=== PATIENT | male | born 1955 | race Caucasian/White ===

== ENCOUNTER 2022-08-26 00:44 | Inpatient (IN) | payer OTHER, SELFPAY ==
[2022-08-26] VITALS (83 sets, daily range): BP systolic 74–171; BP diastolic 48–114; PULSE 63–149; RESP 13–28; TEMP 36.8–37.3; O2SAT 85–100; BMI 27.1
[2022-08-26] MEDS: etomidate 2 mg/mL INJ SDV 10 mL 30 MG IVP (00:52)
[2022-08-26] MEDS: succinylcholine 20 mg/mL SDV 10mL 150 MG IVP (00:53)
--- NOTE | 2022-08-26 00:53 | CTR_ITS ---
PROCEDURE INFORMATION: Exam: CT Head Without Contrast Exam date and time: 08/26/2022 1:48 AM Age: 67 years old Clinical indication: Other: Unresponsive TECHNIQUE: Imaging protocol: Computed tomography of the head without contrast. Radiation optimization: All CT scans at this facility use at least one of these dose optimization techniques: automated exposure control; mA and/or kV adjustment per patient size (includes targeted exams where dose is matched to clinical indication); or iterative reconstruction. REPORTING DATA: Count of CT and Cardiac NM exams in prior 12 months: This patient has received [address] and 0 known cardiac nuclear medicine studies in the 12 months prior to the current study. COMPARISON: No relevant prior studies available. RADIATION DOSE METRICS: Total DLP (mGy-cm): 1241.18 FINDINGS: Brain: No cerebral/cerebellar infarct. No brain parenchymal or extra-axial hemorrhage. Cerebral ventricles: No ventriculomegaly. Paranasal sinuses: Paranasal sinuses are clear. No air-fluid level. Mastoid air cells: Visualized mastoid air cells are clear. Bones/joints: No calvarial or skull base fracture. Soft tissues: Unremarkable. CT/CT head wo con* [id number] IMPRESSION: 1. No acute infarct or hemorrhage. 2. No calvarial or skull base fracture.
--- NOTE | 2022-08-26 01:02 | CTR_ITS ---
PROCEDURE INFORMATION: Exam: CT Cervical Spine Without Contrast Exam date and time: 08/26/2022 1:52 AM Age: 67 years old Clinical indication: Injury or trauma; Fall; Other: Fell when becoming unresponsive; Blunt trauma; Additional info: Fall, unresponsive TECHNIQUE: Imaging protocol: Computed tomography of the cervical spine without contrast. Radiation optimization: All CT scans at this facility use at least one of these dose optimization techniques: automated exposure control; mA and/or kV adjustment per patient size (includes targeted exams where dose is matched to clinical indication); or iterative reconstruction. REPORTING DATA: Count of CT and Cardiac NM exams in prior 12 months: This patient has received [address] and 0 known cardiac nuclear medicine studies in the 12 months prior to the current study. COMPARISON: CT head w con [id number] 08/26/2022 1:48 AM RADIATION DOSE METRICS: Total DLP (mGy-cm): 511.78 FINDINGS: Tubes, catheters and devices: Orogastric and endotracheal tubes are in place. Bones/joints: Craniocervical articulation is normal. There is normal vertebral body alignment. There is normal vertebral body alignment. There is mild, diffuse disc space narrowing. The dens is intact. The lateral masses of C1 are symmetric. No fracture. Lungs: Lung apices are normal. Soft tissues: Unremarkable. CT/CT cervical spin wo con* [id number] IMPRESSION: No fracture.
--- NOTE | 2022-08-26 01:02 | XRR_ITS ---
PROCEDURE INFORMATION: Exam: XR Chest Exam date and time: 08/26/2022 12:21 AM Age: 67 years old Clinical indication: Device placement; Ett placement (vent status); Additional info: Unresponsive TECHNIQUE: Imaging protocol: Radiologic exam of the chest. Views: 1 view. COMPARISON: No relevant prior studies available. FINDINGS: Tubes, catheters and devices: ETT is present, tip is about 1 cm above feliz. NGT in place. Left chest defibrillator pad. Lungs: Moderate areas of lower lung hazy patchy lung interstitial density. Pleural spaces: No pneumothorax. Heart/Mediastinum: The heart is large. Bones/joints: Unremarkable. XR/XR chest 1V portable [id number] IMPRESSION: 1. ETT and NGT in place as described. 2. Large heart with severe atherosclerosis. 3. Hazy areas of lung base patchy density may be due to atelectasis, scarring, edema or pneumonitis. 4. No priors.
--- NOTE | 2022-08-26 01:03 | ECG_ITS ---
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 Measurements Intervals [place] Rate: 114 P: 0 MS: 0 QRS: -26 QRSD: 92 T: 18 QT: 316 QTc: 436 Interpretive Statements ATRIAL FIBRILLATION WITH RAPID VENTRICULAR RESPONSE WITH ABERRANT CONDUCTION OR VENTRICULAR PREMATURE COMPLEXES BORDERLINE LEFT AXIS DEVIATION [QRS AXIS < -20] MINIMAL ST DEPRESSION [0.025+ mV ST DEPRESSION] No previous ECG available for comparison Electronically Signed On 08-26-2022 11:28:40 CDT by Eligio Chairez M.D. [email or web address]
[2022-08-26] MEDS: sodium chloride 0.9% 1,000 ML 200 ML IV ×2 (01:04→05:25)
[2022-08-26] MEDS: propofol 10 mg/mL SDV 20 mL 40 MG IVP (01:04)
[2022-08-26] MEDS: propofol 1,000 MG/100 ML INJ 13.61 MG IV ×4 (01:13→22:49)
[2022-08-26 01:20] LABS: INR 1.26 (0.8-1.2)
[2022-08-26 01:21] LABS: Partial Thromboplastin Time 27.5 SECONDS (23.9-36.7)
[2022-08-26 01:23] LABS: D Dimer 0.62 ug/mIFEU (0-0.59)
[2022-08-26 01:24] LABS: ABG PCO2 59.4 mmHg (35-45); Arterial Blood Gas Hematocrit 56.7 % (42-52); Base Excess ABG -16.6 mmol/L (-2.0-2.0); Blood Gas Allen Test Pos; Blood Gas Sample Site Radial, left; Blood Gas Sample Type Arterial; HCO3 ABG 15.4 mmol/L (22-26); Oxygen Device VENT
[2022-08-26 01:24] LABS: Basophils # 0.1 10^3/uL (0.0-0.1); Basophils % 0.5 %; Eosinophils # 0.1 10^3/uL (0.0-0.8); Eosinophils % 0.3 %; Hematocrit 58.2 % (42.0-52.0); Hemoglobin 18.7 g/dL (11.7-16.6); Lymphocytes # 3.9 10^3/uL (0.8-4.8); Lymphocytes % 25.5 %; Mean Corpuscular HGB Conc 32.1 g/dL (30.0-36.0); Mean Corpuscular Hemoglobin 30.8 pg (28.0-34.0); Mean Corpuscular Volume 95.9 fl (80-94); Mean Platelet Volume 10.4 fL (7.4-10.4); Monocytes # 1.2 10^3/uL (0.2-0.9); Monocytes % 7.7 %; Neutrophils # 9.87 10^3/uL (1.8-7.7); Neutrophils % 65.4 %; Nucleated Red Blood Cells % 0 %; Platelet Count 214 10^3/cmm (130-400); Red Blood Count 6.07 10^6/uL (4.1-5.3); Red Cell Distribution Width 12.7 % (12.1-15.1); White Blood Count 15.1 10^3/uL (4.0-10.0)
[2022-08-26 01:25] LABS: ABG PH Result 7.02 (7.35-7.45)
[2022-08-26] MEDS: dilTIAZem 100 MG in sodium chloride 0.9% (add-van) 100 ML 10 MG IV (01:25)
[2022-08-26 01:37] LABS: Troponin(5th) Baseline 14 ng/L (0-15)
[2022-08-26 01:47] LABS: Alanine Aminotransferase 17 U/L (0-41); Albumin Level 4.8 g/dL (3.5-5.2); Alkaline Phosphatase 81 U/L (40-130); Anion Gap 40.4 (5-19); Aspartate Amino Transferase 23 U/L (0-40); Blood Urea Nitrogen 17 mg/dL (8-23); Calcium 9.6 mg/dL (8.5-10.5); Carbon Dioxide 15 mmol/L (22-29); Chloride 97 mmol/L (98-107); Globulin 3.3 g/dL (1.3-4.6); Glomerular Filtration Rate 46.8 mL/min (90-130); Glucose 194 mg/dL (65-115); NT Pro B Type Natriuretic Pept 105 pg/mL (0-125); Osmolality Calculated 315 mOsm/kg (285-295); Potassium 3.4 mmol/L (3.5-5.1); Sodium 149 mmol/L (136-145); Thyroid Stimulating Hormone 9.22 uIU/mL (0.27-4.20); Total Bilirubin 0.5 mg/dL (0.15-1.2); Total Protein 8.1 g/dL (6.6-8.7)
[2022-08-26 01:51] LABS: Creatinine Clr Calc Pharmacy 56.7657
[2022-08-26 01:54] LABS: Alcohol Level < 10 mg/dL (0-10)
[2022-08-26 01:55] LABS: Add Urine Microscopic? YES; Bilirubin Urine Neg (Negative); Blood Urine 3+ (Negative); Glucose Urine UA Norm (Normal); Ketones Urine 1+ (Negative); Leukocyte Esterase Urine Negative (Negative); Nitrate Urine Negative (Negative); Protein Urine 1+ (Negative); Urine Appearance Clear (CLEAR); Urine Color Yellow (Yellow); Urobilinogen Urine Neg (Negative); pH Urine 5 (5-7)
[2022-08-26 01:56] LABS: RBC Urine 0-4 /hpf (0-2); Squamous Epithelial Cell Urine 0-4 /hpf (0-5); WBC Urine 0-4 /hpf (0-5)
[2022-08-26 01:57] LABS: Add Urine Culture? No
[2022-08-26 02:48] LABS: Amphetamines Screen Urine Negative (Negative); Barbiturates Screen Urine Negative (Negative); Benzodiazepines Screen Urine Negative (Negative); Cocaine Screen Urine Negative (Negative); Opiate Screen Urine Negative (Negative); PCP Screen Urine Negative (Negative); THC Screen Urine Negative (Negative)
[2022-08-26 03:18] LABS: Lactate (Lactic Acid level) 4.6 mmol/L (0.5-2.2)
[2022-08-26] MEDS: propofol 1,000 MG/100 ML INJ 19.05 MG IV (03:24)
--- NOTE | 2022-08-26 04:02 | ECG_ITS ---
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 Measurements Intervals [place] Rate: 63 P: 54 DC: 187 QRS: -13 QRSD: 98 T: 29 QT: 395 QTc: 405 Interpretive Statements SINUS RHYTHM WITH OCCASIONAL SUPRAVENTRICULAR PREMATURE COMPLEXES Compared to ECG 08/26/2022 02:19:42 Atrial fibrillation no longer present Ventricular premature complex(es) no longer present Aberrant conduction of supraventricular beat(s) no longer present ST (T wave) deviation no longer present Electronically Signed On 08-26-2022 11:32:04 CDT by Eligio Chairez M.D. [id number]
[2022-08-26] MEDS: piperacillin-tazobactam 4.5 GM in sodium chloride 0.9% (plus) 50 ML IV (04:15)
--- NOTE | 2022-08-26 04:18 | ED_ITS ---
HPI - Syncope General: Chief Complaint: Cardiac Arrest/CPR Stated Complaint: agonal breathing Time Seen by Provider: 08/26/22 01:02 History of Present Illness: 67-year-old male with a history of depression. He presents obtunded. states that she was asleep, and heard him in the bathroom. She thought maybe he was having some stomach upset, but was not sure. He yelled out, and then she heard a thud. She found him in the bathroom not responsive. He was breathing. On EMS arrival, he was responsive only to painful stimulus. He was hypoxic, nonrebreather mask was placed on him with sats in the mid 80s. He remained at not responsive, only to painful stimuli and presents this way on arrival. He is mildly hypertensive. He is tachycardic with an irregular rate. MD complaint: collapsed Onset (ago): minute(s) -: minutes(s) Description of event: other Prodromal symptoms: other Witnessed: No Context: other Injuries sustained associated with event: other (unknown) Associated symptoms: Reports other Treatments prior to arrival: IV fluids and medication (narcan 2mg, no improvement) Review of Systems General: Reports: ROS unobtainable due to endotracheal tube, ROS unobtainable due to medical condition and ROS unobtainable due to mental status Physical Exam Const: GENERAL APPEARANCE: ill appearing ORIENTATION/CONSCIOUSNESS: Yes Other orientation findings (unresponsive) HENMT: COMMON NORMALS: normocephalic, atraumatic and Normal external nose present HEAD & SCALP: normocephalic and atraumatic FACE & SINUS: normal facial exam and face symmetric NOSE: Normal external nose present Eye: OTHER: Pupils are equal, sluggish but reactive. Neck/C-Spine: GENERAL: Yes trachea midline Chest: CHEST: Yes Symmetrical chest wall rise Resp: EFFORT & INSPECTION: Yes decreased respiratory effort AUSCULTATION: rhonchi Cardio: RATE: tachycardic RHYTHM: abnormal rhythm irregularly irregular GI: COMMON NORMALS: Normal to inspection, nondistended, normoactive bowel sounds present and Soft to palpation PALPATION: Yes Soft to palpation Extremity: COMMON NORMALS: no pedal edema Neuro: TIRSO COMA SCALE: document GCS findings [place] coma scale eye opening: None [place] coma scale verbal response: None [place] coma scale motor response: None [place] coma scale total score: 3 Skin: COMMON NORMALS: no wounds Procedures Intubation sedative: Etomidate Mg Given: 30 paralytic: Succinylcholine Mg Given: 150 Laryngoscope: Ema (4) ET Tube Size: 8 ET Tube Uncuffed: No Tube Secured Depth (cm): 26 Tube Secured Location: lips Tube Placement Confirmation: visualized tube passing through cords, equal breath sounds bilaterally and confirmation by capnometry Patient Tolerated Procedure: well and no complications Intubation Complications: none Course Vital Signs: Vital signs: Vital Signs Temperature 98.3 F 08/26/22 00:46 Pulse Rate 64 08/26/22 04:00 Respiratory Rate 14 08/26/22 04:00 Blood Pressure 124/78 08/26/22 04:00 Pulse Oximetry 100 08/26/22 04:00 Oxygen Delivery Me thod 08/26/22 04:00 Fraction of Inspir ed Oxygen 100 08/26/22 01:05 MDM - Syncope Medical Decision Making 67-year-old male with no prior history of atrial fibrillation. He presents in atrial fibrillation with rapid ventricular response, mild hypertension, and significant obtundation with hypoxic respiratory failure. He was intubated on arrival without complication. Fluid bolus was given, although a full septic bolus was not given given his risk of cardiogenic shock on presentation with atrial fibrillation. His white blood cell count is 15. Hemoglobin is 18.7. Creatinine is 1.5. His sodium is 149. Urinalysis is not remarkable. Urine drug screen is negative. Ethyl alcohol is negative. Lactate is 4.6. Blood gas, done shortly after intubation, shows a pH of 7.02 a bicarbonate of 15, and a PCO2 of 60. His anion gap is 40. The patient was placed on diltiazem for rapid atrial fibrillation. He was sedated with fentanyl and propofol. His rate eventually decreased, and he has now converted to sinus rhythm with a rate of 60-65. Blood pressure is 102/71, saturations are 100% on the ventilator. Head CT is negative for hemorrhage. Cervical spine CT is negative. Chest x-ray shows ET tube 1 cm above the feliz NGT in place and moderate areas of lower lung hazy patchy lung interstitial densities. His BNP is only 100. If first troponin is 14. He will go to the ICU. He has received vancomycin and Zosyn as empiric therapy is in the ER. Lab Data 08/26/22 00:55 08/26/22 00:[address] 08/26/22 00:53 IMPRESSION: 1. No acute infarct or hemorrhage. 2. No calvarial or skull base fracture. Cervical Spine CT 08/26/22 01:02 IMPRESSION: No fracture. Chest X-Ray 08/26/22 01:02 IMPRESSION: 1. ETT and NGT in place as described. 2. Large heart with severe atherosclerosis. 3. Hazy areas of lung base patchy density may be due to atelectasis, scarring, edema or pneumonitis. 4. No priors. Laboratory Results WBC 15.1 10^3/uL (4.0-10.0) H 08/26/22 00:55 RBC 6.07 10^6/uL (4.1-5.3) H 08/26/22 00:55 Hgb 18.7 g/dL (11.7-16.6) H 08/26/22 00:55 Hct 58.2 % (42.0-52.0) H 08/26/22 00:55 MCV 95.9 fl (80-94) H 08/26/22 00:55 MCH 30.8 pg (28.0-34.0) 08/26/22 00:55 MCHC 32.1 g/dL (30.0-36.0) 08/26/22 00:55 RDW 12.7 % (12.1-15.1) 08/26/22 00:55 Plt Count 214 10^3/cmm (130-400) 08/26/22 00:55 MPV 10.4 fL (7.4-10.4) 08/26/22 00:55 Neut % (Auto) 65.4 % 08/26/22 00:55 Lymph % (Auto) 25.5 % 08/26/22 00:55 [place] % (Auto) 7.7 % 08/26/22 00:55 Eos % (Auto) 0.3 % 08/26/22 00:55 Baso % (Auto) 0.5 % 08/26/22 00:55 Neut # (Auto) 9.87 10^3/uL (1.8-7.7) H 08/26/22 00:55 Lymph # (Auto) 3.9 10^3/uL (0.8-4.8) 08/26/22 00:55 [place] # (Auto) 1.2 10^3/uL (0.2-0.9) H 08/26/22 00:55 Eos # (Auto) 0.1 10^3/uL (0.0-0.8) 08/26/22 00:55 Baso # (Auto) 0.1 10^3/uL (0.0-0.1) 08/26/22 00:55 Nucleated RBC % (auto) 0 % 08/26/22 00:55 Nucleated RBCs # 0.0 /100WBC 08/26/22 00:55 PT 16.20 SECONDS (12.1-14.9) H 08/26/22 00:55 INR 1.26 (0.8-1.2) H 08/26/22 00:55 APTT 27.5 SECONDS (23.9-36.7) 08/26/22 00:55 D-Dimer 0.62 ug/mIFEU (0-0.59) H 08/26/22 00:55 Specimen Type Arterial 08/26/22 01:11 Sample Site Radial, left 08/26/22 01:11 ABG pH 7.02 (7.35-7.45) L* 08/26/22 01:11 ABG pCO2 59.4 mmHg (35-45) H 08/26/22 01:11 ABG pO2 105.0 mmHg (80.0-100.0) H 08/26/22 01:11 ABG HCO3 15.4 mmol/L (22-26) L 08/26/22 01:11 ABG Base Excess -16.6 mmol/L (-2.0-2.0) L 08/26/22 01:11 Luis Fernando Test Pos 08/26/22 01:11 Hematocrit 56.7 % (42-52) H 08/26/22 01:11 O2 Delivery Device Vent 08/26/22 01:11 FiO2 100.0 % 08/26/22 01:11 PEEP 5.0 cmH20 08/26/22 01:11 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 Marshal [employer] ID Alewe 08/26/22 01:11 Sodium 149 mmol/L (136-145) H 08/26/22 00:55 Potassium 3.4 mmol/L (3.5-5.1) L 08/26/22 00:55 Chloride 97 mmol/L (98-107) L 08/26/22 00:55 Carbon Dioxide 15 mmol/L (22-29) L 08/26/22 00:55 Anion Gap 40.4 (5-19) H 08/26/22 00:55 BUN 17 mg/dL (8-23) 08/26/22 00:55 Creatinine 1.5 mg/dL (0.7-1.2) H 08/26/22 00:55 GFR Calculation 46.8 mL/min (90-130) L 08/26/22 00:55 Glucose 194 mg/dL (65-115) H 08/26/22 00:55 Calculated Osmolality 315 mOsm/kg (285-295) H 08/26/22 00:55 Lactate 4.6 mmol/L (0.5-2.2) H* 08/26/22 02:38 Calcium 9.6 mg/dL (8.5-10.5) 08/26/22 00:55 Total Bilirubin 0.5 mg/dL (0.15-1.2) 08/26/22 00:55 AST 23 U/L (0-40) 08/26/22 00:55 ALT 17 U/L (0-41) 08/26/22 00:55 Alkaline Phosphatase 81 U/L (40-130) 08/26/22 00:55 Troponin T Baseline 14 ng/L (0-15) 08/26/22 00:55 NT-Pro-B Natriuret Pep 105 pg/mL (0-125) 08/26/22 00:55 Total Protein 8.1 g/dL (6.6-8.7) 08/26/22 00:55 Albumin 4.8 g/dL (3.5-5.2) 08/26/22 00:55 Globulin 3.3 g/dL (1.3-4.6) 08/26/22 00:55 TSH 9.22 uIU/mL (0.27-4.20) H 08/26/22 00:55 Urine Color Yellow (Yellow) 08/26/22 00:58 Urine Appearance Clear (CLEAR) 08/26/22 00:58 Urine pH 5 (5-7) 08/26/22 00:58 Ur Specific [place] 1.020 (1.005-1.030) 08/26/22 00:58 Urine Protein 1+ (Negative) H 08/26/22 00:58 Urine Glucose (UA) Norm (Normal) 08/26/22 00:58 Urine Ketones 1+ (Negative) H 08/26/22 00:58 Urine Blood 3+ (Negative) H 08/26/22 00:58 Urine Nitrate Negative (Negative) 08/26/22 00:58 Urine Bilirubin Neg (Negative) 08/26/22 00:58 Urine Urobilinogen Neg mg/dL (Negative) 08/26/22 00:58 Ur Leukocyte Esterase Negative (Negative) 08/26/22 00:58 Urine RBC 0-4 /hpf (0-2) H 08/26/22 00:58 Urine WBC 0-4 /hpf (0-5) H 08/26/22 00:58 Ur Squamous Epith Cells 0-4 /hpf (0-5) H 08/26/22 00:58 Amorphous Sediment Not Reportable 08/26/22 00:58 Urine Bacteria None /hpf (NONE) 08/26/22 00:58 Urine Opiates Screen Negative ng/mL (Negative) 08/26/22 00:58 Ur Barbiturates Screen Negative ng/mL (Negative) 08/26/22 00:58 Ur Phencyclidine Scrn Negative ng/mL (Negative) 08/26/22 00:58 Ur Amphetamines Screen Negative ng/mL (Negative) 08/26/22 00:58 U Benzodiazepines Scrn Negative ng/mL (Negative) 08/26/22 00:58 Urine Cocaine Screen Negative ng/mL (Negative) 08/26/22 00:58 U Marijuana (THC) Screen Negative ng/mL (Negative) 08/26/22 00:58 Ethyl Alcohol < 10 mg/dL (0-10) 08/26/22 00:55 Critical Care Time Critical Care Time: Critical Care Time: Yes Total Critical Care Time: 50 Attestation: This case had a high probability of a clinically significant, sudden, or life threatening deterioration of this patient's condition which required my full and direct attention, intervention and personal management. 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
[2022-08-26 05:26] LABS: ABG PCO2 46.6 mmHg (35-45); ABG PH Result 7.33 (7.35-7.45); Arterial Blood Gas Hematocrit 51.4 % (42-52); Base Excess ABG -1.6 mmol/L (-2.0-2.0); Blood Gas Allen Test Pos; Blood Gas Sample Site Radial, left; Blood Gas Sample Type Arterial; HCO3 ABG 24.8 mmol/L (22-26); Oxygen Device VENT
[2022-08-26 05:35] LABS: Troponin 5 2HR 27.62 ng/L (0-15)
[2022-08-26 05:36] LABS: Troponin 5 2HR Delta 13.62 ABS# (0-10)
--- NOTE | 2022-08-26 07:20 | USCV_ITS ---
Adrien Kellie Age: 67 Gender: M : 1955 Exam Date: 08/26/2022 08:59 Ordering Phys: Sabrina Yoon MD Technologist: Asaf Reveles Exam Location: [facility] [place] [place] Indication: cva BP: 107 / 72 HR: 66 Rhythm: Sinus Technical Quality: Adequate MEASUREMENTS (Male / Female) Normal Values 2D ECHO LV Diastolic Diameter PLAX 3.3 cm 4.2 - 5.9 / 3.9 - 5.3 cm LV Systolic Diameter PLAX 2.5 cm IVS Diastolic Thickness 1.1 cm 0.6 - 1.0 / 0.6 - 0.9 cm IVS Systolic Thickness 1.6 cm LVPW Diastolic Thickness 1.3 cm 0.6 - 1.0 / 0.6 - 0.9 cm LVPW Systolic Thickness 1.5 cm LVOT Diameter 2.1 cm LV Ejection Fraction 2D Teich 45.9 % LV Ejection Fraction MOD 2C 68.8 % LV Ejection Fraction 2C AL 67.3 % LA Diameter 3.8 cm M-MODE Aortic Annulus Diameter 3.3 cm LA Ao Ratio MM 1.3 MV E Point Septal Separation 1.5 cm DOPPLER AV Peak Velocity 111.0 cm/s LVOT Peak Velocity 78.0 cm/s AV Area Cont Eq vti 3.0 cm squared AV Area Cont Eq pk 2.4 cm squared MV Area PHT 5.0 cm squared Mitral E to A Ratio 0.9 MV E' Velocity 36.0 cm/s Mitral E to MV E' Ratio 7.5 Mitral E to LV E' Lateral Ratio 7.2 Mitral E to LV E' Septal Ratio 8.0 TR Peak Velocity 219.0 cm/s TR Peak Gradient 19.2 mmHg TV Peak E Velocity 76.0 cm/s Right Atrial Pressure 3.0 mmHg Pulmonary Artery Systolic Pressu 22.2 mmHg RV Acceleration Time 0.1 s FINDINGS Left Ventricle Normal left ventricular size and systolic function, EF 72 %. No regional wall motion abnormalities. Mild left ventricular hypertrophy. Grade I/IV diastolic dysfunction (abnormal relaxation filling pattern), normal to mildly elevated filling pressures. Right Ventricle The right ventricle is normal in size and function. Right Atrium The right atrium is normal in size. Left Atrium The left atrium is normal in size. Mitral Valve No gross abnormalities noted Aortic Valve Thickened aortic valve. Trace aortic valve regurgitation. Tricuspid Valve Trace to mild tricuspid valve regurgitation. Estimated pulmonary artery peak systolic pressure 26 mmHg Pulmonic Valve No gross abnormalities noted Pericardium Normal pericardium without effusion. Aorta Normal aortic annulus size. IVC Inferior vena cava not visualized. CONCLUSIONS Normal left ventricular size and systolic function, EF 72 %. No regional wall motion abnormalities. Mild left ventricular hypertrophy. Grade I/IV diastolic dysfunction (abnormal relaxation filling pattern), normal to mildly elevated filling pressures. Thickened aortic valve. Trace aortic valve regurgitation. Trace to mild tricuspid valve regurgitation. Estimated pulmonary artery peak systolic pressure 26 mmHg. There is no pericardial effusion. No similar previous studies are available for comparison Dr Stew Ambrose MD [facility] (Electronically Signed) Final Date: 26 August 2022 10:38 S
--- NOTE | 2022-08-26 07:23 | PC.PHAR ---
[facility]XED [facility] AT 7:15 AM
[2022-08-26 07:29] LABS: Troponin 5 6HR 34.65 ng/L (0-15)
--- NOTE | 2022-08-26 07:29 | PC.NURSE ---
Arrived from ED, ventilated at this time, no response to stimuli
[2022-08-26 07:31] LABS: Troponin 5 6HR Delta 20.65 ng/L (0-12)
--- NOTE | 2022-08-26 07:37 | PM.HP ---
Providers/Chief Complaint Admitting Physician: Sabrina Yoon MD Primary Care Provider: DC in [place] Chief Complaint: agonal breathing History of Present Illness Kellie Jurado is a 67 year old male who presented to the emergency room after his found him unresponsive in the bathroom. He was his usual self the day preceding and day of admission. He had gone to bed before his but that happens from time to time. No specific complaints reported. She heard him get up to go to the bathroom. Short time later she describes it as him sounding like he was hurting and then she heard him fall. He fell into the shower. The bathroom itself is small. She called 911 and then went to get a neighbor to help her. He was not responsive in the bathroom but he was still breathing. Some of his breathing was shallow. He did not lose pulse. She did not notice any abnormal movements initially. She attempted a rescue breath but found it difficult with the breathing he was doing on his own. She rolled him on his side. When EMS arrived he was hypoxic with room air sats around 80, improved on oxygen therapy to the 90s initially. On arrival here he had agonal breathing and again was hypoxemic. He was subsequently intubated. He was noted to be in atrial fibrillation with rapid ventricular response with heart rates as high as the 140s. Initial blood pressure was 160/110. No recent reports of fevers, chest pain, respiratory problems. Initial ABG showed 7.0 2/105. He received fluids, empiric antibiotics. Hospitalist were contacted for admission. 2-hour troponin delta was 13.62. EKG with nonspecific changes. Mr. Jurado does not have a personal history of coronary artery disease. No known history of diabetes, hypertension, hyperlipidemia. He does have a brother who had a heart attack a couple of years ago. Review of Systems General: Reports: ROS unobtainable due to medical condition and ROS unobtainable due to mental status Medications/Allergies Home Medications Medication Instructions Recorded Confirmed Last Taken Type hydroxyzine HCl 25 mg tablet 25 mg PO BEDTIME PRN Anxiety 08/26/22 08/26/22 08/25/22 History meloxicam 15 mg tablet 15 mg PO DAILY 08/26/22 08/26/22 08/25/22 History sertraline 50 mg tablet (Zoloft) 25 mg PO DAILY 08/26/22 08/26/22 08/25/22 History tizanidine 4 mg tablet 4 mg PO BEDTIME PRN Muscle Pain 08/26/22 08/26/22 08/25/22 History Allergies Allergy/AdvReac Type Severity Reaction Status Date / Time No Known Allergies Allergy Verified 08/26/22 07:41 PFSH Acute PFSH: Medical History MONTRELL (obstructive sleep apnea) Osteoarthritis PTSD (post-traumatic stress disorder) Restless legs syndrome (RLS) Surgical History History of surgery on left wrist due to chain saw injury Family History Brother CAD (coronary artery disease) Social History Smoking and tobacco status: never smoked Alcohol intake: current Alcohol use comment: rare alcohol use Substance/Drug Use: never Household members: spouse Marital status: Vitals/I&O/Wt Last Vital Signs Temp 98.3 F 08/26/22 00:46 Pulse 67 08/26/22 06:27 Resp 13 08/26/22 06:27 BP 118/76 08/26/22 06:27 Pulse Ox 100 08/26/22 06:27 O2 Del Method 08/26/22 06:27 FiO2 100 08/26/22 04:05 08/25/22 08/26/22 08/26/22 22:59 06:59 14:59 Intake Total 1218.607 / 1218.607 Balance 1218.607 / 1218.607 Weight last 48 hrs Weight 90.718 kg Physical Exam Narrative: Patient is intubated and sedated. Normocephalic, no evidence of trauma. Face is erythematous. Pupils are equal bilaterally. Nasopharynx is clear. Oropharynx with poor dentition and dry membranes. ET tube in place. Neck is supple. Lungs are clear to auscultation bilaterally anteriorly though decreased at both bases. No rhonchi or wheezes are noted. Cardiovascular exam reveals a regular rate and rhythm. Heart sounds are distant. No murmurs gallops or rubs. Pulses are 1+ and equal x4 with brisk capillary refill. Abdomen is soft, round, positive bowel sounds. Normal external genitalia. Shirley catheter is in place with yellow urine with some sediment noted. No pitting edema to the lower extremities. Patient has area of hyperpigmentation on his right upper thigh. I did not examine sacral area or back but no visible large bruises or sores otherwise appreciated. No abnormal movements. Urinary Catheter Management: Shirley: Cath Placed During This Visit: yes Urinary Catheter Date of Insertion: 08/26/22 Urinary Catheter Time of Insertion: 00:57 Data 08/26/22 00:55 08/26/22 00:55 Other Labs: Radiology Impressions Head CT 08/26/22 00:53 IMPRESSION: 1. No acute infarct or hemorrhage. 2. No calvarial or skull base fracture. Cervical Spine CT 08/26/22 01:02 IMPRESSION: No fracture. Chest X-Ray 08/26/22 01:02 IMPRESSION: 1. ETT and NGT in place as described. 2. Large heart with severe atherosclerosis. 3. Hazy areas of lung base patchy density may be due to atelectasis, scarring, edema or pneumonitis. 4. No priors. Laboratory Results WBC 15.1 10^3/uL (4.0-10.0) H 08/26/22 00:55 RBC 6.07 10^6/uL (4.1-5.3) H 08/26/22 00:55 Hgb 18.7 g/dL (11.7-16.6) H 08/26/22 00:55 Hct 58.2 % (42.0-52.0) H 08/26/22 00:55 MCV 95.9 fl (80-94) H 08/26/22 00:55 MCH 30.8 pg (28.0-34.0) 08/26/22 00:55 MCHC 32.1 g/dL (30.0-36.0) 08/26/22 00:55 RDW 12.7 % (12.1-15.1) 08/26/22 00:55 Plt Count 214 10^3/cmm (130-400) 08/26/22 00:55 MPV 10.4 fL (7.4-10.4) 08/26/22 00:55 Neut % (Auto) 65.4 % 08/26/22 00:55 Lymph % (Auto) 25.5 % 08/26/22 00:55 [place] % (Auto) 7.7 % 08/26/22 00:55 Eos % (Auto) 0.3 % 08/26/22 00:55 Baso % (Auto) 0.5 % 08/26/22 00:55 Neut # (Auto) 9.87 10^3/uL (1.8-7.7) H 08/26/22 00:55 Lymph # (Auto) 3.9 10^3/uL (0.8-4.8) 08/26/22 00:55 [place] # (Auto) 1.2 10^3/uL (0.2-0.9) H 08/26/22 00:55 Eos # (Auto) 0.1 10^3/uL (0.0-0.8) 08/26/22 00:55 Baso # (Auto) 0.1 10^3/uL (0.0-0.1) 08/26/22 00:55 Nucleated RBC % (auto) 0 % 08/26/22 00:55 Nucleated RBCs # 0.0 /100WBC 08/26/22 00:55 PT 16.20 SECONDS (12.1-14.9) H 08/26/22 00:55 INR 1.26 (0.8-1.2) H 08/26/22 00:55 APTT 27.5 SECONDS (23.9-36.7) 08/26/22 00:55 D-Dimer 0.62 ug/mIFEU (0-0.59) H 08/26/22 00:55 Specimen Type Arterial 08/26/22 05:14 Sample Site Radial, left 08/26/22 05:14 ABG pH 7.33 (7.35-7.45) L 08/26/22 05:14 ABG pCO2 46.6 mmHg (35-45) H 08/26/22 05:14 ABG pO2 110.0 mmHg (80.0-100.0) H 08/26/22 05:14 ABG HCO3 24.8 mmol/L (22-26) 08/26/22 05:14 ABG Base Excess -1.6 mmol/L (-2.0-2.0) 08/26/22 05:14 Luis Fernando Test Pos 08/26/22 05:14 Hematocrit 51.4 % (42-52) 08/26/22 05:14 O2 Delivery Device Vent 08/26/22 05:14 FiO2 80.0 % 08/26/22 05:14 PEEP 5.0 cmH20 08/26/22 05:14 Electronic Data Interchange Specialist ID Alexander 08/26/22 05:14 Sodium 149 mmol/L (136-145) H 08/26/22 00:55 Potassium 3.4 mmol/L (3.5-5.1) L 08/26/22 00:55 Chloride 97 mmol/L (98-107) L 08/26/22 00:55 Carbon Dioxide 15 mmol/L (22-29) L 08/26/22 00:55 Anion Gap 40.4 (5-19) H 08/26/22 00:55 BUN 17 mg/dL (8-23) 08/26/22 00:55 Creatinine 1.5 mg/dL (0.7-1.2) H 08/26/22 00:55 GFR Calculation 46.8 mL/min (90-130) L 08/26/22 00:55 Glucose 194 mg/dL (65-115) H 08/26/22 00:55 Calculated Osmolality 315 mOsm/kg (285-295) H 08/26/22 00:55 Calcium 9.6 mg/dL (8.5-10.5) 08/26/22 00:55 Total Bilirubin 0.5 mg/dL (0.15-1.2) 08/26/22 00:55 AST 23 U/L (0-40) 08/26/22 00:55 ALT 17 U/L (0-41) 08/26/22 00:55 Alkaline Phosphatase 81 U/L (40-130) 08/26/22 00:55 Troponin T Baseline 14 ng/L (0-15) 08/26/22 00:55 Troponin T 120 Minute 27.62 ng/L (0-15) H 08/26/22 05:05 Delta Troponin T 13.62 ABS# (0-10) H* 08/26/22 05:05 NT-Pro-B Natriuret Pep 105 pg/mL (0-125) 08/26/22 00:55 Total Protein 8.1 g/dL (6.6-8.7) 08/26/22 00:55 Albumin 4.8 g/dL (3.5-5.2) 08/26/22 00:55 Globulin 3.3 g/dL (1.3-4.6) 08/26/22 00:55 TSH 9.22 uIU/mL (0.27-4.20) H 08/26/22 00:55 Urine Color Yellow (Yellow) 08/26/22 00:58 Urine Appearance Clear (CLEAR) 08/26/22 00:58 Urine pH 5 (5-7) 08/26/22 00:58 Ur Specific [place] 1.020 (1.005-1.030) 08/26/22 00:58 Urine Protein 1+ (Negative) H 08/26/22 00:58 Urine Glucose (UA) Norm (Normal) 08/26/22 00:58 Urine Ketones 1+ (Negative) H 08/26/22 00:58 Urine Blood 3+ (Negative) H 08/26/22 00:58 Urine Nitrate Negative (Negative) 08/26/22 00:58 Urine Bilirubin Neg (Negative) 08/26/22 00:58 Urine Urobilinogen Neg mg/dL (Negative) 08/26/22 00:58 Ur Leukocyte Esterase Negative (Negative) 08/26/22 00:58 Urine RBC 0-4 /hpf (0-2) H 08/26/22 00:58 Urine WBC 0-4 /hpf (0-5) H 08/26/22 00:58 Ur Squamous Epith Cells 0-4 /hpf (0-5) H 08/26/22 00:58 Amorphous Sediment Not Reportable 08/26/22 00:58 Urine Bacteria None /hpf (NONE) 08/26/22 00:58 Urine Opiates Screen Negative ng/mL (Negative) 08/26/22 00:58 Ur Barbiturates Screen Negative ng/mL (Negative) 08/26/22 00:58 Ur Phencyclidine Scrn Negative ng/mL (Negative) 08/26/22 00:58 Ur Amphetamines Screen Negative ng/mL (Negative) 08/26/22 00:58 U Benzodiazepines Scrn Negative ng/mL (Negative) 08/26/22 00:58 Urine Cocaine Screen Negative ng/mL (Negative) 08/26/22 00:58 U Marijuana (THC) Screen Negative ng/mL (Negative) 08/26/22 00:58 Ethyl Alcohol < 10 mg/dL (0-10) 08/26/22 00:55 A&P Assessment and plan (1) Syncope: Associated with loss of consciousness. Specific etiology of event is unclear. Differential includes acute WI, CVA, thrombotic event, arrhythmia, medication effect, seizure, accidental trauma, among others. (2) Acute respiratory failure with hypoxia and hypercapnia: When specifically asked patient does have a history of sleep apnea as he has a CPAP machine at home though he does not use it. No other known respiratory disease. He was hypoxic and hypercapnic at presentation necessitating intubation. (3) Atrial fibrillation with rapid ventricular response: No prior history of atrial fibrillation, has since converted to sinus rhythm, may be secondary to acute events (4) Acidosis, lactic: Could be secondary to hypoxemia, does have leukocytosis and was initially tachycardic but has maintained blood pressures. Chest x-ray with some hazy opacities but no recent respiratory symptoms. (5) Acute kidney injury: Versus chronic kidney disease. No baseline values for comparison but has no known history. He is on chronic meloxicam. (6) Hyperglycemia: Without a known history of diabetes (7) PTSD (post-traumatic stress disorder): On chronic sertraline and as needed hydralazine (8) Restless legs syndrome (RLS): On chronic tizanidine (9) Osteoarthritis: On chronic meloxicam Plan Polycythemia, baseline hemoglobin unknown, has potential secondary etiologies based on available history Elevated TSH Inpatient admission Telemetry monitoring Continue serial cardiac enzymes Echocardiogram and carotid ultrasound Cardiology consultation, discussed with Dr. Arnol Rosa drleeann as needed for rate control, weaning as able Continue ventilatory support currently Propofol and fentanyl for sedation Serial neuro exams Continue IV fluids Blood cultures Empiric antibiotics Sliding scale insulin Check hemoglobin A1c Check lipid panel Shirley catheter for close monitoring of urine output Hold home medications currently Recheck hemoglobin after fluids Check free T3 and free T4 [facility] previous labs PPI for GI prophylaxis Subcu heparin for DVT prophylaxis Supportive care otherwise Reviewed current status, findings, concerns and plans with patient's and gave her an opportunity to ask questions. Explained that we are not sure what the primary event was at this time but that we would evaluate from cardiac, pulmonary, vascular and neurological standpoint as outlined above and monitor how he responds to treatment. Also discussed empiric coverage for possibility of infection. She is agreeable with plan of care at this time and hopeful that her will recover. Full code Attestations Medical Necessity Statement*: Anticipated stay greater than 2 midnights in this gentleman with issues as outlined above. He is currently requiring ventilatory support, cardiac monitoring and care and other work-up as outlined. and High Time for a total of 80 minutes, includes reviewing past or interval history, examining/interviewing patient, placing orders, counseling patient/family/other support and documenting encounter Diagnoses Syncope R55 Acute respiratory failure with hypoxia and hypercapnia J96.01; J96.02 Atrial fibrillation with rapid ventricular response I48.91 Acidosis, lactic E87.20 Acute kidney injury N17.9 Hyperglycemia R73.9 PTSD (post-traumatic stress disorder) F43.10 Restless legs syndrome (RLS) G25.81 Osteoarthritis M19.90
--- NOTE | 2022-08-26 07:56 | USCV_ITS ---
Kellie Jurado Age: 67 Gender: M : 1955 Exam Date: 08/26/2022 09:31 Ordering Phys: Sabrina Yoon MD Technologist: ALLISON Exam Location: [facility] – [place] Indication: SYNCOPE AND LOC Risk Factors: Previous Vascular Surgery: Right Brachial BP: / Left Brachial BP: / Right Left Velocity (cm/s) Spectral Plaque Velocity (cm/s) Spectral Plaque Syst/Diast Broadening Syst/Diast Broadening 66.80/ 16.30 Prox CCA 85.40 / 19.70 80.00/ 24.90 Mid CCA 105.60/ 28.00 69.90/ 21.80 Distal CCA 96.30 / 29.50 76.00/ 22.20 Prox ICA 95.70 / 18.80 76.90/ 21.40 Mid ICA 70.30 / 21.60 70.10/ 21.40 Distal ICA 43.60 / 18.30 79.50 ECA 67.60 0.96 ICA/CCA 0.91 Antegrade Vertebral Antegrade 41.10/ 15.00 cm/s 31.90/ 16.20 cm/s Tri Subclavian Tri 77.80 71.30 CONCLUSIONS Right ICA stenosis <50%. Left ICA stenosis <50%. Normal antegrade Doppler flow noted in the left vertebral artery. Normal antegrade Doppler flow noted in the right vertebral artery. Tre Almodovar MD (Electronically Signed) Final Date: 26 August 2022 14:49 S
[2022-08-26 07:59] LABS: Estmated Average Glucose 146; Hemoglobin A1C 6.7 % (4.0-6.0)
[2022-08-26 08:09] LABS: Lactate (Lactic Acid level) 2.7 mmol/L (0.5-2.2)
[2022-08-26] MEDS: sodium chlor 0.9% + KCl 20 mEq 20 MEQ/1,000 ML BAG 125 MEQ IV (08:15)
[2022-08-26] MEDS: levofloxacin-dextrose 5 % 750 MG/150 ML PREMIX 100 MG IV (08:15)
[2022-08-26] MEDS: docusate sodium 100 mg Capsule PO ×2 (08:15→17:48)
[2022-08-26] MEDS: enoxaparin 40 mg/0.4 mL Syringe SUBCUT (08:15)
[2022-08-26] MEDS: pantoprazole 40 mg SDV IVP (08:16)
[2022-08-26 08:17] LABS: Chol HDL Ratio 5.61 mg/dL (1.0-5.00); Cholesterol 185 mg/dL (0-200); Free T4 Free Thyroxine 0.98 ng/dL (0.82-1.77); HDL Cholesterol 33 mg/dL (60-100); LDL Cholesterol Calculated 99 mg/dL (50-129); T3 Free 3.2 PG/ML (2.0-4.4); Triglycerides 265 mg/dL (0-150)
[2022-08-26 08:22] LABS: Glucose Point of Care 152 mg/dL (70-110)
[2022-08-26] MEDS: insulin lispro 100 unit/1 mL SUBCUT ×2 (08:24→17:48)
--- NOTE | 2022-08-26 08:35 | PM.CONSULT ---
Providers/Reason For Consult Consulting Physician/Specialty*: GERARDO Ambrose MD/cardiology Reason for Consult*: GERARDO Ambrose MD/cardiology Requesting Physician: Dr. Bennett/Dr. Diaz Attending Physician: Cade Diaz MD History of Present Illness History of Present Illness Kellie Jurado is a 67 year old male with a history of PTSD and sleep apnea was brought to the emergency room today and has some mild response to state and respiratory distress. He got intubated in the emergency room and is admitted to hospital for further evaluation management. According to his , at around 11:30 PM she had him making some uncomfortable noise in the bathroom. Thinking that he might be having some stomach issues, she went back to bed. Then she had some unusual noises in the bathroom followed by a thud. She saw him lying on the floor partly into the shower, looks like a seizing. He was not responding to verbal commands. His respiration was labored. He had a palpable pulse. When the EMS arrived, he was found to be hypoxic with his oxygen saturation in the 80s. He was still unresponsive to verbal commands. His oxygen saturation went up into the 90s with a nonrebreathing mask. In the emergency room, he was found to be acidotic and got intubated. He also was found to be in atrial fibrillation with rapid ventricular rate in the emergency room. He is spontaneously converted to sinus rhythm at this time. His baseline troponin was 14 with a delta of 13.62 at 2 hours. This patient has no previous history for coronary artery disease, myocardial infarction or congestive heart failure. He is known to have sleep apnea but has not been using the CPAP machine. He also is known to have posttraumatic stress disorder. He takes medications for anxiety and muscle spasms. No history for smoking abuse or alcohol abuse. He is in a brother had a two-vessel bypass surgery 2 years ago. His father had myocardial infarction in his 70s. Mother also had heart problems. Details are not available. He has not been complaining of any chest pain or shortness of breath in the recent past. Did not have any fever or chills. He has been complaining of tooth aches lately. He also has chronic aches and pains. He takes anti-inflammatory medications on a regular basis. Review of Systems Narrative: CONSTITUTIONAL: No fever or chills. EYES: No blurring of vision or other visual disturbances lately. ENT: No hoarseness of voice, auditory disturbances or sore throat. CARDIOVASCULAR: As mentioned above. RESPIRATORY: History of sleep apnea as mentioned above GASTROINTESTINAL: No hematemesis or melena. GENITOURINARY: No dysuria or hematuria. INTEGUMENTARY: No skin rashes or history of skin cancer. NEURO: As mentioned above PSYCHIATRIC: No history of psychosis or major depression. HEMATOLOGIC: No bleeding disorders or significant anemia. ENDOCRINE: No history of polyuria or polydipsia. MUSCULOSKELETAL: Aches and pains in the joints ALLERGY/IMMUNOLOGY: As mentioned above. Medications/Allergies Home Medications Medication Instructions Recorded Confirmed Last Taken Type hydroxyzine HCl 25 mg tablet 25 mg PO BEDTIME PRN Anxiety 08/26/22 08/26/22 08/25/22 History meloxicam 15 mg tablet 15 mg PO DAILY 08/26/22 08/26/22 08/25/22 History sertraline 50 mg tablet (Zoloft) 25 mg PO DAILY 08/26/22 08/26/22 08/25/22 History tizanidine 4 mg tablet 4 mg PO BEDTIME PRN Muscle Pain 08/26/22 08/26/22 08/25/22 History Allergies Allergy/AdvReac Type Severity Reaction Status Date / Time No Known Allergies Allergy Verified 08/26/22 07:41 Current Medications Generic Name Dose Route Start Last Admin Trade Name Freq PRN Reason Stop Dose Admin Docusate Sodium 100 mg 08/26/22 09:00 08/26/22 08:15 Docusate Sodium 100 Mg Capsule PO 100 mg BID LIZZETTE Administration Enoxaparin Sodium 40 mg 08/26/22 07:30 08/26/22 08:15 Enoxaparin 40 Mg/0.4 Ml Syringe SUBCUT 40 mg Q24H LIZZETTE Administration Propofol 1,000 mg in 100 mls @ 0 mls/hr 08/26/22 01:00 08/26/22 06:39 Diprivan IV 25 mcg/kg/min .Q0M LIZZETTE 13.61 mls/hr Administration Protocol Per Protocol Fentanyl 2,500 mcg/ Sodium 250 mls @ 0 mls/hr 08/26/22 01:00 08/26/22 02:42 Chloride IV 50 mcg/hr .Q0M LIZZETTE 5 mls/hr Titration Protocol Per Protocol Diltiazem HCl 100 mg/ Sodium 100 mls @ 0 mls/hr 08/26/22 01:15 08/26/22 03:28 Chloride IV 0 mg/hr .Q0M LIZZETTE 0 mls/hr Titration Protocol Per Protocol Levofloxacin/Dextrose 750 mg in 150 mls @ 100 mls/hr 08/26/22 07:15 08/26/22 08:15 Levaquin-D5w IV 100 mls/hr Q24H LIZZETTE Administration Protocol Insulin Human Lispro 0 unit 08/26/22 08:00 08/26/22 08:24 Insulin Lispro 100 Unit/1 Ml SUBCUT 2 unit TIDWM LIZZETTE Administration Protocol Pantoprazole Sodium 40 mg 08/26/22 09:00 08/26/22 08:16 Pantoprazole 40 Mg Sdv IVP 40 mg DAILY LIZZETTE Administration PFSH Acute PFSH: Medical History MONTRELL (obstructive sleep apnea) Osteoarthritis PTSD (post-traumatic stress disorder) Restless legs syndrome (RLS) Surgical History History of surgery on left wrist due to chain saw injury Family History Brother CAD (coronary artery disease) Social History Smoking and tobacco status: never smoked Alcohol intake: current Alcohol use comment: rare alcohol use Substance/Drug Use: never Household members: spouse Marital status: Vitals/I&O/Wt Last Vital Signs Temp 98.3 F 08/26/22 00:46 Pulse 71 08/26/22 08:00 Resp 14 08/26/22 08:05 BP 107/72 08/26/22 08:00 Pulse Ox 99 08/26/22 08:05 O2 Del Method 08/26/22 07:30 FiO2 70 08/26/22 08:05 08/25/22 08/26/22 08/26/22 22:59 06:59 14:59 Intake Total 1218.607 / 1218.607 Balance 1218.607 / 1218.607 Weight last 48 hrs Weight 200 lb Physical Exam Narrative: GENERAL: The patient is intubated and sedated. HEENT: No significant pallor, icterus or lymphadenopathy.Oral cavity: There are no mucous membrane lesions. NECK: Trachea appears to be central. No masses noted. No JVD or thyromegaly appreciated. RESPIRATORY: Chest is symmetrical. No intercostals muscle retraction or any accessory muscle activation. There is no chest wall tenderness. Breath sounds are heard bilaterally. No rales or rhonchi heard. No evidence of any consolidation. BREASTS: Deferred. HEART: The heart sounds are normal. No S3 or S4. No significant murmurs. No pericardial rub ABDOMEN: No vessel pulsations or distention. No tenderness. No organomegaly appreciated. Bowel sounds are normally heard. : Deferred. RECTAL: Deferred. LYMPHATIC: No lymphadenopathy noted in the neck. EXTREMITIES: No edema or cyanosis. No clubbing. MUSCULOSKELETAL: No acute joint deformities or swelling SKIN: There are no significant rashes or ecchymosis NEUROPSYCHIATRIC: Patient is intubated and sedated. Seems to be moving all extremities. Urinary Catheter Management: Shirley: Cath Placed During This Visit: yes Urinary Catheter Date of Insertion: 08/26/22 Urinary Catheter Time of Insertion: 00:57 Data 08/26/22 00:55 08/26/22 00:55 Micro: Laboratory Last Values WBC 15.1 10^3/uL (4.0-10.0) H 08/26/22 00:55 RBC 6.07 10^6/uL (4.1-5.3) H 08/26/22 00:55 Hgb 18.7 g/dL (11.7-16.6) H 08/26/22 00:55 Hct 58.2 % (42.0-52.0) H 08/26/22 00:55 MCV 95.9 fl (80-94) H 08/26/22 00:55 MCH 30.8 pg (28.0-34.0) 08/26/22 00:55 MCHC 32.1 g/dL (30.0-36.0) 08/26/22 00:55 RDW 12.7 % (12.1-15.1) 08/26/22 00:55 Plt Count 214 10^3/cmm (130-400) 08/26/22 00:55 MPV 10.4 fL (7.4-10.4) 08/26/22 00:55 Neut % (Auto) 65.4 % 08/26/22 00:55 Lymph % (Auto) 25.5 % 08/26/22 00:55 [place] % (Auto) 7.7 % 08/26/22 00:55 Eos % (Auto) 0.3 % 08/26/22 00:55 Baso % (Auto) 0.5 % 08/26/22 00:55 Neut # (Auto) 9.87 10^3/uL (1.8-7.7) H 08/26/22 00:55 Lymph # (Auto) 3.9 10^3/uL (0.8-4.8) 08/26/22 00:55 [place] # (Auto) 1.2 10^3/uL (0.2-0.9) H 08/26/22 00:55 Eos # (Auto) 0.1 10^3/uL (0.0-0.8) 08/26/22 00:55 Baso # (Auto) 0.1 10^3/uL (0.0-0.1) 08/26/22 00:55 Nucleated RBC % (auto) 0 % 08/26/22 00:55 Nucleated RBCs # 0.0 /100WBC 08/26/22 00:55 PT 16.20 SECONDS (12.1-14.9) H 08/26/22 00:55 INR 1.26 (0.8-1.2) H 08/26/22 00:55 APTT 27.5 SECONDS (23.9-36.7) 08/26/22 00:55 D-Dimer 0.62 ug/mIFEU (0-0.59) H 08/26/22 00:55 Specimen Type Arterial 08/26/22 05:14 Sample Site Radial, left 08/26/22 05:14 ABG pH 7.33 (7.35-7.45) L 08/26/22 05:14 ABG pCO2 46.6 mmHg (35-45) H 08/26/22 05:14 ABG pO2 110.0 mmHg (80.0-100.0) H 08/26/22 05:14 ABG HCO3 24.8 mmol/L (22-26) 08/26/22 05:14 ABG Base Excess -1.6 mmol/L (-2.0-2.0) 08/26/22 05:14 Luis Fernando Test Pos 08/26/22 05:14 Hematocrit 51.4 % (42-52) 08/26/22 05:14 O2 Delivery Device Vent 08/26/22 05:14 FiO2 80.0 % 08/26/22 05:14 PEEP 5.0 cmH20 08/26/22 05:14 Compliance Auditor ID Alewe 08/26/22 05:14 Sodium 149 mmol/L (136-145) H 08/26/22 00:55 Potassium 3.4 mmol/L (3.5-5.1) L 08/26/22 00:55 Chloride 97 mmol/L (98-107) L 08/26/22 00:55 Carbon Dioxide 15 mmol/L (22-29) L 08/26/22 00:55 Anion Gap 40.4 (5-19) H 08/26/22 00:55 BUN 17 mg/dL (8-23) 08/26/22 00:55 Creatinine 1.5 mg/dL (0.7-1.2) H 08/26/22 00:55 GFR Calculation 46.8 mL/min (90-130) L 08/26/22 00:55 Glucose 194 mg/dL (65-115) H 08/26/22 00:55 POC Glucose 152 mg/dL (70-110) H 08/26/22 08:19 Estimat Average Glucose 146 08/26/22 07:41 Hemoglobin A1c 6.7 % (4.0-6.0) H 08/26/22 07:41 Calculated Osmolality 315 mOsm/kg (285-295) H 08/26/22 00:55 Lactate 2.7 mmol/L (0.5-2.2) H 08/26/22 07:41 Calcium 9.6 mg/dL (8.5-10.5) 08/26/22 00:55 Total Bilirubin 0.5 mg/dL (0.15-1.2) 08/26/22 00:55 AST 23 U/L (0-40) 08/26/22 00:55 ALT 17 U/L (0-41) 08/26/22 00:55 Alkaline Phosphatase 81 U/L (40-130) 08/26/22 00:55 Troponin T Baseline 14 ng/L (0-15) 08/26/22 00:55 Troponin T 120 Minute 27.62 ng/L (0-15) H 08/26/22 05:05 Delta Troponin T 13.62 ABS# (0-10) H* 08/26/22 05:05 Troponin T Hi Sens 6Hr 34.65 ng/L (0-15) H 08/26/22 07:01 Troponin T Hi Sens 6Hr Delta 20.65 ng/L (0-12) H* 08/26/22 07:01 NT-Pro-B Natriuret Pep 105 pg/mL (0-125) 08/26/22 00:55 Total Protein 8.1 g/dL (6.6-8.7) 08/26/22 00:55 Albumin 4.8 g/dL (3.5-5.2) 08/26/22 00:55 Globulin 3.3 g/dL (1.3-4.6) 08/26/22 00:55 Triglycerides 265 mg/dL (0-150) H 08/26/22 07:41 Cholesterol 185 mg/dL (0-200) 08/26/22 07:41 LDL Cholesterol, Calc 99 mg/dL (50-129) 08/26/22 07:41 HDL Cholesterol 33 mg/dL (60-100) L 08/26/22 07:41 LDL/HDL Ratio 3.00 RATIO (0.00-3.22) 08/26/22 07:41 Cholesterol/HDL Ratio 5.61 mg/dL (1.0-5.00) H 08/26/22 07:41 TSH 9.22 uIU/mL (0.27-4.20) H 08/26/22 00:55 Free T4 0.98 ng/dL (0.82-1.77) 08/26/22 07:41 Free T3 3.2 PG/ML (2.0-4.4) 08/26/22 07:41 Urine Color Yellow (Yellow) 08/26/22 00:58 Urine Appearance Clear (CLEAR) 08/26/22 00:58 Urine pH 5 (5-7) 08/26/22 00:58 Ur Specific [place] 1.020 (1.005-1.030) 08/26/22 00:58 Urine Protein 1+ (Negative) H 08/26/22 00:58 Urine Glucose (UA) Norm (Normal) 08/26/22 00:58 Urine Ketones 1+ (Negative) H 08/26/22 00:58 Urine Blood 3+ (Negative) H 08/26/22 00:58 Urine Nitrate Negative (Negative) 08/26/22 00:58 Urine Bilirubin Neg (Negative) 08/26/22 00:58 Urine Urobilinogen Neg mg/dL (Negative) 08/26/22 00:58 Ur Leukocyte Esterase Negative (Negative) 08/26/22 00:58 Urine RBC 0-4 /hpf (0-2) H 08/26/22 00:58 Urine WBC 0-4 /hpf (0-5) H 08/26/22 00:58 Ur Squamous Epith Cells 0-4 /hpf (0-5) H 08/26/22 00:58 Amorphous Sediment Not Reportable 08/26/22 00:58 Urine Bacteria None /hpf (NONE) 08/26/22 00:58 Urine Opiates Screen Negative ng/mL (Negative) 08/26/22 00:58 Ur Barbiturates Screen Negative ng/mL (Negative) 08/26/22 00:58 Ur Phencyclidine Scrn Negative ng/mL (Negative) 08/26/22 00:58 Ur Amphetamines Screen Negative ng/mL (Negative) 08/26/22 00:58 U Benzodiazepines Scrn Negative ng/mL (Negative) 08/26/22 00:58 Urine Cocaine Screen Negative ng/mL (Negative) 08/26/22 00:58 U Marijuana (THC) Screen Negative ng/mL (Negative) 08/26/22 00:58 Ethyl Alcohol < 10 mg/dL (0-10) 08/26/22 00:55 CXR: My impression: Mild cardiomegaly Patchy areas of lung densities bilaterally at the bases. Has some prominent venous markings Endotracheal tube in place ? 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 Some nonspecific T wave changes. EKG 2: My Interpretation: Atrial fibrillation with rapid ventricular rate of 114 bpm. Occasional PVCs. A&P Assessment and plan (1) Syncope: Apparently had some seizure-like activities, noticed by his . Cardiac etiology cannot be excluded. Patient need to be closely monitored. In view of his family history, underlying coronary artery disease is a consideration. This may need to be further evaluated. (2) Atrial fibrillation with rapid ventricular response: Patient is currently back into sinus rhythm. No acute ischemic changes in the EKG. It may be appropriate to keep him on the anticoagulation. (3) Acute respiratory failure with hypoxia and hypercapnia: Sleep apnea could be a contributing factor. No evidence of heart failure at this point. A primary pulmonary pathology also need to be looked into. (4) Cardiomegaly: Patient's LV function is not known. An echocardiogram was ordered. I will be reviewing the study. (5) Elevated troponin: Most likely a type II VT from atrial fibrillation/respiratory distress. Need to rule out underlying coronary ischemia. (6) Elevated blood pressure reading: A low-dose of beta-luis fernando would be appropriate to control the blood pressure. (7) Acute kidney injury: This could be multifactorial. Plan Other problems are Mild leukocytosis Mild hypokalemia Hyperglycemia I will review the echocardiogram. Metoprolol 25 mg twice daily through the NG tube May continue with subcu Lovenox and p.o. aspirin Based on the clinical progress and the results of the echocardiogram, further recommendations will be made. Thank you for the opportunity well this patient make these recommendations Consult Attestations Medical Necessity Statement: Patient requires continued hospital stay for close monitoring and further management Coding Level of Care Code 60963 Diagnoses Syncope R55 Atrial fibrillation with rapid ventricular response I48.91 Acute respiratory failure with hypoxia and hypercapnia J96.01; J96.02 Cardiomegaly I51.7 Elevated troponin R77.8 Elevated blood pressure reading R03.0 Acute kidney injury N17.9
[2022-08-26] MEDS: dextrose 5% + KCl 20 mEq 20 MEQ/1,000 ML BAG 100 MEQ IV (09:15)
[2022-08-26 11:30] LABS: Glucose Point of Care 136 mg/dL (70-110)
--- NOTE | 2022-08-26 11:31 | PC.NURSE ---
Map 63, BP 79/55, Dr. Diaz gave t.o. for 1/2 NS bolus
[2022-08-26] MEDS: sodium chloride 0.45% 1,000 ML 150 ML IV (11:39)
[2022-08-26] MEDS: piperacillin-tazobactam 3.375 GM in sodium chloride 0.9% (plus) 50 ML IV ×2 (11:45→19:54)
--- NOTE | 2022-08-26 13:22 | USCV_ITS ---
Kellie Jurado Age: 67 Gender: M : 1955 Exam Date: 08/26/2022 15:09 Ordering Phys: Cade Diaz MD Technologist: Asaf Reveles Exam Location: [facility] [place]_ Indication: bed statis HISTORY: Swelling. PROCEDURES: The venous duplex Doppler examination of both lower extremities was performed in the standard fashion. Bilaterally, the common femoral, superficial femoral, profunda femoral, popliteal, posterior tibial, greater saphenous veins, and the peroneal trunk were identified and interrogated in the standard fashion. These veins were found to be easily compressible with spontaneous blood flow. No evidence of insufficiency or thrombus noted. FINDINGS: Normal 2-D Doppler and augmentation and compressibility throughout the lower extremity venous structures. Additional imaging through the proximal calf veins also reveals no thrombus. Limited evaluation of the greater saphenous vein is patent with no thrombus. The veins were found to be easily compressible with spontaneous blood flow. Non pulsatile flow pattern. CONCLUSIONS No evidence of DVT in the above-mentioned identifiable veins. Dr Stew Ambrose MD [facility] (Electronically Signed) Final Date: 26 August 2022 22:15 S
[2022-08-26 17:32] LABS: Glucose Point of Care 161 mg/dL (70-110)
[2022-08-26 18:15] LABS: Blood Urea Nitrogen 24 mg/dL (8-23); Calcium 7.8 mg/dL (8.5-10.5); Carbon Dioxide 22 mmol/L (22-29); Chloride 102 mmol/L (98-107); Glomerular Filtration Rate 31.8 mL/min (90-130); Glucose 153 mg/dL (65-115); Osmolality Calculated 295 mOsm/kg (285-295); Sodium 139 mmol/L (136-145)
--- NOTE | 2022-08-26 19:04 | PM.MISC ---
Miscellaneous Note Note: Patient was admitted earlier this morning's his labs vitals, ventilator settings, has been reviewed, appropriate changes have been made, family has been appropriately updated.
[2022-08-26 21:39] LABS: Glucose Point of Care 131 mg/dL (70-110)
[2022-08-27] VITALS (74 sets, daily range): BP systolic 87–172; BP diastolic 60–105; PULSE 68–122; RESP 10–26; TEMP 37.2–38.5; O2SAT 91–98
[2022-08-27] MEDS: propofol 1,000 MG/100 ML INJ 27.22 MG IV ×4 (00:40→10:13)
[2022-08-27 02:48] LABS: ABG PCO2 39.6 mmHg (35-45); ABG PH Result 7.34 (7.35-7.45); Alveolar-Arterial Oxygen Gradi 18.8 mmHg (5-10); Arterial Blood Gas Hematocrit 50.4 % (42-52); Base Excess ABG -4.4 mmol/L (-2.0-2.0); Blood Gas Allen Test Pos; Blood Gas Sample Site Radial, right; Blood Gas Sample Type Arterial; Blood Gas Tidal Volume 0.45; Carboxyhemoglobin 1.2 %THgb (0.4-20.1); HCO3 ABG 21.1 mmol/L (22-26); HGB O2 Sat 96.5 % (95-100); Ionized Calcium Level - ABG 1.2 mmol/L (1.1-1.4); Methemoglobin 0.7 % (0.4-1.5); Oxygen Device VENT; Oxygen Saturation ABG 98.4; PO2 ABG 92.4 mmHg (80.0-100.0); Potassium Level - ABG 4.1 mmol/L (3.5-5.0); Total Hemoglobin 16.4 g/dL (14-18)
[2022-08-27 03:31] LABS: Glucose Point of Care 201 mg/dL (70-110)
[2022-08-27 04:11] LABS: Alanine Aminotransferase 14 U/L (0-41); Albumin Level 3.5 g/dL (3.5-5.2); Alkaline Phosphatase 58 U/L (40-130); Blood Urea Nitrogen 26 mg/dL (8-23); Carbon Dioxide 20 mmol/L (22-29); Chloride 101 mmol/L (98-107); Globulin 2.5 g/dL (1.3-4.6); Glomerular Filtration Rate 16.5 mL/min (90-130); Glucose 153 mg/dL (65-115); Magnesium 2.4 mg/dL (1.7-2.3); Osmolality Calculated 288 mOsm/kg (285-295); Sodium 135 mmol/L (136-145); Total Bilirubin 0.6 mg/dL (0.15-1.2)
[2022-08-27 04:23] LABS: Anion Gap 18.2 (5-19); Aspartate Amino Transferase 55 U/L (0-40); Potassium 4.2 mmol/L (3.5-5.1)
[2022-08-27] MEDS: piperacillin-tazobactam 3.375 GM in sodium chloride 0.9% (plus) 50 ML IV ×3 (04:45→19:50)
[2022-08-27] MEDS: levofloxacin-dextrose 5 % 750 MG/150 ML PREMIX 100 MG IV (06:14)
[2022-08-27] MEDS: enoxaparin 40 mg/0.4 mL Syringe SUBCUT (06:35)
[2022-08-27 07:51] LABS: Glucose Point of Care 148 mg/dL (70-110)
[2022-08-27] MEDS: insulin lispro 100 unit/1 mL SUBCUT ×2 (07:54→21:11)
[2022-08-27] MEDS: docusate sodium 100 mg Capsule PO ×2 (07:55→17:36)
[2022-08-27] MEDS: pantoprazole 40 mg SDV IVP (07:55)
--- NOTE | 2022-08-27 08:27 | PM.PN ---
Subjective Subjective: patient had fever overnight, noted Tamx of 101.3, blood pressure has been slightly soft, though he has maintained a decent MAP, serum creatinine is trending up, though the urine output has been adequate, possibly serum creatinine will be peaking, ABG and x-ray chest this morning was reviewed, patient was successfully extubated. Postextubation he has done well.Blood cultures so far has remained negative. Sputum Gram stain and culture: Rare GPC in pairs. Medications: Medication Review Details: Generic Name Dose Route Start Last Admin Trade Name Thaddeusq PRN Reason Stop Dose Admin Docusate Sodium 100 mg 08/26/22 09:00 08/27/22 07:55 Docusate Sodium 100 Mg Capsule PO 100 mg BID LIZZETTE Administration Enoxaparin Sodium 40 mg 08/26/22 07:30 08/27/22 06:35 Enoxaparin 40 Mg /0.4 Ml Syringe SUBCUT 40 mg Q24H LIZZETTE Administration Propofol 1,000 mg in 100 m ls @ 0 mls/hr 08/26/22 01:00 08/27/22 04:44 Diprivan IV 50 mcg/kg/min .Q0M LIZZETTE 27.22 mls/hr Administration Protocol Per Protocol Fentanyl 2,500 mcg / Sodium 250 mls @ 0 mls/h r 08/26/22 01:00 08/26/22 02:42 Chloride IV 50 mcg/hr .Q0M LIZZETTE 5 mls/hr Titration Protocol Per Protocol Diltiazem HCl 100 mg/ Sodium 100 mls @ 0 mls/h r 08/26/22 01:15 08/26/22 03:28 Chloride IV 0 mg/hr .Q0M LIZZETTE 0 mls/hr Titration Protocol Per Protocol Levofloxacin/Dextr ose 750 mg in 150 mls @ 100 mls/hr 08/26/22 07:15 08/27/22 06:14 Levaquin-D5w IV 100 mls/hr Q24H LIZZETTE Administration Protocol Piperacillin Sod/T azobactam 50 mls @ 12.5 mls /hr 08/26/22 12:00 08/27/22 04:45 Sod 3.375 gm/ So dium Chloride IV 12.5 mls/hr Q8H LIZZETTE Administration Protocol Insulin Human Lisp ro 0 unit 08/26/22 21:00 08/26/22 22:48 Insulin Lispro 1 00 Unit/1 Ml SUBCUT Not Given BEDTIME LIZZETTE Protocol Insulin Human Lisp ro 0 unit 08/26/22 08:00 08/27/22 07:54 Insulin Lispro 1 00 Unit/1 Ml SUBCUT 2 unit TIDWM [facility] Administration Protocol Pantoprazole Sodiu m 40 mg 08/26/22 09:00 08/27/22 07:55 Pantoprazole 40 Mg Sdv IVP 40 mg DAILY LIZZETTE Administration Vitals/I&O/Wt Last Vital Signs Temp 99.0 F 08/27/22 06:00 Pulse 83 08/27/22 06:15 Resp 20 H 08/27/22 07:36 BP 99/72 08/27/22 06:15 Pulse Ox 96 08/27/22 07:36 O2 Del Method 08/27/22 06:00 FiO2 35 08/27/22 07:36 08/26/22 08/27/22 08/27/22 22:59 06:59 14:59 Intake Total 1298.333 / 1389.747 187.655 / 1577.402 Output Total 900 / 900 250 / 1150 Balance 398.333 / 489.747 -62.345 / 427.402 Weight last 48 hrs Weight 90.718 kg Weight 90.718 kg Physical Exam Narrative: Intubated sedated on mechanical ventilation, HENMT: COMMON NORMALS: normocephalic and atraumatic HEAD & SCALP: normocephalic and atraumatic Resp: COMMON NORMALS: clear to auscultation bilaterally AUSCULTATION: clear to auscultation bilaterally Cardio: COMMON NORMALS: regular rate, regular rhythm, S1 normal heart sound present, S2 normal heart sound present, No gallops present (Cardio), No murmurs present (Cardio), No rub (Cardio) and Peripheral pulses 2+ throughout RATE: regular rate RHYTHM: regular rhythm HEART SOUNDS: S1 normal heart sound present and S2 normal heart sound present PERIPHERAL PULSES: Peripheral pulses 2+ throughout GI: COMMON NORMALS: Normal to inspection, nondistended, normoactive bowel sounds present, Soft to palpation, non-tender, No hepatosplenomegaly present and no masses AUSCULTATION: Yes normoactive bowel sounds PALPATION: Yes Soft to palpation and Yes No hepatosplenomegaly present RECTAL EXAM: Yes deferred Extremity: COMMON NORMALS: no clubbing, cyanosis or edema and no pedal edema Urinary Catheter Management: Shirley: Cath Placed During This Visit: yes Reason for Continuing Indwelling Catheter: Accurate Measurement of Urinary Output in Critically Ill Patients Urinary Catheter Date of Insertion: 08/26/22 Urinary Catheter Time of Insertion: 00:57 Data 08/26/22 00:55 08/27/22 03:09 Micro: Microbiology 08/26/22 11:40 Gram Stain - Final Sputum - Endotracheal Tube Aspirate 08/26/22 08:55 Blood Culture - Preliminary Blood SPECIMEN COLLECTED 08/26/22 08:40 Blood Culture - Preliminary Blood SPECIMEN COLLECTED A&P Assessment and plan (1) Syncope: Associated with loss of consciousness. Specific etiology of event is unclear. Differential includes acute GA, CVA, thrombotic event, arrhythmia, medication effect, seizure, accidental trauma, among others. (2) Acute respiratory failure with hypoxia and hypercapnia: When specifically asked patient does have a history of sleep apnea as he has a CPAP machine at home though he does not use it. No other known respiratory disease. He was hypoxic and hypercapnic at presentation necessitating intubation. (3) Atrial fibrillation with rapid ventricular response: No prior history of atrial fibrillation, has since converted to sinus rhythm, may be secondary to acute events (4) Acidosis, lactic: Could be secondary to hypoxemia, does have leukocytosis and was initially tachycardic but has maintained blood pressures. Chest x-ray with some hazy opacities but no recent respiratory symptoms. (5) Acute kidney injury: PERCY on CKD: Possibly secondary to relative hypotension precipitated by sepsis. Patient is also chronically on meloxicam. Baseline serum creatinine is unknown Admission serum creatinine was 2.1 Follow renal ultrasound Monitor intake output charting Avoid nephrotoxic's (6) Hyperglycemia: Without a known history of diabetes (7) PTSD (post-traumatic stress disorder): On chronic sertraline and as needed hydralazine (8) Restless legs syndrome (RLS): On chronic tizanidine (9) Osteoarthritis: On chronic meloxicam (10) NSTEMI (non-ST elevated myocardial infarction): Likely NSTEMI type II: In the setting of A-fib with RVR and sepsis Troponin trend: 2D echo: Normal LV size and systolic function with LVEF of 72%, no RWMA, mild LVH, grade 1 diastolic dysfunction. Cardiology on board (11) Sepsis: Patient meets sepsis criteria: Has elevated white cell count , elevated lactic acid, fever, hypotension, Endorgan dysfunction in the form of PERCY. Patient has received IV fluid bolus, to which he has responded appropriately. Follow blood culture Urine culture Sputum Gram stain and culture Currently empirically covered with broad-spectrum antibiotics Plan Polycythemia, baseline hemoglobin unknown, has potential secondary etiologies based on available history Elevated TSH Inpatient admission Telemetry monitoring Continue serial cardiac enzymes Echocardiogram and carotid ultrasound Cardiology consultation, discussed with Dr. Ambrose Diltiazem drip as needed for rate control, weaning as able Continue ventilatory support currently Propofol and fentanyl for sedation Serial neuro exams Continue IV fluids Blood cultures Empiric antibiotics Sliding scale insulin Check hemoglobin A1c Check lipid panel Shirley catheter for close monitoring of urine output Hold home medications currently Recheck hemoglobin after fluids Check free T3 and free T4 See if we can get records from [place] in particular previous labs PPI for GI prophylaxis Subcu heparin for DVT prophylaxis Supportive care otherwise Reviewed current status, findings, concerns and plans with patient's and gave her an opportunity to ask questions. Explained that we are not sure what the primary event was at this time but that we would evaluate from cardiac, pulmonary, vascular and neurological standpoint as outlined above and monitor how he responds to treatment. Also discussed empiric coverage for possibility of infection. She is agreeable with plan of care at this time and hopeful that her will recover. Full code Attestations Medical Necessity Statement*: Needs to be in hospital for management of sepsis. Time Spent in Patient Care: Greater than 35 minutes Critical Care Time: The high probability of a clinically significant, sudden or life threatening deterioration of the patient's [] system(s) required my full and direct attention, intervention and personal management. The critical care time is as shown. This time is in addition to time spent performing any reported procedures but includes the following: [x] Data and vital sign review and interpretation [x] Patient assessment, examination and intervention [x] Documentation [x] Medication orders and management Critical Care Time (min): 45 Coding Level of Care Code Critical Care >/= 30 minutes Diagnoses Syncope R55 Acute respiratory failure with hypoxia and hypercapnia J96.01; J96.02 Atrial fibrillation with rapid ventricular response I48.91 Acidosis, lactic E87.20 Acute kidney injury N17.9 Hyperglycemia R73.9 PTSD (post-traumatic stress disorder) F43.10 Restless legs syndrome (RLS) G25.81 Osteoarthritis M19.90 NSTEMI (non-ST elevated myocardial infarction) I21.4 Sepsis A41.9
--- NOTE | 2022-08-27 09:22 | XR_ITS ---
WS: [id number] Exam: XR chest 1V portable [id number] Date/Time of Exam: 08/27/2022 9:22 AM Reason For Exam: daily for intubated patient Comparison 08/26/2022. The lungs are clear and fully expanded. Normal cardiomediastinal silhouette for technique. An ET tube is in good position about 5 cm above the feliz. An enteric tube extends into the stomach. Bony stru ctures are intact. XR/XR chest 1V portable [id number] IMPRESSION: 1. No acute cardiopulmonary finding. 2. ET tube and NG tube both in satisfactory position.
[2022-08-27 09:43] LABS: Basophils % 0.3 %; Eosinophils # 0.1 10^3/uL (0.0-0.8); Eosinophils % 0.6 %; Hemoglobin 15.6 g/dL (11.7-16.6); Lymphocytes # 1.4 10^3/uL (0.8-4.8); Lymphocytes % 14.2 %; Mean Corpuscular HGB Conc 35.5 g/dL (30.0-36.0); Mean Corpuscular Hemoglobin 31.4 pg (28.0-34.0); Mean Corpuscular Volume 88.5 fl (80-94); Mean Platelet Volume 9.7 fL (7.4-10.4); Monocytes # 1.2 10^3/uL (0.2-0.9); Monocytes % 12.2 %; Neutrophils # 7.29 10^3/uL (1.8-7.7); Neutrophils % 72.4 %; Nucleated Red Blood Cells % 0 %; Platelet Count 125 10^3/cmm (130-400); Red Blood Count 4.97 10^6/uL (4.1-5.3); Red Cell Distribution Width 12.6 % (12.1-15.1); White Blood Count 10.1 10^3/uL (4.0-10.0)
[2022-08-27 11:03] LABS: Glucose Point of Care 98 mg/dL (70-110)
--- NOTE | 2022-08-27 13:00 | US_ITS ---
WS: [id number] RENAL ULTRASOUND HISTORY: PERCY COMPARISON: None available. TECHNIQUE: 2-D and color Doppler imaging of the kidney submitted. Right kidney: 12.4 cm x 6.0 cm x 6.3 cm. Cortex: 1.3 cm Normal size kidney with cortical thinning. Simple cyst mid kidney with a maximum diameter of 1.6 cm. In the central kidney and a slight interruption of the renal sinus fat. This is only seen on a couple images. Left kidney: 11.8 cm x 5.0 cm x 5.7 cm. Cortex: 1.7 cm Normal echogenicity with no hydronephrosis or mass. Aorta: Normal. Urinary Bladder: Shirley catheter, nondistended. US/US renal BI* [id number] IMPRESSION: 1. No hydronephrosis or cortical thinning. No renal atrophy. 2. Interruption of the normal sinus fat in the RIGHT kidney. This may be trudy l for this patient but should be further evaluated by CT. CT is pending. Differ ential would include abscess, mass or pyelonephritis.
[2022-08-27] MEDS: sodium chloride 0.9% 500 ML IV (14:03)
[2022-08-27 16:42] LABS: Glucose Point of Care 122 mg/dL (70-110)
--- NOTE | 2022-08-27 17:15 | PC.NURSE ---
Patient extubated to NC per RT, Dr. Diaz at bedside, follows commands and answers appropriately
[2022-08-27] MEDS: linezolid premix 600 MG/300 ML PREMIX 300 MG IV (19:50)
[2022-08-27] MEDS: acetaminophen 325 mg Tablet 650 MG PO (19:51)
[2022-08-27 20:27] LABS: Glucose Point of Care 158 mg/dL (70-110)
--- NOTE | 2022-08-27 23:39 | PM.PN ---
Subjective Subjective: Remains intubated. Vitals are stable. Afebrile. Patient has a significant delta at 6-hour. Currently he is sedated. Medications: Medication Review Details: Current Medications Acetaminophen (Acetaminophen 325 Mg Tablet) 650 mg PO Q6H PRN PRN Reason: MILD PAIN Last Admin: 08/27/22 19:51 Dose: 650 mg Acetaminophen (Acetaminophen 650 Mg/20.3 Ml Udc) 1,000 mg PO ONCE ONE Stop: 08/27/22 23:46 Albuterol/Ipratropium (Ipratropium-Albuterol 3 Ml Neb) 3 ml INHALATION Q6H PRN PRN Reason: SHORTNESS OF BREATH Dextrose (Dextrose 50% Syringe 50 Ml) 25 ml IVP ONCE PRN; Protocol PRN Reason: hypoglycemia protocol Dextrose (Dextrose 50% Syringe 50 Ml) 50 ml IVP PRN PRN; Protocol PRN Reason: hypoglycemia protocol Docusate Sodium (Docusate Sodium 100 Mg Capsule) 100 mg PO BID LIZZETTE Last Admin: 08/27/22 17:36 Dose: 100 mg Enoxaparin Sodium (Enoxaparin 30 Mg/0.3 Ml Syringe) 30 mg SUBCUT Q24H LIZZETTE Glucagon (Glucagon 1 Mg/Ml Inj 1 Ml) 1 mg IM ONCE PRN; Protocol PRN Reason: Adult Acute Hypoglycemia Prot. Fentanyl 2,500 mcg/ Sodium (Chloride) 250 mls @ 0 mls/hr IV .Q0M LIZZETTE; Protocol Last Titration: 08/26/22 02:42 Dose: 50 mcg/hr, 5 mls/hr Piperacillin Sod/Tazobactam (Sod 3.375 gm/ Sodium Chloride) 50 mls @ 12.5 mls/hr IV Q8H LIZZETTE; Protocol Last Admin: 08/27/22 19:50 Dose: 12.5 mls/hr Dextrose (D5w) 500 mls @ 100 mls/hr IV ONCE PRN; Protocol PRN Reason: Adult Acute Hypoglycemia Prot Levofloxacin/Dextrose (Levaquin-D5w) 750 mg in 150 mls @ 100 mls/hr IV Q48H LIZZETTE; Protocol Linezolid (Zyvox Premix) 600 mg in 300 mls @ 300 mls/hr IV Q12H LIZZETTE; Protocol Last Admin: 08/27/22 19:50 Dose: 300 mls/hr Sodium Chloride (Sodium Chloride 0.9%) 1,000 mls @ 100 mls/hr IV .Q10H LIZZETTE Stop: 08/28/22 09:29 Insulin Human Lispro (Insulin Lispro 100 Unit/1 Ml) 0 unit SUBCUT BEDTIME LIZZETTE; Protocol Last Admin: 08/27/22 21:11 Dose: 1 unit Insulin Human Lispro (Insulin Lispro 100 Unit/1 Ml) 0 unit SUBCUT TIDWM LIZZETTE; Protocol Last Admin: 08/27/22 17:16 Dose: Not Given Ondansetron HCl (Ondansetron 2 Mg/Ml Sdv 2 Ml) 4 mg IVP Q6H PRN PRN Reason: NAUSEA AND VOMITING Pantoprazole Sodium (Pantoprazole 40 Mg Sdv) 40 mg IVP DAILY [facility] Last Admin: 08/27/22 07:55 Dose: 40 mg Vitals/I&O/Wt Last Vital Signs Temp 100.3 F H 08/27/22 20:00 Pulse 113 H 08/27/22 22:00 Resp 15 08/27/22 22:00 BP 155/92 08/27/22 22:00 Pulse Ox 96 08/27/22 22:00 O2 Del Method 08/27/22 20:22 O2 Flow Rate 2 08/27/22 20:22 FiO2 30 08/27/22 14:21 08/27/22 08/27/22 08/28/22 14:59 22:59 06:59 Intake Total 250 / 250 50 / 300 Output Total 500 / 500 Balance 250 / 250 -450 / -200 Weight last 48 hrs Weight 200 lb Weight 200 lb Physical Exam Narrative: GENERAL: The patient is intubated and sedated. HEENT: No significant pallor, icterus or lymphadenopathy.Oral cavity: There are no mucous membrane lesions. NECK: Trachea appears to be central. No masses noted. No JVD or thyromegaly appreciated. RESPIRATORY: Chest is symmetrical. No intercostals muscle retraction or any accessory muscle activation. There is no chest wall tenderness. Breath sounds are heard bilaterally. No rales or rhonchi heard. No evidence of any consolidation. BREASTS: Deferred. HEART: The heart sounds are normal. No S3 or S4. No significant murmurs. No pericardial rub ABDOMEN: No vessel pulsations or distention. No tenderness. No organomegaly appreciated. Bowel sounds are normally heard. : Deferred. RECTAL: Deferred. LYMPHATIC: No lymphadenopathy noted in the neck. EXTREMITIES: No edema or cyanosis. No clubbing. MUSCULOSKELETAL: No acute joint deformities or swelling SKIN: There are no significant rashes or ecchymosis NEUROPSYCHIATRIC: Patient is intubated and sedated. Seems to be moving all extremities. Urinary Catheter Management: Shirley: Cath Placed During This Visit: yes Reason for Continuing Indwelling Catheter: Accurate Measurement of Urinary Output in Critically Ill Patients Urinary Catheter Date of Insertion: 08/26/22 Urinary Catheter Time of Insertion: 00:57 Data 08/27/22 09:27 08/27/22 03:09 Other Labs: Laboratory Last Values WBC 10.1 10^3/uL (4.0-10.0) H 08/27/22 09:27 Corrected WBC Cancelled 08/27/22 03:09 RBC 4.97 10^6/uL (4.1-5.3) 08/27/22 09:27 Hgb 15.6 g/dL (11.7-16.6) 08/27/22 09:27 Hct 44.0 % (42.0-52.0) 08/27/22 09:27 MCV 88.5 fl (80-94) 08/27/22 09:27 MCH 31.4 pg (28.0-34.0) 08/27/22 09: MCHC 35.5 g/dL (30.0-36.0) 08/27/22 09:27 RDW 12.6 % (12.1-15.1) 08/27/22 09:27 Plt Count 125 10^3/cmm (130-400) L 08/27/22 09:27 MPV 9.7 fL (7.4-10.4) 08/27/22 09:27 Gran % Cancelled 08/27/22 03:09 Neut % (Auto) 72.4 % 08/27/22 09:27 Lymph % (Auto) 14.2 % 08/27/22 09:27 [place] % (Auto) 12.2 % 08/27/22 09:27 Eos % (Auto) 0.6 % 08/27/22 09:27 Baso % (Auto) 0.3 % 08/27/22 09:27 Neut # (Auto) 7.29 10^3/uL (1.8-7.7) 08/27/22 09:27 Lymph # (Auto) 1.4 10^3/uL (0.8-4.8) 08/27/22 09:27 [place] # (Auto) 1.2 10^3/uL (0.2-0.9) H 08/27/22 09:27 Eos # (Auto) 0.1 10^3/uL (0.0-0.8) 08/27/22 09:27 Baso # (Auto) 0.0 10^3/uL (0.0-0.1) 08/27/22 09:27 Absolute Gran (auto) Cancelled 08/27/22 03:09 Nucleated RBC % (auto) 0 % 08/27/22 09: Nucleated RBCs # 0.0 /100WBC 08/27/22 09:27 PT 16.20 SECONDS (12.1-14.9) H 08/26/22 00:55 INR 1.26 (0.8-1.2) H 08/26/22 00:55 APTT 27.5 SECONDS (23.9-36.7) 08/26/22 00:55 D-Dimer 0.62 ug/mIFEU (0-0.59) H 08/26/22 00:55 Specimen Type Arterial 08/27/22 04:00 Sample Site Radial, right 08/27/22 04:00 ABG pH 7.34 (7.35-7.45) L 08/27/22 04:00 ABG pCO2 39.6 mmHg (35-45) 08/27/22 04:00 ABG pO2 92.4 mmHg (80.0-100.0) 08/27/22 04:00 ABG HCO3 21.1 mmol/L (22-26) L 08/27/22 04:00 ABG O2 Saturation 98.4 08/27/22 04:00 ABG Base Excess -4.4 mmol/L (-2.0-2.0) L 08/27/22 04:00 Luis Fernando Test Pos 08/27/22 04:00 A-a O2 Gradient 18.8 mmHg (5-10) H 08/27/22 04:00 Hematocrit 50.4 % (42-52) 08/27/22 04:00 Hgb O2 Saturation 96.5 % (95-100) 08/27/22 04:00 Carboxyhemoglobin 1.2 %THgb (0.4-20.1) 08/27/22 04:00 Methemoglobin 0.7 % (0.4-1.5) 08/27/22 04:00 Total Hemoglobin 16.4 g/dL (14-18) 08/27/22 04:00 Sodium 135.0 mmol/L (131-143) 08/27/22 04:00 Potassium 4.1 mmol/L (3.5-5.0) 08/27/22 04:00 Glucose 166.0 mg/dL (70-115) H 08/27/22 04:00 Ionized Calcium 1.2 mmol/L (1.1-1.4) 08/27/22 04:00 O2 Delivery Device Vent 08/27/22 04:00 FiO2 40.0 % 08/27/22 04:00 Tidal Volume 0.45 08/27/22 04:00 PEEP 8.0 cmH20 08/27/22 04:00 Engineering Inspector ID [email or web address] 08/27/22 04:00 Sodium 135 mmol/L (136-145) L 08/27/22 03:09 Potassium 4.2 mmol/L (3.5-5.1) 08/27/22 03:09 Chloride 101 mmol/L (98-107) 08/27/22 03:09 Carbon Dioxide 20 mmol/L (22-29) L 08/27/22 03:09 Anion Gap 18.2 (5-19) 08/27/22 03:09 BUN 26 mg/dL (8-23) H 08/27/22 03:09 Creatinine 3.7 mg/dL (0.7-1.2) H 08/27/22 03:09 GFR Calculation 16.5 mL/min (90-130) L 08/27/22 03:09 Glucose 153 mg/dL (65-115) H 08/27/22 03:09 POC Glucose 158 mg/dL (70-110) H 08/27/22 20:24 Estimat Average Glucose 146 08/26/22 07:41 Hemoglobin A1c 6.7 % (4.0-6.0) H 08/26/22 07:41 Calculated Osmolality 288 mOsm/kg (285-295) 08/27/22 03:09 Lactate 2.7 mmol/L (0.5-2.2) H 08/26/22 07:41 Calcium 8.0 mg/dL (8.5-10.5) L 08/27/22 03:09 Magnesium 2.4 mg/dL (1.7-2.3) H 08/27/22 03:09 Total Bilirubin 0.6 mg/dL (0.15-1.2) 08/27/22 03:09 AST 55 U/L (0-40) H 08/27/22 03:09 ALT 14 U/L (0-41) 08/27/22 03:09 Alkaline Phosphatase 58 U/L (40-130) 08/27/22 03:09 Troponin T Baseline 14 ng/L (0-15) 08/26/22 00:55 Troponin T 120 Minute 27.62 ng/L (0-15) H 08/26/22 05:05 Delta Troponin T 13.62 ABS# (0-10) H* 08/26/22 05:05 Troponin T Hi Sens 6Hr 34.65 ng/L (0-15) H 08/26/22 07:01 Troponin T Hi Sens 6Hr Delta 20.65 ng/L (0-12) H* 08/26/22 07:01 NT-Pro-B Natriuret Pep 105 pg/mL (0-125) 08/26/22 00:55 Total Protein 6.0 g/dL (6.6-8.7) L 08/27/22 03:09 Albumin 3.5 g/dL (3.5-5.2) 08/27/22 03:09 Globulin 2.5 g/dL (1.3-4.6) 08/27/22 03:09 Triglycerides 265 mg/dL (0-150) H 08/26/22 07:41 Cholesterol 185 mg/dL (0-200) 08/26/22 07:41 LDL Cholesterol, Calc 99 mg/dL (50-129) 08/26/22 07:41 HDL Cholesterol 33 mg/dL (60-100) L 08/26/22 07:41 LDL/HDL Ratio 3.00 RATIO (0.00-3.22) 08/26/22 07:41 Cholesterol/HDL Ratio 5.61 mg/dL (1.0-5.00) H 08/26/22 07:41 TSH 9.22 uIU/mL (0.27-4.20) H 08/26/22 00:55 Free T4 0.98 ng/dL (0.82-1.77) 08/26/22 07:41 Free T3 3.2 PG/ML (2.0-4.4) 08/26/22 07:41 Urine Color Yellow (Yellow) 08/26/22 00:58 Urine Appearance Clear (CLEAR) 08/26/22 00:58 Urine pH 5 (5-7) 08/26/22 00:58 Ur Specific [place] 1.020 (1.005-1.030) 08/26/22 00:58 Urine Protein 1+ (Negative) H 08/26/22 00:58 Urine Glucose (UA) Norm (Normal) 08/26/22 00:58 Urine Ketones 1+ (Negative) H 08/26/22 00:58 Urine Blood 3+ (Negative) H 08/26/22 00:58 Urine Nitrate Negative (Negative) 08/26/22 00:58 Urine Bilirubin Neg (Negative) 08/26/22 00:58 Urine Urobilinogen Neg mg/dL (Negative) 08/26/22 00:58 Ur Leukocyte Esterase Negative (Negative) 08/26/22 00:58 Urine RBC 0-4 /hpf (0-2) H 08/26/22 00:58 Urine WBC 0-4 /hpf (0-5) H 08/26/22 00:58 Ur Squamous Epith Cells 0-4 /hpf (0-5) H 08/26/22 00:58 Amorphous Sediment Not Reportable 08/26/22 00:58 Urine Bacteria None /hpf (NONE) 08/26/22 00:58 Urine Opiates Screen Negative ng/mL (Negative) 08/26/22 00:58 Ur Barbiturates Screen Negative ng/mL (Negative) 08/26/22 00:58 Ur Phencyclidine Scrn Negative ng/mL (Negative) 08/26/22 00:58 Ur Amphetamines Screen Negative ng/mL (Negative) 08/26/22 00:58 U Benzodiazepines Scrn Negative ng/mL (Negative) 08/26/22 00:58 Urine Cocaine Screen Negative ng/mL (Negative) 08/26/22 00:58 U Marijuana (THC) Screen Negative ng/mL (Negative) 08/26/22 00:58 Ethyl Alcohol < 10 mg/dL (0-10) 08/26/22 00:55 Micro: Microbiology 08/26/22 11:40 Gram Stain - Final Sputum - Endotracheal Tube Aspirate Sputum Culture - Preliminary 08/26/22 08:55 Blood Culture - Preliminary Blood NEGATIVE TO DATE 08/26/22 08:40 Blood Culture - Preliminary Blood NEGATIVE TO DATE Other data: Echocardiogram done on 08/26/2022 ?normal left ventricular size and systolic function, EF 72 %. No?regional wall motion abnormalities. Mild left ventricular?hypertrophy. Grade I/IV diastolic dysfunction (abnormal?relaxation filling pattern), normal to mildly elevated filling?pressures.?Thickened aortic valve. Trace aortic valve regurgitation.?Trace to mild tricuspid valve regurgitation.? Estimated?pulmonary artery peak systolic pressure 26 mmHg.?There is no pericardial effusion. ?No similar previous studies are available for comparison A&P Assessment and plan (1) Syncope: Apparently had some seizure-like activities, noticed by his . Cardiac etiology cannot be excluded. Patient need to be closely monitored. In view of his family history, underlying coronary artery disease is a consideration. This may need to be further evaluated. (2) Atrial fibrillation with rapid ventricular response: Patient is currently back into sinus rhythm. No acute ischemic changes in the EKG. It may be appropriate to keep him on the anticoagulation. (3) Acute respiratory failure with hypoxia and hypercapnia: Sleep apnea could be a contributing factor. No evidence of heart failure at this point. A primary pulmonary pathology also need to be looked into. (4) Cardiomegaly: The echo revealed normal LV size ejection fraction. No significant wall motion normalities. The x-ray evidence of cardiomegaly most likely due to technical issues. (5) Elevated troponin: Most likely a type II CO from atrial fibrillation/respiratory distress. Need to rule out underlying coronary ischemia. (6) Elevated blood pressure reading: May continue on the current medications. (7) Acute kidney injury: This could be multifactorial. This needs to be closely monitored Plan Other problems are Mild leukocytosis Mild hypokalemia Hyperglycemia Consult being a Myocardial perfusion imaging, once he is extubated and medically stable. Attestations Medical Necessity Statement*: Patient requires continued hospital stay for close monitoring and further management Coding Level of Care Code 07802 Diagnoses Syncope R55 Atrial fibrillation with rapid ventricular response I48.91 Acute respiratory failure with hypoxia and hypercapnia J96.01; J96.02 Cardiomegaly I51.7 Elevated troponin R77.8 Elevated blood pressure reading R03.0 Acute kidney injury N17.9
[2022-08-27] MEDS: sodium chloride 0.9% 1,000 ML 100 ML IV (23:56)
[2022-08-27] MEDS: acetaminophen 650 mg/20.3 mL UDC 1000 MG PO (23:58)
[2022-08-28] VITALS (53 sets, daily range): BP systolic 116–162; BP diastolic 83–118; PULSE 58–125; RESP 11–30; TEMP 36.7–37.6; O2SAT 91–96
--- NOTE | 2022-08-28 00:14 | PC.NURSE ---
Fentanyl (2500mcg/250mls): 20mls wasted. Witnessed by JIMBO Huerta
[2022-08-28] MEDS: heparin 5,000 unit/mL INJ 1 mL IV (01:22)
[2022-08-28] MEDS: heparin drip 25,000 UNIT/500 ML PREMIX 25.4 UNIT IV (01:23)
[2022-08-28 03:36] LABS: Basophils % 0.2 %; Hematocrit 41.7 % (42.0-52.0); Hemoglobin 14.7 g/dL (11.7-16.6); Lymphocytes # 0.7 10^3/uL (0.8-4.8); Lymphocytes % 5.3 %; Mean Corpuscular HGB Conc 35.3 g/dL (30.0-36.0); Mean Corpuscular Hemoglobin 30.9 pg (28.0-34.0); Mean Corpuscular Volume 87.8 fl (80-94); Mean Platelet Volume 10.5 fL (7.4-10.4); Monocytes # 1.1 10^3/uL (0.2-0.9); Monocytes % 7.9 %; Neutrophils # 11.93 10^3/uL (1.8-7.7); Neutrophils % 85.8 %; Nucleated Red Blood Cells % 0 %; Platelet Count 122 10^3/cmm (130-400); Red Blood Count 4.75 10^6/uL (4.1-5.3); Red Cell Distribution Width 12.1 % (12.1-15.1); White Blood Count 13.9 10^3/uL (4.0-10.0)
[2022-08-28 03:52] LABS: ABG PH Result 7.36 (7.35-7.45); Alveolar-Arterial Oxygen Gradi 4.7 mmHg (5-10); Arterial Blood Gas Hematocrit 45.2 % (42-52); Base Excess ABG -5.5 mmol/L (-2.0-2.0); Blood Gas Allen Test Pos; Blood Gas Sample Site Radial, right; Blood Gas Sample Type Arterial; Carboxyhemoglobin 1.7 %THgb (0.4-20.1); HCO3 ABG 19.1 mmol/L (22-26); HGB O2 Sat 94.4 % (95-100); Ionized Calcium Level - ABG 1.1 mmol/L (1.1-1.4); Methemoglobin 0.2 % (0.4-1.5); Oxygen Saturation ABG 96.2; PO2 ABG 72.1 mmHg (80.0-100.0); Total Hemoglobin 14.8 g/dL (14-18)
[2022-08-28 03:59] LABS: Alanine Aminotransferase 21 U/L (0-41); Albumin Level 3.1 g/dL (3.5-5.2); Alkaline Phosphatase 62 U/L (40-130); Aspartate Amino Transferase 77 U/L (0-40); Blood Urea Nitrogen 38 mg/dL (8-23); Calcium 8.1 mg/dL (8.5-10.5); Carbon Dioxide 16 mmol/L (22-29); Chloride 102 mmol/L (98-107); Globulin 2.9 g/dL (1.3-4.6); Glomerular Filtration Rate 9.6 mL/min (90-130); Glucose 179 mg/dL (65-115); Magnesium 2.3 mg/dL (1.7-2.3); Osmolality Calculated 296 mOsm/kg (285-295); Sodium 136 mmol/L (136-145); Total Bilirubin 1.1 mg/dL (0.15-1.2)
[2022-08-28 04:27] LABS: Anion Gap 22.2 (5-19); Potassium 4.2 mmol/L (3.5-5.1)
[2022-08-28 04:29] LABS: Creatine Phosphokinase 4597 U/L (39-308)
[2022-08-28 04:57] LABS: CKMB 9.9 ng/mL (0-10.4)
[2022-08-28] MEDS: piperacillin-tazobactam 3.375 GM in sodium chloride 0.9% (plus) 50 ML IV ×2 (04:59→16:58)
[2022-08-28 07:22] LABS: Glucose Point of Care 162 mg/dL (70-110)
--- NOTE | 2022-08-28 08:04 | CTR_ITS ---
PROCEDURE INFORMATION: Exam: CT Chest Without Contrast; Diagnostic Exam date and time: 08/28/2022 4:28 PM Age: 67 years old Clinical indication: Fever; Additional info: Fever, sepsis, source search TECHNIQUE: Imaging protocol: Diagnostic computed tomography of the chest without contrast. Radiation optimization: All CT scans at this facility use at least one of these dose optimization techniques: automated exposure control; mA and/or kV adjustment per patient size (includes targeted exams where dose is matched to clinical indication); or iterative reconstruction. REPORTING DATA: Count of CT and Cardiac NM exams in prior 12 months: This patient has received 2 known CTs and 0 known cardiac nuclear medicine studies in the 12 months prior to the current study. COMPARISON: CR XR chest 1V portable [id number] 08/27/2022 8:32 AM RADIATION DOSE METRICS: Total DLP (mGy-cm): 1099.28 FINDINGS: Lungs: Minor curvilinear scarring or atelectasis at the lung bases. No consolidation. No masses. Pleural spaces: Unremarkable. No pneumothorax. No pleural effusion. Heart: Unremarkable. No cardiomegaly. No pericardial effusion. Lymph nodes: Unremarkable. No enlarged lymph nodes. Vasculature: Unremarkable. No aortic aneurysm. Bones/joints: No acute fracture. Prominent Schmorl's nodes noted within the lower thoracic spine. Soft tissues: Unremarkable. PROCEDURE INFORMATION: Exam: CT Abdomen And Pelvis Without Contrast Exam date and time: 08/28/2022 4:28 PM Age: 67 years old Clinical indication: Fever; Additional info: Fever, sepsis, source search TECHNIQUE: Imaging protocol: Computed tomography of the abdomen and pelvis without contrast. Radiation optimization: All CT scans at this facility use at least one of these dose optimization techniques: automated exposure control; mA and/or kV adjustment per patient size (includes targeted exams where dose is matched to clinical indication); or iterative reconstruction. REPORTING DATA: Count of CT and Cardiac NM exams in prior 12 months: This patient has received 2 known CTs and 0 known cardiac nuclear medicine studies in the 12 months prior to the current study. COMPARISON: US renal BI* [id number] 08/27/2022 4:03 PM RADIATION DOSE METRICS: Total DLP (mGy-cm): 1099.28 FINDINGS: Liver: Normal. No mass. Gallbladder and bile ducts: Normal. No calcified stones. No ductal dilation. Pancreas: Normal. No ductal dilation. Spleen: Normal. No splenomegaly. Adrenal glands: Normal. No mass. Kidneys and ureters: 2 cm cyst noted in the right kidney. There is a 1.2 cm hyperdense lesion in the right kidney most compatible with a hemorrhagic cyst. No renal stones. No hydronephrosis. Stomach and bowel: Colonic diverticulosis. No obstruction. No mucosal thickening. Appendix: No evidence of appendicitis. Intraperitoneal space: Unremarkable. No free air. No significant fluid collection. Vasculature: Unremarkable. No abdominal aortic aneurysm. Lymph nodes: Unremarkable. No enlarged lymph nodes. Urinary bladder: Shirley catheter noted within a decompressed bladder. Reproductive: Unremarkable as visualized. Bones/joints: No acute fracture. There is a prominent Schmorl's node noted at the superior endplate of L1. Soft tissues: Unremarkable. CT/[place] [id number] IMPRESSION: No infectious source identified within the chest. IMPRESSION: No infectious source identified within the abdomen/pelvis. COMMENTS: Consistent with the [employer]'s Incidental Findings Committee white paper (J Am Hamida Radiol 2018): Any incidental renal lesion less than 1 cm or classified as too small to characterize, or any incidental cystic renal lesion characterized as simple-appearing, is likely benign. No follow-up imaging is recommended for these lesions per consensus recommendations based on imaging criteria.
[2022-08-28 08:26] LABS: Lactate (Lactic Acid level) 1.8 mmol/L (0.5-2.2)
[2022-08-28 08:28] LABS: Partial Thromboplastin Time 141.9 SECONDS (23.9-36.7)
[2022-08-28] MEDS: docusate sodium 100 mg Capsule PO (08:35)
[2022-08-28] MEDS: pantoprazole 40 mg SDV IVP (08:35)
[2022-08-28] MEDS: sodium bicarbonate 150 MEQ in dextrose 5% 1,000 ML 100 MEQ IV ×2 (08:35→19:09)
[2022-08-28 09:11] LABS: Glucose Point of Care 144 mg/dL (70-110)
[2022-08-28] MEDS: insulin lispro 100 unit/1 mL SUBCUT ×4 (09:41→21:08)
[2022-08-28] MEDS: vancomycin 1,500 MG/300 ML PIGGYBACK 200 MG IV (09:41)
[2022-08-28] MEDS: metoprolol tartrate 1 mg/1 mL SDV 5 mL 5 MG IVP (09:54)
--- NOTE | 2022-08-28 10:08 | PC.NURSE ---
Afib with elevated HR, Dr. Mccarthy at bedside, gave v.o. for 5 mg metoprolol IVP now, start on 25 mg po bid
--- NOTE | 2022-08-28 11:00 | P.PN_ITS ---
Subjective Subjective: The patient was extubated yesterday. He had a low-grade fever. The source of infection is not identified yet. He is BUN/creatinine also is going up. He had some evidence of rhabdomyolysis. Medications: Medication Review Details: Current Medications Acetaminophen (Acetaminophen 325 Mg Tablet) 650 mg PO Q6H PRN PRN Reason: MILD PAIN Last Admin: 08/27/22 19:51 Dose: 650 mg Albuterol/Ipratropium (Ipratropium-Albuterol 3 Ml Neb) 3 ml INHALATION Q6H PRN PRN Reason: SHORTNESS OF BREATH Dextrose (Dextrose 50% Syringe 50 Ml) 25 ml IVP ONCE PRN; Protocol PRN Reason: hypoglycemia protocol Dextrose (Dextrose 50% Syringe 50 Ml) 50 ml IVP PRN PRN; Protocol PRN Reason: hypoglycemia protocol Docusate Sodium (Docusate Sodium 100 Mg Capsule) 100 mg PO BID [facility] Last Admin: 08/28/22 08:35 Dose: 100 mg Glucagon (Glucagon 1 Mg/Ml Inj 1 Ml) 1 mg IM ONCE PRN; Protocol PRN Reason: Adult Acute Hypoglycemia Prot. Heparin Sodium (Porcine) (Heparin 5,000 Unit/Ml Inj 1 Ml) 0 unit IV PRN PRN; Protocol PRN Reason: Heparin weight-base protocol Last Admin: 08/28/22 01:22 Dose: 4,500 unit Fentanyl 2,500 mcg/ Sodium (Chloride) 250 mls @ 0 mls/hr IV .Q0M LIZZETTE; Protocol Last Titration: 08/26/22 02:42 Dose: 50 mcg/hr, 5 mls/hr Piperacillin Sod/Tazobactam (Sod 3.375 gm/ Sodium Chloride) 50 mls @ 12.5 mls /hr IV Q8H LIZZETTE; Protocol Last Admin: 08/28/22 04:59 Dose: 12.5 mls/hr Dextrose (D5w) 500 mls @ 100 mls/hr IV ONCE PRN; Protocol PRN Reason: Adult Acute Hypoglycemia Prot Levofloxacin/Dextrose (Levaquin-D5w) 750 mg in 150 mls @ 100 mls/hr IV Q48H LIZZETTE; Protocol Sodium Bicarbonate 150 meq/ (Dextrose) 1,150 mls @ 100 mls/hr IV .[id number] LIZZETTE Last Admin: 08/28/22 08:35 Dose: 100 mls/hr Vancomycin/PEG/NADA/Lysine/Water (Vancocin) 1,500 mg in 300 mls @ 200 mls/hr IV Q48H LIZZETTE Last Admin: 08/28/22 09:41 Dose: 200 mls/hr Insulin Human Lispro (Insulin Lispro 100 Unit/1 Ml) 0 unit SUBCUT BEDTIME LIZZETTE; Protocol Last Admin: 08/27/22 21:11 Dose: 1 unit Insulin Human Lispro (Insulin Lispro 100 Unit/1 Ml) 0 unit SUBCUT TIDWM LIZZETTE; Protocol Last Admin: 08/28/22 09:41 Dose: 2 unit Metoprolol Tartrate (Metoprolol Tartrate 25 Mg Tablet) 25 mg PO BID@0900,2100 LIZZETTE Ondansetron HCl (Ondansetron 2 Mg/Ml Sdv 2 Ml) 4 mg IVP Q6H PRN PRN Reason: NAUSEA AND VOMITING Pantoprazole Sodium (Pantoprazole 40 Mg Sdv) 40 mg IVP DAILY [facility] Last Admin: 08/28/22 08:35 Dose: 40 mg Vitals/I&O/Wt Last Vital Signs Temp 98.0 F 08/28/22 06:00 Pulse 111 H 08/28/22 10:00 Resp 18 08/28/22 10:00 BP 162/109 08/28/22 10:00 Pulse Ox 94 08/28/22 10:00 O2 Del Method 08/28/22 06:00 O2 Flow Rate 2 08/27/22 23:30 FiO2 30 08/27/22 14:21 08/27/22 08/28/22 08/28/22 22:59 06:59 14:59 Intake Total 350 / 600 50 / 650 174.837 / 174.837 Output Total 750 / 750 600 / 1350 Balance -400 / -150 -550 / -700 174.837 / 174.837 Weight last 48 hrs Weight 218 lb 4.122 oz Weight 200 lb Physical Exam Narrative: GENERAL: The patient is alert and oriented times three. Not in any acute distress. HEENT: No significant pallor, icterus or lymphadenopathy.Oral cavity: There are no mucous membrane lesions. NECK: Trachea appears to be central. No masses noted. No JVD or thyromegaly appreciated. RESPIRATORY: Chest is symmetrical. No intercostals muscle retraction or any accessory muscle activation. There is no chest wall tenderness. Breath sounds are heard bilaterally. No rales or rhonchi heard. No evidence of any consolidation. BREASTS: Deferred. HEART: The heart sounds are normal. No S3 or S4. No significant murmurs. No pericardial rub ABDOMEN: No vessel pulsations or distention. No tenderness. No organomegaly appreciated. Bowel sounds are normally heard. : Deferred. RECTAL: Deferred. LYMPHATIC: No lymphadenopathy noted in the neck. EXTREMITIES: No edema or cyanosis. No clubbing. MUSCULOSKELETAL: No acute joint deformities or swelling SKIN: There are no significant rashes or ecchymosis NEUROPSYCHIATRIC: The patient is alert and oriented x3. Appears to be in a good mood. No tremors or rigidity noted. Urinary Catheter Management: Shirley: Cath Placed During This Visit: yes Reason for Continuing Indwelling Catheter: Accurate Measurement of Urinary Output in Critically Ill Patients Urinary Catheter Date of Insertion: 08/26/22 Urinary Catheter Time of Insertion: 00:57 Data 08/28/22 02:52 08/28/22 02:52 Other Labs: Laboratory Last Values WBC 13.9 10^3/uL (4.0-10.0) H 08/28/22 02:52 Corrected WBC Cancelled 08/27/22 03:09 RBC 4.75 10^6/uL (4.1-5.3) 08/28/22 02:52 Hgb 14.7 g/dL (11.7-16.6) 08/28/22 02:52 Hct 41.7 % (42.0-52.0) L 08/28/22 02:52 MCV 87.8 fl (80-94) 08/28/22 02:52 MCH 30.9 pg (28.0-34.0) 08/28/22 02:52 MCHC 35.3 g/dL (30.0-36.0) 08/28/22 02:52 RDW 12.1 % (12.1-15.1) 08/28/22 02:52 Plt Count 122 10^3/cmm (130-400) L 08/28/22 02:52 MPV 10.5 fL (7.4-10.4) H 08/28/22 02:52 Gran % Cancelled 08/27/22 03:09 Neut % (Auto) 85.8 % 08/28/22 02:52 Lymph % (Auto) 5.3 % 08/28/22 02:52 [place] % (Auto) 7.9 % 08/28/22 02:52 Eos % (Auto) 0.0 % 08/28/22 02:52 Baso % (Auto) 0.2 % 08/28/22 02:52 Neut # (Auto) 11.93 10^3/uL (1.8-7.7) H 08/28/22 02:52 Lymph # (Auto) 0.7 10^3/uL (0.8-4.8) L 08/28/22 02:52 [place] # (Auto) 1.1 10^3/uL (0.2-0.9) H 08/28/22 02:52 Eos # (Auto) 0.0 10^3/uL (0.0-0.8) 08/28/22 02:52 Baso # (Auto) 0.0 10^3/uL (0.0-0.1) 08/28/22 02:52 Absolute Gran (auto) Cancelled 08/27/22 03:09 Nucleated RBC % (auto) 0 % 08/28/22 02:52 Nucleated RBCs # 0.0 /100WBC 08/28/22 02:52 PT 16.20 SECONDS (12.1-14.9) H 08/26/22 00:55 INR 1.26 (0.8-1.2) H 08/26/22 00:55 APTT 141.9 SECONDS (23.9-36.7) H 08/28/22 07:50 D-Dimer 0.62 ug/mIFEU (0-0.59) H 08/26/22 00:55 Specimen Type Arterial 08/28/22 03:41 Sample Site Radial, right 08/28/22 03:41 ABG pH 7.36 (7.35-7.45) 08/28/22 03:41 ABG pCO2 34.0 mmHg (35-45) L 08/28/22 03:41 ABG pO2 72.1 mmHg (80.0-100.0) L 08/28/22 03:41 ABG HCO3 19.1 mmol/L (22-26) L 08/28/22 03:41 ABG O2 Saturation 96.2 08/28/22 03:41 ABG Base Excess -5.5 mmol/L (-2.0-2.0) L 08/28/22 03:41 Luis Fernando Test Pos 08/28/22 03:41 A-a O2 Gradient 4.7 mmHg (5-10) L 08/28/22 03:41 Hematocrit 45.2 % (42-52) 08/28/22 03:41 Hgb O2 Saturation 94.4 % (95-100) L 08/28/22 03:41 Carboxyhemoglobin 1.7 %THgb (0.4-20.1) 08/28/22 03:41 Methemoglobin 0.2 % (0.4-1.5) L 08/28/22 03:41 Total Hemoglobin 14.8 g/dL (14-18) 08/28/22 03:41 Sodium 137.0 mmol/L (131-143) 08/28/22 03:41 Potassium 4.0 mmol/L (3.5-5.0) 08/28/22 03:41 Glucose 174.0 mg/dL (70-115) H 08/28/22 03:41 Ionized Calcium 1.1 mmol/L (1.1-1.4) 08/28/22 03:41 O2 Delivery Device None 08/28/22 03:41 FiO2 21.0 % 08/28/22 03:41 Tidal Volume 0.45 08/27/22 04:00 PEEP 8.0 cmH20 08/27/22 04:00 Runner Man ID Petrajermain 08/28/22 03:41 Sodium 136 mmol/L (136-145) 08/28/22 02:52 Potassium 4.2 mmol/L (3.5-5.1) 08/28/22 02:52 Chloride 102 mmol/L (98-107) 08/28/22 02:52 Carbon Dioxide 16 mmol/L (22-29) L 08/28/22 02:52 Anion Gap 22.2 (5-19) H 08/28/22 02:52 BUN 38 mg/dL (8-23) H 08/28/22 02:52 Creatinine 5.9 mg/dL (0.7-1.2) H* D 08/28/22 02:52 GFR Calculation 9.6 mL/min (90-130) L 08/28/22 02:52 Glucose 179 mg/dL (65-115) H 08/28/22 02:52 POC Glucose 144 mg/dL (70-110) H 08/28/22 09:08 Estimat Average Glucose 146 08/26/22 07:41 Hemoglobin A1c 6.7 % (4.0-6.0) H 08/26/22 07:41 Calculated Osmolality 296 mOsm/kg (285-295) H 08/28/22 02:52 Lactate 1.8 mmol/L (0.5-2.2) 08/28/22 07:50 Calcium 8.1 mg/dL (8.5-10.5) L 08/28/22 02:52 Magnesium 2.3 mg/dL (1.7-2.3) 08/28/22 02:52 Total Bilirubin 1.1 mg/dL (0.15-1.2) 08/28/22 02:52 AST 77 U/L (0-40) H 08/28/22 02:52 ALT 21 U/L (0-41) 08/28/22 02:52 Alkaline Phosphatase 62 U/L (40-130) 08/28/22 02:52 Creatine Kinase 4597 U/L (39-308) H* 08/28/22 02:52 CK-MB (CK-2) 9.9 ng/mL (0-10.4) 08/28/22 02:52 Troponin T Baseline 14 ng/L (0-15) 08/26/22 00:55 Troponin T 120 Minute 27.62 ng/L (0-15) H 08/26/22 05:05 Delta Troponin T 13.62 ABS# (0-10) H* 08/26/22 05:05 Troponin T Hi Sens 6Hr 34.65 ng/L (0-15) H 08/26/22 07:01 Troponin T Hi Sens 6Hr Delta 20.65 ng/L (0-12) H* 08/26/22 07:01 NT-Pro-B Natriuret Pep 105 pg/mL (0-125) 08/26/22 00:55 Total Protein 6.0 g/dL (6.6-8.7) L 08/28/22 02:52 Albumin 3.1 g/dL (3.5-5.2) L 08/28/22 02:52 Globulin 2.9 g/dL (1.3-4.6) 08/28/22 02:52 Triglycerides 265 mg/dL (0-150) H 08/26/22 07:41 Cholesterol 185 mg/dL (0-200) 08/26/22 07:41 LDL Cholesterol, Calc 99 mg/dL (50-129) 08/26/22 07:41 HDL Cholesterol 33 mg/dL (60-100) L 08/26/22 07:41 LDL/HDL Ratio 3.00 RATIO (0.00-3.22) 08/26/22 07:41 Cholesterol/HDL Ratio 5.61 mg/dL (1.0-5.00) H 08/26/22 07:41 TSH 9.22 uIU/mL (0.27-4.20) H 08/26/22 00:55 Free T4 0.98 ng/dL (0.82-1.77) 08/26/22 07:41 Free T3 3.2 PG/ML (2.0-4.4) 08/26/22 07:41 Urine Color Yellow (Yellow) 08/26/22 00:58 Urine Appearance Clear (CLEAR) 08/26/22 00:58 Urine pH 5 (5-7) 08/26/22 00:58 Ur Specific Cyrus 1.020 (1.005-1.030) 08/26/22 00:58 Urine Protein 1+ (Negative) H 08/26/22 00:58 Urine Glucose (UA) Norm (Normal) 08/26/22 00:58 Urine Ketones 1+ (Negative) H 08/26/22 00:58 Urine Blood 3+ (Negative) H 08/26/22 00:58 Urine Nitrate Negative (Negative) 08/26/22 00:58 Urine Bilirubin Neg (Negative) 08/26/22 00:58 Urine Urobilinogen Neg mg/dL (Negative) 08/26/22 00:58 Ur Leukocyte Esterase Negative (Negative) 08/26/22 00:58 Urine RBC 0-4 /hpf (0-2) H 08/26/22 00:58 Urine WBC 0-4 /hpf (0-5) H 08/26/22 00:58 Ur Squamous Epith Cells 0-4 /hpf (0-5) H 08/26/22 00:58 Amorphous Sediment Not Reportable 08/26/22 00:58 Urine Bacteria None /hpf (NONE) 08/26/22 00:58 Urine Opiates Screen Negative ng/mL (Negative) 08/26/22 00:58 Ur Barbiturates Screen Negative ng/mL (Negative) 08/26/22 00:58 Ur Phencyclidine Scrn Negative ng/mL (Negative) 08/26/22 00:58 Ur Amphetamines Screen Negative ng/mL (Negative) 08/26/22 00:58 U Benzodiazepines Scrn Negative ng/mL (Negative) 08/26/22 00:58 Urine Cocaine Screen Negative ng/mL (Negative) 08/26/22 00:58 U Marijuana (THC) Screen Negative ng/mL (Negative) 08/26/22 00:58 Ethyl Alcohol < 10 mg/dL (0-10) 08/26/22 00:55 Micro: Microbiology 08/26/22 11:40 Gram Stain - Final Sputum - Endotracheal Tube Aspirate Sputum Culture - Final 08/26/22 08:55 Blood Culture - Preliminary Blood NEGATIVE TO DATE 08/26/22 08:40 Blood Culture - Preliminary Blood NEGATIVE TO DATE A&P Assessment and plan (1) Syncope: Apparently had some seizure-like activities, noticed by his . Cardiac etiology cannot be excluded. So far he has no evidence of any bradycardia or pauses on the telemetry. (2) Atrial fibrillation with rapid ventricular response: Patient appears to have some paroxysmal atrial fibrillation. Advised to give him IV Lopressor 5 mg followed by 25 mg p.o. twice daily. He will be closely monitored on telemetry. May need to think about anticoagulation, if he has sustained atrial fibrillation. Because of the acute renal failure and the thrombocytopenia, it may be appropriate to hold off for IV anticoagulation for the time being. Discussed with Dr. Diaz (3) Acute respiratory failure with hypoxia and hypercapnia: Sleep apnea could be a contributing factor. No evidence of heart failure at this point. A primary pulmonary pathology also need to be looked into. (4) Cardiomegaly: The cardiogram does not reveal any cardiac chamber enlargement or pericardial effusion. Most likely this is a technical error. (5) Elevated troponin: Most likely a type II MS from atrial fibrillation/respiratory distress. Need to rule out underlying coronary ischemia. Once his clinical status is stable, we may consider doing a Myocardial perfusion imaging. For the time being, may continue on the current medications. (6) Elevated blood pressure reading: The blood pressure is markedly elevated this morning. Etiology is not clear. May start him on amlodipine 5 mg p.o. daily, if the systolic blood pressure stays above 140. (7) Acute kidney injury: This could be multifactorial. This needs to be closely monitored. Rhabdomyolysis, hypotension, arrhythmia, etc. are considerations. In the event of the patient developing any unusual chest pain, palpitations, SOB or any other new symptoms, advised to contact our office. I may see the patient back in the office in 6 months Plan Other problems are Fever, etiology ? seizure disorder Obstructive sleep apnea Attestations Medical Necessity Statement*: Patient requires continued hospital stay for close monitoring and further management Coding Level of Care Code Acute Code for [facility] Fwd Diagnoses Syncope R55 Atrial fibrillation with rapid ventricular response I48.91 Acute respiratory failure with hypoxia and hypercapnia J96.01; J96.02 Cardiomegaly I51.7 Elevated troponin R77.8 Elevated blood pressure reading R03.0 Acute kidney injury N17.9
--- NOTE | 2022-08-28 11:05 | PC.PHAR ---
Due to the patient's worsening renal function, I am decreasing the Zosyn frequency to q12h. Will continue to monitor this patient and make additional adjustments as needed. Please let us know if there is anything that we can do for you or this patient. Thanks, Ambrocio Salamanca, Pharm.D.
[2022-08-28 11:10] LABS: Glucose Point of Care 188 mg/dL (70-110)
[2022-08-28] MEDS: metoprolol tartrate 25 mg Tablet PO ×2 (11:11→20:57)
--- NOTE | 2022-08-28 14:06 | P.PN_ITS ---
Subjective Subjective: Patient was seen and examined this morning, serum creatinine has continued to trend up, CPK was found to be in 4000, renal consulted by the overnight team, patient again briefly went into A-fib with RVR today, requiring IV metoprolol as well as started on p.o. metoprolol, patient is also having low- grade fever, noted Tmax:100.7. Currently he is also developing thrombocytopenia: Medications: Medication Review Details: Generic Name Dose Route Start Last Admin Trade Name Namita PRN Reason Stop Dose Admin Acetaminophen 650 mg 08/26/22 07:15 08/27/22 19:51 Acetaminophen 32 5 Mg Tablet PO 650 mg Q6H PRN Administration MILD PAIN Docusate Sodium 100 mg 08/26/22 09:00 08/28/22 08:35 Docusate Sodium 100 Mg Capsule PO 100 mg BID LIZZETTE Administration Heparin Sodium (Po rcine) 0 unit 08/28/22 00:14 08/28/22 01:22 Heparin 5,000 Un it/Ml Inj 1 Ml IV 4,500 unit PRN PRN Administration Heparin weight-ba se protocol Protocol Fentanyl 2,500 mcg / Sodium 250 mls @ 0 mls/h r 08/26/22 01:00 08/26/22 02:42 Chloride IV 50 mcg/hr .Q0M LIZZETTE 5 mls/hr Titration Protocol Per Protocol Sodium Bicarbonate 150 meq/ 1,150 mls @ 100 m ls/hr 08/28/22 07:15 08/28/22 08:35 Dextrose IV 100 mls/hr .[id number] LIZZETTE Administration Vancomycin/PEG/NAD A/Lysine/Water 1,500 mg in 300 m ls @ 200 mls/hr 08/28/22 09:00 08/28/22 09:41 Vancocin IV 200 mls/hr Q48H LIZZETTE Administration Insulin Human Lisp ro 0 unit 08/26/22 21:00 08/27/22 21:11 Insulin Lispro 1 00 Unit/1 Ml SUBCUT 1 unit BEDTIME LIZZETTE Administration Protocol Insulin Human Lisp ro 0 unit 08/26/22 08:00 08/28/22 11:12 Insulin Lispro 1 00 Unit/1 Ml SUBCUT 4 unit TIDWM LIZZETTE Administration Protocol Metoprolol Tartrat e 25 mg 08/28/22 10:00 08/28/22 11:11 Metoprolol Tartr ate 25 Mg Tablet PO 25 mg BID@0900,2100 LIZZETTE Administration Pantoprazole Sodiu m 40 mg 08/26/22 09:00 08/28/22 08:35 Pantoprazole 40 Mg Sdv IVP 40 mg DAILY LIZZETTE Administration Vitals/I&O/Wt Last Vital Signs Temp 98.0 F 08/28/22 06:00 Pulse 111 H 08/28/22 10:00 Resp 18 08/28/22 10:00 BP 162/109 08/28/22 10:00 Pulse Ox 94 08/28/22 10:00 O2 Del Method 08/28/22 06:00 O2 Flow Rate 2 08/27/22 23:30 FiO2 30 08/27/22 14:21 08/27/22 08/28/22 08/28/22 22:59 06:59 14:59 Intake Total 350 / 600 50 / 650 174.837 / 174.837 Output Total 750 / 750 600 / 1350 Balance -400 / -150 -550 / -700 174.837 / 174.837 Weight last 48 hrs Weight 99 kg Weight 90.718 kg Physical Exam Narrative: AO*3 HENMT: COMMON NORMALS: normocephalic and atraumatic HEAD & SCALP: normoc ephalic and atraumatic Resp: COMMON NORMALS: clear to auscultation bilaterally AUSCULTATION: clear to auscultation bilaterally Cardio: COMMON NORMALS: regular rate, regular rhythm, S1 normal heart sound present, S2 normal heart sound present, No gallops present (Cardio), No murmurs present (Cardio), No rub (Cardio) and Peripheral pulses 2+ throughout RATE: regular rate RHYTHM: regular rhythm HEART SOUNDS: S1 normal heart sound present and S2 normal heart sound present PERIPHERAL PULSES: Peripheral pulses 2+ throughout GI: COMMON NORMALS: Normal to inspection, nondistended, normoactive bowel sounds present, Soft to palpation, non-tender, No hepatosplenomegaly present and no masses AUSCULTATION: Yes normoactive bowel sounds PALPATION: Yes Soft to palpation and Yes No hepatosplenomegaly present RECTAL EXAM: Yes deferred Extremity: COMMON NORMALS: no clubbing, cyanosis or edema and no pedal edema Urinary Catheter Management: Shirley: Cath Placed During This Visit: yes Reason for Continuing Indwelling Catheter: Accurate Measurement of Urinary Output in Critically Ill Patients Urinary Catheter Date of Insertion: 08/26/22 Urinary Catheter Time of Insertion: 00:57 Data 08/28/22 02:52 08/28/22 02:52 Micro: Microbiology 08/27/22 20:00 MRSA Culture - Final Nose 08/26/22 11:40 Gram Stain - Final Sputum - Endotracheal Tube Aspirate Sputum Culture - Final A&P Assessment and plan (1) Syncope: Associated with loss of consciousness. Specific etiology of event is unclear. Differential includes acute [place], CVA, thrombotic event, arrhythmia, medication effect, seizure, accidental trauma, among others. (2) Acute respiratory failure with hypoxia and hypercapnia: When specifically asked patient does have a history of sleep apnea as he has a CPAP machine at home though he does not use it. No other known respiratory disease. He was hypoxic and hypercapnic at presentation necessitating intubation. (3) Atrial fibrillation with rapid ventricular response: No prior history of atrial fibrillation, has since converted to sinus rhythm, may be secondary to acute events (4) Acidosis, lactic: Could be secondary to hypoxemia, does have leukocytosis and was initially tachycardic but has maintained blood pressures. Chest x-ray with some hazy opacities but no recent respiratory symptoms. (5) Acute kidney injury: PERCY on CKD: Possibly secondary to ATN precipitated by relative hypotension precipitated by sepsis. Patient is also chronically on meloxicam. Possible contribution from rhabdomyolysis. Baseline serum creatinine is unknown Admission serum creatinine was 2.1 Renal ultrasound: No hydronephrosis or cortical thinning. No renal atrophy. Follow random urine sodium Random urine creatinine Random urine total protein FENA UPCR Monitor intake output charting. Currently on bicarb drip Avoid nephrotoxic's Nephrology on board. (6) Hyperglycemia: Without a known history of diabetes (7) PTSD (post-traumatic stress disorder): On chronic sertraline and as needed hydralazine (8) Restless legs syndrome (RLS): On chronic tizanidine (9) Osteoarthritis: On chronic meloxicam (10) NSTEMI (non-ST elevated myocardial infarction): Likely NSTEMI type II: In the setting of A-fib with RVR and sepsis Troponin trend: 2D echo: Normal LV size and systolic function with LVEF of 72%, no RWMA, mild LVH, grade 1 diastolic dysfunction. Cardiology on board (11) Sepsis: Patient meets sepsis criteria: Has elevated white cell count , elevated lactic acid, fever, hypotension, Endorgan dysfunction in the form of PERCY, elevated troponin. Patient has received IV fluid bolus, to which he has responded appropriately. Blood culture:NTD MRSA PCR: Positive CT chest abdomen and pelvis without contrast: No acute pathology found. Urine culture: Sputum Gram stain and culture: Rare gram-positive cocci in pairs Currently empirically covered with broad-spectrum antibiotics (12) Thrombocytopenia: Patient platelet count on admission was:214 Current platelet count is:122 Differential diagnosis includes: Possibly secondary to sepsis, follow DIC panel, peripheral smear evaluation for possible schistocytosis, for TTP initiate assessment, low clinical suspicion for HIT(4T Score ) , low clinical suspicion for ITP. Monitor platelet count for now. Currently has no active bleeding petechiae purpura. (13) Rhabdomyolysis: Continue IV hydration with bicarb drip Monitor CPK (14) Seizure: Possible seizure-like episode at home.Nothing noted during the hospital stay. Follow prolactin (I am not sure of its utility ) Continue monitoring for now may be neurology follow-up as outpatient. Attestations Medical Necessity Statement*: Needs to be in hospital management PERCY sepsis. Critical Care Time: The high probability of a clinically significant, sudden or life threatening deterioration of the patient's [] system(s) required my full and direct attention, intervention and personal management. The critical care time is as shown. This time is in addition to time spent performing any reported procedures but includes the following: [x] Data and vital sign review and interpretation [x] Patient assessment, examination and intervention [x] Documentation [x] Medication orders and management Critical Care Time (min): 35 Coding Level of Care Code Critical Care >/= 30 minutes Diagnoses Syncope R55 Acute respiratory failure with hypoxia and hypercapnia J96.01; J96.02 Atrial fibrillation with rapid ventricular response I48.91 Acidosis, lactic E87.20 Acute kidney injury N17.9 Hyperglycemia R73.9 PTSD (post-traumatic stress disorder) F43.10 Restless legs syndrome (RLS) G25.81 Osteoarthritis M19.90 NSTEMI (non-ST elevated myocardial infarction) I21.4 Sepsis A41.9 Thrombocytopenia D69.6 Rhabdomyolysis M62.82 Seizure R56.9
[2022-08-28 17:11] LABS: Glucose Point of Care 170 mg/dL (70-110)
[2022-08-28] MEDS: guaiFENesin 600 mg Tablet 1200 MG PO (17:54)
[2022-08-28 18:06] LABS: Creatinine Urine, Random 48 mg/dL (39-259)
[2022-08-28 18:11] LABS: Urine Random Chloride 28 mmol/L; Urine Random Sodium 46 mmol/L
[2022-08-28 18:13] LABS: Urine Protein Random 23 mg/dL
--- NOTE | 2022-08-28 20:31 | P.CONIM_ITS ---
Providers/Reason For Consult Consulting Physician/Specialty*: [facility]/Nephrology Reason for Consult*: ESRD Attending Physician: Cade Diaz MD History of Present Illness History of Present Illness Patient is a 67-year-old male with past medical history of obstructive sleep apnea was admitted to the hospital on 08/26/2022 after he was found unresponsive at home by his family. Per EMS patient was hypoxic and was intubated at the [facility] [place]. He was noted to be in A-fib with RVR. Also was blood pressure was elevated initially in the ER but during the hospital course blood pressure dropped lowest into the 90s systolic. Initial ABG showed PCO2 of 59, pH of 7.02. Initial labs in the ER-sodium was 149 bicarb was [address] scan head foot negative and CT cervical spine but negative for fractures. He has elevated troponins. No prior labs available, creatinine on presentation was 1.5 worsened to 5.9 currently and patient oliguric. Also has metabolic acidosis. Renal ultrasound showed no hydronephrosis but questionable renal abscess versus pyelonephritis. Patient denies any NSAID use. Using meloxicam at home. Review of Systems Narrative: negative Medications/Allergies Home Medications Medication Instructions Recorded Confirmed Last Taken Type hydroxyzine HCl 25 mg tablet 25 mg PO BEDTIME PRN Anxiety 08/26/22 08/26/22 08/25/22 History meloxicam 15 mg tablet 15 mg PO DAILY 08/26/22 08/26/22 08/25/22 History sertraline 50 mg tablet (Zoloft) 25 mg PO DAILY 08/26/22 08/26/22 08/25/22 History tizanidine 4 mg tablet 4 mg PO BEDTIME PRN Muscle Pain 08/26/22 08/26/22 08/25/22 History Allergies Allergy/AdvReac Type Severity Reaction Status Date / Time No Known Allergies Allergy Verified 08/26/22 07:41 Current Medications Generic Name Dose Route Start Last Admin Trade Name Freq PRN Reason Stop Dose Admin Acetaminophen 650 mg 08/26/22 07:15 08/27/22 19:51 Acetaminophen 325 Mg Tablet PO 650 mg Q6H PRN Administration MILD PAIN Docusate Sodium 100 mg 08/26/22 09:00 08/28/22 17:00 Docusate Sodium 100 Mg Capsule PO Not Given BID [facility] Guaifenesin 1,200 mg 08/28/22 18:00 08/28/22 17:54 Guaifenesin 600 Mg Tablet PO 1,200 mg BID LIZZETTE Administration Heparin Sodium (Porcine) 0 unit 08/28/22 00:14 08/28/22 01:22 Heparin 5,000 Unit/Ml Inj 1 Ml IV 4,500 unit PRN PRN Administration Heparin weight-base protocol Protocol Fentanyl 2,500 mcg/ Sodium 250 mls @ 0 mls/hr 08/26/22 01:00 08/26/22 02:42 Chloride IV 50 mcg/hr .Q0M LIZZETTE 5 mls/hr Titration Protocol Per Protocol Sodium Bicarbonate 150 meq/ 1,150 mls @ 100 mls/hr 08/28/22 07:15 08/28/22 19:09 Dextrose IV 100 mls/hr .[id number] LIZZETTE Administration Vancomycin/PEG/NADA/Lysine/Water 1,500 mg in 300 mls @ 200 mls/hr 08/28/22 09:00 08/28/22 17:13 Vancocin IV Infused Q48H LIZZETTE Infusion Piperacillin Sod/Tazobactam 50 mls @ 12.5 mls/hr 08/28/22 16:00 08/28/22 16:58 Sod 3.375 gm/ Sodium Chloride IV 12.5 mls/hr Q12H LIZZETTE Administration Protocol Insulin Human Lispro 0 unit 08/26/22 21:00 08/27/22 21:11 Insulin Lispro 100 Unit/1 Ml SUBCUT 1 unit BEDTIME LIZZETTE Administration Protocol Insulin Human Lispro 0 unit 08/26/22 08:00 08/28/22 17:35 Insulin Lispro 100 Unit/1 Ml SUBCUT 2 unit TIDWM LIZZETTE Administration Protocol Metoprolol Tartrate 25 mg 08/28/22 10:00 08/28/22 11:11 Metoprolol Tartrate 25 Mg Tablet PO 25 mg BID@0900,2100 LIZZETTE Administration Pantoprazole Sodium 40 mg 08/26/22 09:00 08/28/22 08:35 Pantoprazole 40 Mg Sdv IVP 40 mg DAILY LIZZETTE Administration PFSH Acute PFSH: Medical History MONTRELL (obstructive sleep apnea) Osteoarthritis PTSD (post-traumatic stress disorder) Restless legs syndrome (RLS) Surgical History History of surgery on left wrist due to chain saw injury Family History Brother CAD (coronary artery disease) Social History Smoking and tobacco status: never smoked Alcohol intake: current Alcohol use comment: rare alcohol use Substance/Drug Use: never Household members: spouse Marital status: Vitals/I&O/Wt Last Vital Signs Temp 98.0 F 08/28/22 18:00 Pulse 72 08/28/22 18:00 Resp 21 H 08/28/22 18:00 BP 141/89 08/28/22 18:00 Pulse Ox 94 08/28/22 18:00 O2 Del Method 08/28/22 18:00 O2 Flow Rate 2 08/27/22 23:30 FiO2 30 08/27/22 14:21 08/28/22 08/28/22 08/28/22 06:59 14:59 22:59 Intake Total 50 / 650 174.837 / 801.459 1010.667 / 1531.504 Output Total 600 / 1350 1200 / 1200 Balance -550 / -700 174.837 / 174.837 156.667 / 331.504 Weight last 48 hrs Weight 99 kg Weight 90.718 kg Physical Exam Narrative: Awake, alert, no acute distress 1+ pedal edema Urinary Catheter Management: Shirley: Cath Placed During This Visit: yes Reason for Continuing Indwelling Catheter: Accurate Measurement of Urinary Output in Critically Ill Patients Urinary Catheter Date of Insertion: 08/28/22 Urinary Catheter Time of Insertion: 16:48 Data 08/28/22 02:52 08/28/22 02:52 Micro: Microbiology 08/27/22 20:00 MRSA Culture - Final Nose 08/26/22 11:40 Gram Stain - Final Sputum - Endotracheal Tube Aspirate Sputum Culture - Final A&P Assessment and plan (1) Acute kidney injury: Plan 1. Acute kidney injury: Unknown creatinine baseline, creatinine on presentation was 1.5, currently at 5.9, patient oliguric and has metabolic acidosis. Etiology of PERCY likely hemodynamic changes due to rapid A-fib with fluctuating blood pressures, possibly have developed ATN. -Noted renal ultrasound results with no hydronephrosis but questionable abscess versus mass versus pyelo on ultrasound-plan for CT without contrast -No acute indication for dialysis, will watch closely if no improvement may require temporary HD. -Placed on bicarbonate drip, will repeat BMP this evening -Noted mildly elevated CK levels, follow trend. 2. Metabolic acidosis: On bicarbonate drip, follow closely, lactate normal. 3. Possible sepsis: ? Source of infection. Dosed vancomycin and Zosyn per GFR 4. Rhabdomyolysis: Mild, monitor CPK trend, continue bicarbonate drip 5. Thrombocytopenia: Mild, follow peripheral smear evaluation for schistocytes . 6. NSTEMI 7. Diabetes Patient evaluated using audiovisual cart. Time spent 45 minutes Consult Attestations Medical Necessity Statement: Patient requires continued hospital stay for close monitoring and further management Coding Level of Care Code Acute Code for [facility] Fwd Diagnoses Acute kidney injury N17.9
[2022-08-28 21:08] LABS: Glucose Point of Care 171 mg/dL (70-110)
[2022-08-29] VITALS (44 sets, daily range): BP systolic 114–155; BP diastolic 76–95; PULSE 55–93; RESP 6–27; TEMP 36.6–37.6; O2SAT 91–98
[2022-08-29] MEDS: piperacillin-tazobactam 3.375 GM in sodium chloride 0.9% (plus) 50 ML IV ×2 (03:35→16:10)
[2022-08-29 04:46] LABS: Basophils % 0.2 %; Eosinophils % 0.4 %; Hematocrit 38.6 % (42.0-52.0); Hemoglobin 13.7 g/dL (11.7-16.6); Lymphocytes # 0.8 10^3/uL (0.8-4.8); Lymphocytes % 7.7 %; Mean Corpuscular HGB Conc 35.5 g/dL (30.0-36.0); Mean Corpuscular Volume 87.3 fl (80-94); Mean Platelet Volume 10.2 fL (7.4-10.4); Monocytes # 0.9 10^3/uL (0.2-0.9); Monocytes % 7.9 %; Neutrophils # 9.07 10^3/uL (1.8-7.7); Neutrophils % 83.4 %; Nucleated Red Blood Cells % 0 %; Platelet Count 130 10^3/cmm (130-400); Red Blood Count 4.42 10^6/uL (4.1-5.3); Red Cell Distribution Width 12.7 % (12.1-15.1); White Blood Count 10.9 10^3/uL (4.0-10.0)
[2022-08-29 05:00] LABS: Fibrinogen 619 mg/dL (174-498); Partial Thromboplastin Time 32.8 SECONDS (23.9-36.7)
[2022-08-29 05:14] LABS: Alanine Aminotransferase 20 U/L (0-41); Albumin Level 3.2 g/dL (3.5-5.2); Alkaline Phosphatase 75 U/L (40-130); Anion Gap 20.2 (5-19); Aspartate Amino Transferase 60 U/L (0-40); Blood Urea Nitrogen 55 mg/dL (8-23); Calcium 7.9 mg/dL (8.5-10.5); Carbon Dioxide 24 mmol/L (22-29); Chloride 101 mmol/L (98-107); Globulin 2.8 g/dL (1.3-4.6); Glomerular Filtration Rate 9.6 mL/min (90-130); Glucose 182 mg/dL (65-115); Magnesium 2.2 mg/dL (1.7-2.3); Osmolality Calculated 312 mOsm/kg (285-295); Potassium 4.2 mmol/L (3.5-5.1); Prolactin 14.94 ng/mL (4.0-15.2); Sodium 141 mmol/L (136-145); Total Bilirubin 0.8 mg/dL (0.15-1.2)
[2022-08-29 05:31] LABS: Creatine Phosphokinase 2711 U/L (39-308)
[2022-08-29 06:02] LABS: CKMB 4.1 ng/mL (0-10.4)
[2022-08-29] MEDS: levofloxacin-dextrose 5 % 750 MG/150 ML PREMIX 100 MG IV (06:27)
[2022-08-29] MEDS: sodium chloride 0.9% 1,000 ML 125 ML IV (06:27)
[2022-08-29 07:50] LABS: Glucose Point of Care 175 mg/dL (70-110)
[2022-08-29] MEDS: insulin lispro 100 unit/1 mL SUBCUT ×2 (07:54→20:23)
[2022-08-29] MEDS: docusate sodium 100 mg Capsule PO ×2 (08:43→17:23)
[2022-08-29] MEDS: guaiFENesin 600 mg Tablet 1200 MG PO ×2 (08:43→17:23)
[2022-08-29] MEDS: pantoprazole 40 mg SDV IVP (08:46)
--- NOTE | 2022-08-29 08:55 | PM.PN ---
Subjective Subjective: Patient is complaining of feeling tired and weak. He also has some nausea. He is afebrile. The BUN and creatinine seems to have plateaued. No chest pain or shortness of breath. Telemetry shows mostly sinus rhythm. Blood pressure seems to be under control. Medications: Medication Review Details: Current Medications Acetaminophen (Acetaminophen 325 Mg Tablet) 650 mg PO Q6H PRN PRN Reason: MILD PAIN Last Admin: 08/27/22 19:51 Dose: 650 mg Albuterol/Ipratropium (Ipratropium-Albuterol 3 Ml Neb) 3 ml INHALATION Q6H PRN PRN Reason: SHORTNESS OF BREATH Dextrose (Dextrose 50% Syringe 50 Ml) 25 ml IVP ONCE PRN; Protocol PRN Reason: hypoglycemia protocol Dextrose (Dextrose 50% Syringe 50 Ml) 50 ml IVP PRN PRN; Protocol PRN Reason: hypoglycemia protocol Docusate Sodium (Docusate Sodium 100 Mg Capsule) 100 mg PO BID [facility] Last Admin: 08/28/22 17:00 Dose: Not Given Glucagon (Glucagon 1 Mg/Ml Inj 1 Ml) 1 mg IM ONCE PRN; Protocol PRN Reason: Adult Acute Hypoglycemia Prot. Guaifenesin (Guaifenesin 600 Mg Tablet) 1,200 mg PO BID [facility] Last Admin: 08/28/22 17:54 Dose: 1,200 mg Heparin Sodium (Porcine) (Heparin 5,000 Unit/Ml Inj 1 Ml) 0 unit IV PRN PRN; Protocol PRN Reason: Heparin weight-base protocol Last Admin: 08/28/22 01:22 Dose: 4,500 unit Fentanyl 2,500 mcg/ Sodium (Chloride) 250 mls @ 0 mls/hr IV .Q0M [facility]; Protocol Last Titration: 08/26/22 02:42 Dose: 50 mcg/hr, 5 mls/hr Dextrose (D5w) 500 mls @ 100 mls/hr IV ONCE PRN; Protocol PRN Reason: Adult Acute Hypoglycemia Prot Levofloxacin/Dextrose (Levaquin-D5w) 750 mg in 150 mls @ 100 mls/hr IV Q48H [facility]; Protocol Last Admin: 08/29/22 06:27 Dose: 100 mls/hr Vancomycin/PEG/NADA/Lysine/Water (Vancocin) 1,500 mg in 300 mls @ 200 mls/hr IV Q48H [facility] Last Infusion: 08/28/22 17:13 Dose: Infused Piperacillin Sod/Tazobactam (Sod 3.375 gm/ Sodium Chloride) 50 mls @ 12.5 mls/hr IV Q12H [facility]; Protocol Last Admin: 08/29/22 03:35 Dose: 12.5 mls/hr Sodium Chloride (Sodium Chloride 0.9%) 1,000 mls @ 125 mls/hr IV .Q8H [facility] Last Admin: 08/29/22 06:27 Dose: 125 mls/hr Insulin Human Lispro (Insulin Lispro 100 Unit/1 Ml) 0 unit SUBCUT BEDTIME [facility]; Protocol Last Admin: 08/28/22 21:08 Dose: 1 unit Insulin Human Lispro (Insulin Lispro 100 Unit/1 Ml) 0 unit SUBCUT TIDWM [facility]; Protocol Last Admin: 08/29/22 07:54 Dose: 2 unit Metoprolol Tartrate (Metoprolol Tartrate 25 Mg Tablet) 25 mg PO BID@0900,2100 [facility] Last Admin: 08/28/22 20:57 Dose: 25 mg Ondansetron HCl (Ondansetron 2 Mg/Ml Sdv 2 Ml) 4 mg IVP Q6H PRN PRN Reason: NAUSEA AND VOMITING Pantoprazole Sodium (Pantoprazole 40 Mg Sdv) 40 mg IVP DAILY [facility] Last Admin: 08/28/22 08:35 Dose: 40 mg Vitals/I&O/Wt Last Vital Signs Temp 98.7 F 08/29/22 04:00 Pulse 58 L 08/29/22 06:00 Resp 15 08/29/22 06:00 BP 129/82 08/29/22 06:00 Pulse Ox 95 08/29/22 06:00 O2 Del Method 08/28/22 18:00 O2 Flow Rate 2 08/27/22 23:30 FiO2 30 08/27/22 14:21 08/28/22 08/29/22 08/29/22 22:59 06:59 14:59 Intake Total 1406.667 / 1581.504 0 / 1581.504 Output Total 1200 / 1200 1100 / 2300 Balance 206.667 / 381.504 -1100 / -718.496 Weight last 48 hrs Weight 221 lb 9.033 oz Weight 218 lb 4.122 oz Physical Exam Narrative: GENERAL: The patient is alert and oriented times three. Not in any acute distress. HEENT: No significant pallor, icterus or lymphadenopathy.Oral cavity: There are no mucous membrane lesions. NECK: Trachea appears to be central. No masses noted. No JVD or thyromegaly appreciated. RESPIRATORY: Chest is symmetrical. No intercostals muscle retraction or any accessory muscle activation. There is no chest wall tenderness. Breath sounds are heard bilaterally. No rales or rhonchi heard. No evidence of any consolidation. BREASTS: Deferred. HEART: The heart sounds are normal. No S3 or S4. No significant murmurs. No pericardial rub ABDOMEN: No vessel pulsations or distention. No tenderness. No organomegaly appreciated. Bowel sounds are normally heard. : Deferred. RECTAL: Deferred. LYMPHATIC: No lymphadenopathy noted in the neck. EXTREMITIES: No edema or cyanosis. No clubbing. MUSCULOSKELETAL: No acute joint deformities or swelling SKIN: There are no significant rashes or ecchymosis NEUROPSYCHIATRIC: The patient is alert and oriented x3. Appears to be in a good mood. No tremors or rigidity noted. Urinary Catheter Management: Shirley: Cath Placed During This Visit: yes Reason for Continuing Indwelling Catheter: Accurate Measurement of Urinary Output in Critically Ill Patients Urinary Catheter Date of Insertion: 08/28/22 Urinary Catheter Time of Insertion: 16:48 Data 08/29/22 03:45 08/29/22 03:45 Other Labs: Laboratory Last Values WBC 10.9 10^3/uL (4.0-10.0) H 08/29/22 03:45 Corrected WBC Cancelled 08/27/22 03:09 RBC 4.42 10^6/uL (4.1-5.3) 08/29/22 03:45 Hgb 13.7 g/dL (11.7-16.6) 08/29/22 03:45 Hct 38.6 % (42.0-52.0) L 08/29/22 03:45 MCV 87.3 fl (80-94) 08/29/22 03:45 MCH 31.0 pg (28.0-34.0) 08/29/22 03:45 MCHC 35.5 g/dL (30.0-36.0) 08/29/22 03:45 RDW 12.7 % (12.1-15.1) 08/29/22 03:45 Plt Count 130 10^3/cmm (130-400) 08/29/22 03:45 MPV 10.2 fL (7.4-10.4) 08/29/22 03:45 Gran % Cancelled 08/27/22 03:09 Neut % (Auto) 83.4 % 08/29/22 03:45 Lymph % (Auto) 7.7 % 08/29/22 03:45 [place] % (Auto) 7.9 % 08/29/22 03:45 Eos % (Auto) 0.4 % 08/29/22 03:45 Baso % (Auto) 0.2 % 08/29/22 03:45 Neut # (Auto) 9.07 10^3/uL (1.8-7.7) H 08/29/22 03:45 Lymph # (Auto) 0.8 10^3/uL (0.8-4.8) 08/29/22 03:45 [place] # (Auto) 0.9 10^3/uL (0.2-0.9) 08/29/22 03:45 Eos # (Auto) 0.0 10^3/uL (0.0-0.8) 08/29/22 03:45 Baso # (Auto) 0.0 10^3/uL (0.0-0.1) 08/29/22 03:45 Absolute Gran (auto) Cancelled 08/27/22 03:09 Nucleated RBC % (auto) 0 % 08/29/22 03:45 Nucleated RBCs # 0.0 /100WBC 08/29/22 03:45 PT 17.70 SECONDS (12.1-14.9) H 08/29/22 03:45 INR 1.40 (0.8-1.2) H 08/29/22 03:45 APTT 32.8 SECONDS (23.9-36.7) D 08/29/22 03:45 Fibrinogen 619 mg/dL (174-498) H 08/29/22 03:45 Fibrin Degrad Products Neg, <10 ug/mL (NEG) 08/29/22 03:45 D-Dimer 0.62 ug/mIFEU (0-0.59) H 08/26/22 00:55 Specimen Type Arterial 08/28/22 03:41 Sample Site Radial, right 08/28/22 03:41 ABG pH 7.36 (7.35-7.45) 08/28/22 03:41 ABG pCO2 34.0 mmHg (35-45) L 08/28/22 03:41 ABG pO2 72.1 mmHg (80.0-100.0) L 08/28/22 03:41 ABG HCO3 19.1 mmol/L (22-26) L 08/28/22 03:41 ABG O2 Saturation 96.2 08/28/22 03:41 ABG Base Excess -5.5 mmol/L (-2.0-2.0) L 08/28/22 03:41 Luis Fernando Test Pos 08/28/22 03:41 A-a O2 Gradient 4.7 mmHg (5-10) L 08/28/22 03:41 Hematocrit 45.2 % (42-52) 08/28/22 03:41 Hgb O2 Saturation 94.4 % (95-100) L 08/28/22 03:41 Carboxyhemoglobin 1.7 %THgb (0.4-20.1) 08/28/22 03:41 Methemoglobin 0.2 % (0.4-1.5) L 08/28/22 03:41 Total Hemoglobin 14.8 g/dL (14-18) 08/28/22 03:41 Sodium 137.0 mmol/L (131-143) 08/28/22 03:41 Potassium 4.0 mmol/L (3.5-5.0) 08/28/22 03:41 Glucose 174.0 mg/dL (70-115) H 08/28/22 03:41 Ionized Calcium 1.1 mmol/L (1.1-1.4) 08/28/22 03:41 O2 Delivery Device None 08/28/22 03:41 FiO2 21.0 % 08/28/22 03:41 Tidal Volume 0.45 08/27/22 04:00 PEEP 8.0 cmH20 08/27/22 04:00 Grain Drier ID Ale[place] 08/28/22 03:41 Sodium 141 mmol/L (136-145) 08/29/22 03:45 Potassium 4.2 mmol/L (3.5-5.1) 08/29/22 03:45 Chloride 101 mmol/L (98-107) 08/29/22 03:45 Carbon Dioxide 24 mmol/L (22-29) 08/29/22 03:45 Anion Gap 20.2 (5-19) H 08/29/22 03:45 BUN 55 mg/dL (8-23) H 08/29/22 03:45 Creatinine 5.9 mg/dL (0.7-1.2) H* 08/29/22 03:45 GFR Calculation 9.6 mL/min (90-130) L 08/29/22 03:45 Glucose 182 mg/dL (65-115) H 08/29/22 03:45 POC Glucose 175 mg/dL (70-110) H 08/29/22 07:40 Estimat Average Glucose 146 08/26/22 07:41 Hemoglobin A1c 6.7 % (4.0-6.0) H 08/26/22 07:41 Calculated Osmolality 312 mOsm/kg (285-295) H 08/29/22 03:45 Lactate 1.8 mmol/L (0.5-2.2) 08/28/22 07:50 Calcium 7.9 mg/dL (8.5-10.5) L 08/29/22 03:45 Magnesium 2.2 mg/dL (1.7-2.3) 08/29/22 03:45 Total Bilirubin 0.8 mg/dL (0.15-1.2) 08/29/22 03:45 AST 60 U/L (0-40) H 08/29/22 03:45 ALT 20 U/L (0-41) 08/29/22 03:45 Alkaline Phosphatase 75 U/L (40-130) 08/29/22 03:45 Creatine Kinase 2711 U/L (39-308) H* 08/29/22 03:45 CK-MB (CK-2) 4.1 ng/mL (0-10.4) 08/29/22 03:45 CK-MB (CK-2) Rel Index % (0.0-5.3) 08/29/22 03:45 Troponin T Baseline 14 ng/L (0-15) 08/26/22 00:55 Troponin T 120 Minute 27.62 ng/L (0-15) H 08/26/22 05:05 Delta Troponin T 13.62 ABS# (0-10) H* 08/26/22 05:05 Troponin T Hi Sens 6Hr 34.65 ng/L (0-15) H 08/26/22 07:01 Troponin T Hi Sens 6Hr Delta 20.65 ng/L (0-12) H* 08/26/22 07:01 NT-Pro-B Natriuret Pep 105 pg/mL (0-125) 08/26/22 00:55 Total Protein 6.0 g/dL (6.6-8.7) L 08/29/22 03:45 Albumin 3.2 g/dL (3.5-5.2) L 08/29/22 03:45 Globulin 2.8 g/dL (1.3-4.6) 08/29/22 03:45 Triglycerides 265 mg/dL (0-150) H 08/26/22 07:41 Cholesterol 185 mg/dL (0-200) 08/26/22 07:41 LDL Cholesterol, Calc 99 mg/dL (50-129) 08/26/22 07:41 HDL Cholesterol 33 mg/dL (60-100) L 08/26/22 07:41 LDL/HDL Ratio 3.00 RATIO (0.00-3.22) 08/26/22 07:41 Cholesterol/HDL Ratio 5.61 mg/dL (1.0-5.00) H 08/26/22 07:41 TSH 9.22 uIU/mL (0.27-4.20) H 08/26/22 00:55 Free T4 0.98 ng/dL (0.82-1.77) 08/26/22 07:41 Free T3 3.2 PG/ML (2.0-4.4) 08/26/22 07:41 Prolactin 14.94 ng/mL (4.0-15.2) 08/29/22 03:45 Urine Color Yellow (Yellow) 08/26/22 00:58 Urine Appearance Clear (CLEAR) 08/26/22 00:58 Urine pH 5 (5-7) 08/26/22 00:58 Ur Specific [place] 1.020 (1.005-1.030) 08/26/22 00:58 Urine Protein 1+ (Negative) H 08/26/22 00:58 Urine Glucose (UA) Norm (Normal) 08/26/22 00:58 Urine Ketones 1+ (Negative) H 08/26/22 00:58 Urine Blood 3+ (Negative) H 08/26/22 00:58 Urine Nitrate Negative (Negative) 08/26/22 00:58 Urine Bilirubin Neg (Negative) 08/26/22 00:58 Urine Urobilinogen Neg mg/dL (Negative) 08/26/22 00:58 Ur Leukocyte Esterase Negative (Negative) 08/26/22 00:58 Urine RBC 0-4 /hpf (0-2) H 08/26/22 00:58 Urine WBC 0-4 /hpf (0-5) H 08/26/22 00:58 Ur Squamous Epith Cells 0-4 /hpf (0-5) H 08/26/22 00:58 Amorphous Sediment Not Reportable 08/26/22 00:58 Urine Bacteria None /hpf (NONE) 08/26/22 00:58 U Random Total Protein 23 mg/dL 08/28/22 17:05 Ur Random Sodium 46 mmol/L 08/28/22 17:05 Ur Random Chloride 28 mmol/L 08/28/22 17:05 Urine Creatinine 48 mg/dL (39-259) 08/28/22 17:05 Urine Opiates Screen Negative ng/mL (Negative) 08/26/22 00:58 Ur Barbiturates Screen Negative ng/mL (Negative) 08/26/22 00:58 Ur Phencyclidine Scrn Negative ng/mL (Negative) 08/26/22 00:58 Ur Amphetamines Screen Negative ng/mL (Negative) 08/26/22 00:58 U Benzodiazepines Scrn Negative ng/mL (Negative) 08/26/22 00:58 Urine Cocaine Screen Negative ng/mL (Negative) 08/26/22 00:58 U Marijuana (THC) Screen Negative ng/mL (Negative) 08/26/22 00:58 Ethyl Alcohol < 10 mg/dL (0-10) 08/26/22 00:55 Micro: Microbiology 08/27/22 20:00 MRSA Culture - Final Nose 08/26/22 11:40 Gram Stain - Final Sputum - Endotracheal Tube Aspirate Sputum Culture - Final A&P Assessment and plan (1) Syncope: The etiology is not clear. Has not had any recurrence. Possibility of a seizure disorder cannot be excluded. No evidence of any high degree AV block so far. (2) Atrial fibrillation with rapid ventricular response: May continue on the beta-luis fernando. Because of the intermittent atrial fibrillation, it would be appropriate to keep him on anticoagulation. (3) Acute respiratory failure with hypoxia and hypercapnia: Patient is extubated. Respiratory status seems to be stable. (4) Elevated troponin: Most likely a type II VA from atrial fibrillation/respiratory distress. Need to rule out underlying coronary ischemia. We may go ahead and do a Myocardial perfusion imaging tomorrow. (5) Elevated blood pressure reading: The blood pressure seems to be under control. May continue on the current medications. (6) Acute kidney injury: The creatinine is 5.9 today, essentially unchanged from yesterday. Nephrology service is following up on this patient Plan Other problems are Fever, etiology ? seizure disorder Obstructive sleep apnea Lexiscan/sestamibi/sestamibi stress test tomorrow. Based on the results, further management decisions will be made Attestations Medical Necessity Statement*: Patient requires continued hospital stay for close monitoring and further management Coding Level of Care Code 18993 Diagnoses Syncope R55 Atrial fibrillation with rapid ventricular response I48.91 Acute respiratory failure with hypoxia and hypercapnia J96.01; J96.02 Elevated troponin R77.8 Elevated blood pressure reading R03.0 Acute kidney injury N17.9
--- NOTE | 2022-08-29 09:26 | PC.NURSE ---
NUrse held morning dose of metoprolol due to heart rate. Heart rate is regularly in the low 60's, frequently going into the mid 50's while sleeping.
--- NOTE | 2022-08-29 10:21 | PC.SOCIAL ---
IMM update IMM updated with patient. Verbalized an understanding. Copy Pg 2 provided. Initialled, dated, timed, and placed in chart.
--- NOTE | 2022-08-29 10:55 | P.PN_ITS ---
Subjective Subjective: Denies any complaints, urine output picked up on room air, Medications: Reviewed: Yes Vitals/I&O/Wt Last Vital Signs Temp 98.1 F 08/29/22 08:00 Pulse 63 08/29/22 09:00 Resp 16 08/29/22 09:00 BP 132/86 08/29/22 09:00 Pulse Ox 96 08/29/22 09:00 O2 Del Method 08/29/22 08:00 O2 Flow Rate 2 08/27/22 23:30 FiO2 30 08/27/22 14:21 08/28/22 08/29/22 08/29/22 22:59 06:59 14:59 Intake Total 1406.667 / 1581.504 0 / 0942.783 8503 / 1800 Output Total 1200 / 1200 1100 / 2300 500 / 500 Balance 206.667 / 381.504 -1100 / -654.344 4552 / 1300 Weight last 48 hrs Weight 100.5 kg Weight 99 kg Physical Exam Narrative: Patient is awake, alert no acute distress HEENT, S1-S2 regular rate and rhythm per report Clear to auscultation per report 1+ pedal edema Urinary Catheter Management: Shirley: Cath Placed During This Visit: yes Reason for Continuing Indwelling Catheter: Accurate Measurement of Urinary Output in Critically Ill Patients Urinary Catheter Date of Insertion: 08/28/22 Urinary Catheter Time of Insertion: 16:48 Data 08/29/22 03:45 08/29/22 03:45 Micro: Microbiology 08/27/22 20:00 MRSA Culture - Final Nose 08/26/22 11:40 Gram Stain - Final Sputum - Endotracheal Tube Aspirate Sputum Culture - Final A&P Assessment and plan (1) Acute kidney injury: Plan 1. Acute kidney injury: Unknown creatinine baseline, creatinine on presentation was 1.5, currently at 5.9,. Creatinine plateaued. Etiology of PERCY likely hemodynamic changes due to rapid A-fib with fluctuating blood pressures, possibly have developed ATN. -Noted renal ultrasound results with no hydronephrosis but questionable abscess versus mass versus pyelo on ultrasound-CT scan showed hemorrhagic cyst, no abscess no mass. -,creatinine plateaued, urine output picked up, Expect renal function To improve. Watch for polyuria and maintain even fluid balance -status post bicarbonate drip, now switched to normal saline -Noted mildly elevated CK levels, follow trend. 2. Metabolic acidosis: s/p bicarbonate drip, follow closely, lactate normal. 3. Possible sepsis: ? Source of infection. Dosed vancomycin and Zosyn per GFR 4. Rhabdomyolysis: Mild, monitor CPK trend, continue bicarbonate drip 5. Thrombocytopenia: Mild, improved 6. NSTEMI 7. Diabetes Patient evaluated using audiovisual cart. Time spent 45 minutes Attestations Medical Necessity Statement*: Patient requires continued hospital stay for close monitoring and further management Coding Level of Care Code Acute Code for [facility] Diagnoses Acute kidney injury N17.9
--- NOTE | 2022-08-29 11:34 | PC.PHAR ---
Changed the patient's Levaquin dose to 500mg q48h due to continued declining renal function. Will continue to monitor this patient. Let us know if there is anything else that you need. Thanks, Ambrocio Salamanca, Pharm.D
--- NOTE | 2022-08-29 12:11 | PM.PN ---
Subjective Subjective: Patient was seen and examined this morning, serum creatinine is likely peaked, good urine output, metabolic acid resolved. Has been afebrile.Worked with physical therapy. Medications: Medication Review Details: Generic Name Dose Route Start Last Admin Trade Name Namita PRN Reason Stop Dose Admin Acetaminophen 650 mg 08/26/22 07:15 08/27/22 19:51 Acetaminophen 32 5 Mg Tablet PO 650 mg Q6H PRN Administration MILD PAIN Docusate Sodium 100 mg 08/26/22 09:00 08/28/22 08:35 Docusate Sodium 100 Mg Capsule PO 100 mg BID LIZZETTE Administration Heparin Sodium (Po rcine) 0 unit 08/28/22 00:14 08/28/22 01:22 Heparin 5,000 Un it/Ml Inj 1 Ml IV 4,500 unit PRN PRN Administration Heparin weight-ba se protocol Protocol Fentanyl 2,500 mcg / Sodium 250 mls @ 0 mls/h r 08/26/22 01:00 08/26/22 02:42 Chloride IV 50 mcg/hr .Q0M LIZZETTE 5 mls/hr Titration Protocol Per Protocol Sodium Bicarbonate 150 meq/ 1,150 mls @ 100 m ls/hr 08/28/22 07:15 08/28/22 08:35 Dextrose IV 100 mls/hr .[id number] LIZZETTE Administration Vancomycin/PEG/NAD A/Lysine/Water 1,500 mg in 300 m ls @ 200 mls/hr 08/28/22 09:00 08/28/22 09:41 Vancocin IV 200 mls/hr Q48H LIZZETTE Administration Insulin Human Lisp ro 0 unit 08/26/22 21:00 08/27/22 21:11 Insulin Lispro 1 00 Unit/1 Ml SUBCUT 1 unit BEDTIME LIZZETTE Administration Protocol Insulin Human Lisp ro 0 unit 08/26/22 08:00 08/28/22 11:12 Insulin Lispro 1 00 Unit/1 Ml SUBCUT 4 unit TIDWM LIZZETTE Administration Protocol Metoprolol Tartrat e 25 mg 08/28/22 10:00 08/28/22 11:11 Metoprolol Tartr ate 25 Mg Tablet PO 25 mg BID@0900,2100 LIZZETTE Administration Pantoprazole Sodiu m 40 mg 08/26/22 09:00 08/28/22 08:35 Pantoprazole 40 Mg Sdv IVP 40 mg DAILY LIZZETTE Administration Vitals/I&O/Wt Last Vital Signs Temp 98.1 F 08/29/22 08:00 Pulse 63 08/29/22 09:00 Resp 16 08/29/22 09:00 BP 132/86 08/29/22 09:00 Pulse Ox 96 08/29/22 09:00 O2 Del Method 08/29/22 08:00 O2 Flow Rate 2 08/27/22 23:30 FiO2 30 08/27/22 14:21 08/28/22 08/29/22 08/29/22 22:59 06:59 14:59 Intake Total 1406.667 / 1581.504 0 / 1735.241 5011 / 1800 Output Total 1200 / 1200 1100 / 2300 500 / 500 Balance 206.667 / 381.504 -1100 / -226.258 4385 / 1300 Weight last 48 hrs Weight 100.5 kg Weight 99 kg Physical Exam Narrative: AO*3 HENMT: COMMON NORMALS: normocephalic and atraumatic HEAD & SCALP: normocephalic and atraumatic Resp: COMMON NORMALS: clear to auscultation bilaterally AUSCULTATION: clear to auscultation bilaterally Cardio: COMMON NORMALS: regular rate, regular rhythm, S1 normal heart sound present, S2 normal heart sound present, No gallops present (Cardio), No murmurs present (Cardio), No rub (Cardio) and Peripheral pulses 2+ throughout RATE: regular rate RHYTHM: regular rhythm HEART SOUNDS: S1 normal heart sound present and S2 normal heart sound present PERIPHERAL PULSES: Peripheral pulses 2+ throughout GI: COMMON NORMALS: Normal to inspection, nondistended, normoactive bowel sounds present, Soft to palpation, non-tender, No hepatosplenomegaly present and no masses AUSCULTATION: Yes normoactive bowel sounds PALPATION: Yes Soft to palpation and Yes No hepatosplenomegaly present RECTAL EXAM: Yes deferred Extremity: COMMON NORMALS: no clubbing, cyanosis or edema and no pedal edema Urinary Catheter Management: Shirley: Cath Placed During This Visit: yes Reason for Continuing Indwelling Catheter: Accurate Measurement of Urinary Output in Critically Ill Patients Urinary Catheter Date of Insertion: 08/28/22 Urinary Catheter Time of Insertion: 16:48 Data 08/29/22 03:45 08/29/22 03:45 Micro: Microbiology 08/27/22 20:00 MRSA Culture - Final Nose 08/26/22 11:40 Gram Stain - Final Sputum - Endotracheal Tube Aspirate Sputum Culture - Final A&P Assessment and plan (1) Syncope: Associated with loss of consciousness. Specific etiology of event is unclear. Differential includes acute OK, CVA, thrombotic event, arrhythmia, medication effect, seizure, accidental trauma, among others. Lower extremity doppler vein : Negative for DVT CV carotid duplex BI: No flow limiting stenosis CT cervical spin wo con: No fracture. C.T head without Contrast : No acute intracranial pathology 2D Echo result appreciated Continue telemetry monitoring. (2) Acute respiratory failure with hypoxia and hypercapnia: When specifically asked patient does have a history of sleep apnea as he has a CPAP machine at home though he does not use it. No other known respiratory disease. He was hypoxic and hypercapnic at presentation necessitating intubation. s/p successful extubation. Currently saturating well on R/A (3) Atrial fibrillation with rapid ventricular response: Currently h/r is decently controlled Continue M.T :25 MG PO BID Will initiate heparin drip will switch to oral Ac on discharge. (4) Acidosis, lactic: Could be secondary to hypoxemia, does have leukocytosis and was initially tachycardic but has maintained blood pressures. Chest x-ray with some hazy opacities but no recent respiratory symptoms. (5) Acute kidney injury: PERCY on CKD: Possibly secondary to ATN precipitated by relative hypotension precipitated by sepsis. Patient is also chronically on meloxicam. Possible contribution from rhabdomyolysis. Baseline serum creatinine is unknown Admission serum creatinine was 2.1 Renal ultrasound: No hydronephrosis or cortical thinning. No renal atrophy. Random urine sodium: 46 Random urine creatinine:48 Random urine total protein: 23 FENA: 4% UPCR Monitor intake output charting. Was on bicarb drip has been switched to N.s Avoid nephrotoxic's Nephrology on board. (6) Hyperglycemia: Without a known history of diabetes Hba1C: 6.7 On SSI,monitor FSG (7) PTSD (post-traumatic stress disorder): On chronic sertraline and as needed hydralazine (8) Restless legs syndrome (RLS): On chronic tizanidine (9) Osteoarthritis: On chronic meloxicam (10) NSTEMI (non-ST elevated myocardial infarction): Likely NSTEMI type II: In the setting of A-fib with RVR and sepsis Troponin trend: 2D echo: Normal LV size and systolic function with LVEF of 72%, no RWMA, mild LVH, grade 1 diastolic dysfunction. Cardiology on board (11) Sepsis: Patient meets sepsis criteria: Has elevated white cell count , elevated lactic acid, fever, hypotension, Endorgan dysfunction in the form of PERCY, elevated troponin. Patient has received IV fluid bolus, to which he has responded appropriately. Blood culture:NTD MRSA PCR: Positive CT chest abdomen and pelvis without contrast: No acute pathology found. Urine culture: Sputum Gram stain and culture: Rare gram-positive cocci in pairs Currently empirically covered with broad-spectrum antibiotics (12) Thrombocytopenia: Patient platelet count on admission was:214 Current platelet count is:122 Differential diagnosis includes: Possibly secondary to sepsis, follow DIC panel:Negative peripheral smear evaluation for possible schistocytosis, for TTP initiate assessment, low clinical suspicion for HIT(4T Score ) , low clinical suspicion for ITP. Monitor platelet count for now. Currently has no active bleeding petechiae purpura. (13) Rhabdomyolysis: Continue IV hydration with bicarb drip Monitor CPK (14) Seizure: Possible seizure-like episode at home.Nothing noted during the hospital stay. Follow prolactin (I am not sure of its utility ) : 14 Continue monitoring for now may be neurology follow-up as outpatient. Attestations Medical Necessity Statement*: Needs to be in hospital for the management of PERCY. Critical Care Time: The high probability of a clinically significant, sudden or life threatening deterioration of the patient's [] system(s) required my full and direct attention, intervention and personal management. The critical care time is as shown. This time is in addition to time spent performing any reported procedures but includes the following: [x] Data and vital sign review and interpretation [x] Patient assessment, examination and intervention [x] Documentation [x] Medication orders and management Critical Care Time (min): 40 Coding Level of Care Code Critical Care >/= 30 minutes Diagnoses Syncope R55 Acute respiratory failure with hypoxia and hypercapnia J96.01; J96.02 Atrial fibrillation with rapid ventricular response I48.91 Acidosis, lactic E87.20 Acute kidney injury N17.9 Hyperglycemia R73.9 PTSD (post-traumatic stress disorder) F43.10 Restless legs syndrome (RLS) G25.81 Osteoarthritis M19.90 NSTEMI (non-ST elevated myocardial infarction) I21.4 Sepsis A41.9 Thrombocytopenia D69.6 Rhabdomyolysis M62.82 Seizure R56.9
[2022-08-29 12:12] LABS: Glucose Point of Care 137 mg/dL (70-110)
--- NOTE | 2022-08-29 12:32 | PC.NURSE ---
Patient is confused, He will answer person, place, time, and situation questions appropriately, but if you have a conversation with him it will become apparent that he is confused. Repeatedly asking the same questions, or repeatedly offering up the same information. Patient appears to be mentally slow. is at bedside and reports he is normally sharp as a tack .
[2022-08-29] MEDS: heparin drip 25,000 UNIT/500 ML PREMIX 28.14 UNIT IV (12:56)
[2022-08-29 16:42] LABS: Glucose Point of Care 132 mg/dL (70-110)
--- NOTE | 2022-08-29 17:45 | PC.NURSE ---
Shift SUmmary: Patient was up to a chair for about 6 hours today. Walked 200 feet with physical therapy. Mental status has improved compared to yesterday, but still is forgetful, and has some subtle confusion despite being able to answer orientation questions. Has been Normal sinus rhythm all day even though the morning metoprolol held due to heart rate. Urine output: 1750mL for 08/29/2022 day shift
--- NOTE | 2022-08-29 18:03 | ECG_ITS ---
[facility] Test Date: 2022-08-30 Pat Name: Kellie Jurado Department: Room: ICU04 Gender: Male [employer]: : 1955 Requested By: Stew Ambrose Order Number: [id number] Richard MD: Stew Ambrose M.D. Interpretive Statements NAME OF STUDY: LEXISCAN SESTAMIBI STRESS TEST INDICATION: afib/e;evated trop, PROCEDURE: At the baseline, the EKG revealed normal sinus rhythm with a normal ST Ts. The baseline heart was 62 bpm with a blood pressue of 147/94 mm of Hg Lexiscan was infused over a period of 20 seconds. A total of 0.4 milligrams of Lexiscan was infused. The stress phase was continued for a total of 5 minutes. Heart rate at the end of the stress phase was 89 bpm with a blood pressure 136/92 mm of Hg. The EKG at the peak infusion revealed no significant changes. Sestamibi was injected 20 seconds after the Lexiscan infusion. Heart rate at the end of the recovery phase was 90 bpm with a blood pressure of 137/87 mm of Hg. CONCLUSION: 1. No significant EKG changes with the LexiScan infusion 2. No LexiScan induced chest pain or cardiac arrhythmia 3. Normal blood pressure and heart rate response 4. Sestamibi/sestamibi perfusion scan pending; see separate report. Electronically Signed On 08-30-2022 17:54:02 CDT by Stew Ambrose M.D. [id number]
--- NOTE | 2022-08-29 18:06 | PC.NURSE ---
Stress test tomorrow. Diet changed to NPO at midnight.
[2022-08-29 19:57] LABS: Partial Thromboplastin Time 113.2 SECONDS (23.9-36.7)
[2022-08-29 20:10] LABS: Glucose Point of Care 179 mg/dL (70-110)
[2022-08-29] MEDS: metoprolol tartrate 25 mg Tablet PO (20:22)
[2022-08-29] MEDS: temazepam 15 mg Capsule PO (20:59)
--- NOTE | 2022-08-29 21:41 | PC.NURSE ---
Fentanyl is not running/not in pt room. MAR edited for 1900 08/29/22 to reflect that the Fentanyl is not running/is not in the room. Fentanyl order discontinued.
[2022-08-30] VITALS (25 sets, daily range): BP systolic 122–165; BP diastolic 76–96; PULSE 51–91; RESP 9–22; TEMP 36.7–36.8; O2SAT 91–97
[2022-08-30 03:04] LABS: INR 1.31 (0.8-1.2)
[2022-08-30 03:05] LABS: Fibrinogen 630 mg/dL (174-498)
[2022-08-30 03:21] LABS: Creatine Phosphokinase 1962 U/L (39-308)
[2022-08-30] MEDS: piperacillin-tazobactam 3.375 GM in sodium chloride 0.9% (plus) 50 ML IV ×2 (03:55→15:44)
[2022-08-30 05:10] LABS: Basophils % 0.4 %; Eosinophils # 0.1 10^3/uL (0.0-0.8); Eosinophils % 0.8 %; Hemoglobin 14.7 g/dL (11.7-16.6); Lymphocytes # 1.2 10^3/uL (0.8-4.8); Lymphocytes % 12.4 %; Mean Corpuscular Volume 88.6 fl (80-94); Mean Platelet Volume 9.9 fL (7.4-10.4); Monocytes # 0.9 10^3/uL (0.2-0.9); Monocytes % 9.5 %; Neutrophils # 7.57 10^3/uL (1.8-7.7); Neutrophils % 76.5 %; Nucleated Red Blood Cells % 0 %; Platelet Count 145 10^3/cmm (130-400); Red Blood Count 4.74 10^6/uL (4.1-5.3); Red Cell Distribution Width 12.6 % (12.1-15.1); White Blood Count 9.9 10^3/uL (4.0-10.0)
[2022-08-30 05:27] LABS: Anion Gap 22.6 (5-19); Blood Urea Nitrogen 62 mg/dL (8-23); Calcium 8.5 mg/dL (8.5-10.5); Carbon Dioxide 22 mmol/L (22-29); Chloride 103 mmol/L (98-107); Glomerular Filtration Rate 11.2 mL/min (90-130); Glucose 128 mg/dL (65-115); Osmolality Calculated 317 mOsm/kg (285-295); Potassium 3.6 mmol/L (3.5-5.1); Sodium 144 mmol/L (136-145)
[2022-08-30] MEDS: regadenoson 0.4 Mg/5 ml Syringe IVP (07:58)
[2022-08-30] MEDS: pantoprazole 40 mg SDV IVP (09:44)
[2022-08-30] MEDS: guaiFENesin 600 mg Tablet 1200 MG PO ×2 (09:44→17:16)
[2022-08-30] MEDS: docusate sodium 100 mg Capsule PO ×2 (09:44→17:16)
[2022-08-30] MEDS: insulin lispro 100 unit/1 mL SUBCUT (09:49)
[2022-08-30] MEDS: vancomycin 1,500 MG/300 ML PIGGYBACK 200 MG IV (09:49)
[2022-08-30 10:05] LABS: Glucose Point of Care 173 mg/dL (70-110)
[2022-08-30 12:13] LABS: Glucose Point of Care 133 mg/dL (70-110)
[2022-08-30] MEDS: heparin drip 25,000 UNIT/500 ML PREMIX 22 UNIT IV (12:47)
--- NOTE | 2022-08-30 12:52 | PM.PN ---
Subjective Subjective: no new complaints Medications: Reviewed: Yes Vitals/I&O/Wt Last Vital Signs Temp 98.0 F 08/30/22 10:00 Pulse 54 L 08/30/22 10:00 Resp 16 08/30/22 10:00 BP 142/81 08/30/22 10:00 Pulse Ox 95 08/30/22 10:00 O2 Del Method 08/30/22 10:00 O2 Flow Rate 2 08/27/22 23:30 FiO2 30 08/27/22 14:21 08/29/22 08/30/22 08/30/22 22:59 06:59 14:59 Intake Total 2316.268 / 4116.268 145.2 / 4261.468 169.4 / 169.4 Output Total 800 / 1750 1900 / 3650 Balance 1516.268 / 2366.268 -1754.8 / 611.468 169.4 / 169.4 Weight last 48 hrs Weight 99.926 kg Weight 100.5 kg Physical Exam Narrative: Patient is awake, alert no acute distress HEENT, S1-S2 regular rate and rhythm per report Clear to auscultation per report 1+ pedal edema Urinary Catheter Management: Shirley: Cath Placed During This Visit: yes Reason for Continuing Indwelling Catheter: Accurate Measurement of Urinary Output in Critically Ill Patients Urinary Catheter Date of Insertion: 08/28/22 Urinary Catheter Time of Insertion: 16:48 Data 08/30/22 02:29 08/30/22 02:29 A&P Assessment and plan (1) Acute kidney injury: Plan 1. Acute kidney injury: Unknown creatinine baseline, creatinine on presentation was 1.5, peaked 5.9,. Creatinine improved to 5.2 Etiology of PERCY likely hemodynamic changes due to rapid A-fib with fluctuating blood pressures, possibly have developed ATN. -Noted renal ultrasound results with no hydronephrosis but questionable abscess versus mass versus pyelo on ultrasound-CT scan showed hemorrhagic cyst, no abscess no mass. -Renal fxn improving , Expect renal function To improve back to baseline . Watch for polyuria and maintain even fluid balance . 2. Metabolic acidosis: s/p bicarbonate drip, follow closely, lactate normal. 3. Possible sepsis: ? Source of infection. Dosed vancomycin and Zosyn per GFR 4. Rhabdomyolysis: Mild, monitor CPK trend, s/p bicarbonate drip 5. Thrombocytopenia: Mild, improved 6. NSTEMI 7. Diabetes Patient evaluated using audiovisual cart. Time spent 45 minutes Attestations Medical Necessity Statement*: Patient requires continued hospital stay for close monitoring and further management Coding Level of Care Code Acute Code for Chg Fwd Diagnoses Acute kidney injury N17.9
--- NOTE | 2022-08-30 15:43 | PM.PN ---
Subjective Subjective: Patient was seen and examined this morning, SCR is trending down, good urine output, underwent nuclear stress test. Medications: Reviewed: Yes Medication Review Details: Generic Name Dose Route Start Last Admin Trade Name Namita PRN Reason Stop Dose Admin Acetaminophen 650 mg 08/26/22 07:15 08/27/22 19:51 Acetaminophen 32 5 Mg Tablet PO 650 mg Q6H PRN Administration MILD PAIN Docusate Sodium 100 mg 08/26/22 09:00 08/30/22 09:44 Docusate Sodium 100 Mg Capsule PO 100 mg BID LIZZETTE Administration Guaifenesin 1,200 mg 08/28/22 18:00 08/30/22 09:44 Guaifenesin 600 Mg Tablet PO 1,200 mg BID LIZZETTE Administration Piperacillin Sod/T azobactam 50 mls @ 12.5 mls /hr 08/28/22 16:00 08/30/22 11:06 Sod 3.375 gm/ So dium Chloride IV Infused Q12H LIZZETTE Infusion Protocol Heparin Sodium/Sod ium Chloride 25,000 unit in 50 0 mls @ 0 mls/hr 08/29/22 12:30 08/30/22 12:47 Heparin Drip IV 10.95 unit/kg/hr .Q0M LIZZETTE 22 mls/hr Administration Protocol Per Protocol Insulin Human Lisp ro 0 unit 08/26/22 21:00 08/29/22 20:23 Insulin Lispro 1 00 Unit/1 Ml SUBCUT 2 unit BEDTIME LIZZETTE Administration Protocol Insulin Human Lisp ro 0 unit 08/26/22 08:00 08/30/22 12:47 Insulin Lispro 1 00 Unit/1 Ml SUBCUT Not Given TIDWM [facility] Protocol Metoprolol Tartrat e 12.5 mg 08/30/22 09:30 08/30/22 11:06 Metoprolol Tartr ate 25 Mg Tablet PO Not Given BID@0900,2100 [facility] Pantoprazole Sodiu m 40 mg 08/26/22 09:00 08/30/22 09:44 Pantoprazole 40 Mg Sdv IVP 40 mg DAILY LIZZETTE Administration Temazepam 15 mg 08/29/22 16:58 08/29/22 20:59 Temazepam 15 Mg Capsule PO 15 mg BEDTIME PRN Administration INSOMNIA Vitals/I&O/Wt Last Vital Signs Temp 98.0 F 08/30/22 10:00 Pulse 54 L 03/31/23 14:00 Resp 14 08/30/22 14:00 BP 132/77 08/30/22 14:00 Pulse Ox 95 08/30/22 14:00 O2 Del Method 08/30/22 14:00 O2 Flow Rate 2 08/27/22 23:30 FiO2 30 08/27/22 14:21 08/30/22 08/30/22 08/30/22 06:59 14:59 22:59 Intake Total 145.2 / 4261.468 983.432 / 983.432 Output Total 1900 / 3650 1300 / 1300 Balance -1754.8 / 611.468 -316.568 / -316.568 Weight last 48 hrs Weight 99.926 kg Weight 100.5 kg Physical Exam Const: COMMON NORMALS: patient oriented x3 HENMT: COMMON NORMALS: normocephalic and atraumatic HEAD & SCALP: normocephalic and atraumatic Resp: COMMON NORMALS: clear to auscultation bilaterally EFFORT & INSPECTION: Yes symmetric chest movement AUSCULTATION: clear to auscultation bilaterally Cardio: COMMON NORMALS: regular rate, regular rhythm, S1 normal heart sound present, S2 normal heart sound present, No gallops present (Cardio), No murmurs present (Cardio), No rub (Cardio) and Peripheral pulses 2+ throughout RATE: regular rate RHYTHM: regular rhythm HEART SOUNDS: S1 normal heart sound present and S2 normal heart sound present PERIPHERAL PULSES: Peripheral pulses 2+ throughout GI: COMMON NORMALS: Normal to inspection, nondistended, normoactive bowel sounds present, Soft to palpation, non-tender, No hepatosplenomegaly present and no masses AUSCULTATION: Yes normoactive bowel sounds PALPATION: Yes Soft to palpation and Yes No hepatosplenomegaly present RECTAL EXAM: Yes deferred Extremity: COMMON NORMALS: no clubbing, cyanosis or edema and no pedal edema Neuro: COMMON NORMALS: patient oriented x3 Urinary Catheter Management: Shirley: Cath Placed During This Visit: yes Reason for Continuing Indwelling Catheter: Accurate Measurement of Urinary Output in Critically Ill Patients Urinary Catheter Date of Insertion: 08/28/22 Urinary Catheter Time of Insertion: 16:48 Data 08/30/22 02:29 08/30/22 02:29 A&P Assessment and plan (1) Syncope: Associated with loss of consciousness.? Specific etiology of event is unclear.? Differential includes acute ND, CVA, thrombotic event, arrhythmia, medication effect, seizure, accidental trauma, among others. Lower extremity doppler vein : Negative for DVT CV carotid duplex BI: No flow limiting stenosis CT cervical spin wo con: No fracture. C.T head without Contrast : No acute intracranial pathology 2D Echo result appreciated Continue telemetry monitoring. (2) Acute respiratory failure with hypoxia and hypercapnia: When specifically asked patient does have a history of sleep apnea as he has a CPAP machine at home though he does not use it.? No other known respiratory disease.? He was hypoxic and hypercapnic at presentation necessitating intubation. s/p successful extubation. Currently saturating well on R/A (3) Atrial fibrillation with rapid ventricular response: Continue M.T :12.5 MG PO BID Will initiate heparin drip will switch to oral Ac on discharge. (4) Acidosis, lactic: Could be secondary to hypoxemia, does have leukocytosis and was initially tachycardic but has maintained blood pressures.? Chest x-ray with some hazy opacities but no recent respiratory symptoms. (5) Acute kidney injury: PERCY on CKD: Possibly secondary to ATN precipitated by relative hypotension precipitated by sepsis. Patient is also chronically on meloxicam. Possible contribution from rhabdomyolysis. Baseline serum creatinine is unknown Admission serum creatinine was 2.1 Renal ultrasound:?No hydronephrosis or cortical thinning. No renal atrophy. Random urine sodium: 46 Random urine creatinine:48 Random urine total protein: 23 FENA: 4% UPCR Monitor intake output charting. Was on bicarb drip has been switched to N.s Avoid nephrotoxic's Nephrology on board. (6) Hyperglycemia: Without a known history of diabetes Hba1C: 6.7 On SSI,monitor FSG (7) PTSD (post-traumatic stress disorder): On chronic sertraline and as needed hydralazine (8) Restless legs syndrome (RLS): On chronic tizanidine (9) Osteoarthritis: On chronic meloxicam (10) NSTEMI (non-ST elevated myocardial infarction): Likely NSTEMI type II: In the setting of A-fib with RVR and sepsis Troponin trend: 2D echo: Normal LV size and systolic function with LVEF of 72%, no RWMA, mild LVH, grade 1 diastolic dysfunction. Nuclear Stress test : No evident ischemia noted. Cardiology on board (11) Sepsis: Patient meets sepsis criteria: Has elevated white cell count , elevated lactic acid, fever, hypotension, Endorgan dysfunction in the form of PERCY, elevated troponin. Patient has received IV fluid bolus, to which he has responded appropriately. Blood culture:NTD MRSA PCR: Positive CT chest abdomen and pelvis without contrast: No acute pathology found. Urine culture: Sputum Gram stain and culture: Rare gram-positive cocci in pairs Currently empirically covered with broad-spectrum antibiotics (12) Thrombocytopenia: Patient platelet count on admission was:214 Current platelet count is:122 Differential diagnosis includes: Possibly secondary to sepsis, follow DIC panel:Negative peripheral smear evaluation for possible schistocytosis, for TTP initiate assessment, low clinical suspicion for HIT(4T Score ) , low clinical suspicion for ITP. Monitor platelet count for now.? Currently has no active bleeding petechiae purpura. (13) Rhabdomyolysis: Continue IV hydration with bicarb drip Monitor CPK (14) Seizure: Possible seizure-like episode at home.Nothing noted during the hospital stay. Follow prolactin (I am not sure of its utility ) : 14 Continue monitoring for now may be neurology follow-up as outpatient. Attestations Medical Necessity Statement*: needs to be in hospital for the management of PERCY. Coding Level of Care Code 70542 Diagnoses Syncope R55 Acute respiratory failure with hypoxia and hypercapnia J96.01; J96.02 Atrial fibrillation with rapid ventricular response I48.91 Acidosis, lactic E87.20 Acute kidney injury N17.9 Hyperglycemia R73.9 PTSD (post-traumatic stress disorder) F43.10 Restless legs syndrome (RLS) G25.81 Osteoarthritis M19.90 NSTEMI (non-ST elevated myocardial infarction) I21.4 Sepsis A41.9 Thrombocytopenia D69.6 Rhabdomyolysis M62.82 Seizure R56.9
[2022-08-30 16:08] LABS: Partial Thromboplastin Time 61.9 SECONDS (23.9-36.7)
--- NOTE | 2022-08-30 16:24 | PC.NURSE ---
ptt done no change heparin at this time
[2022-08-30 17:16] LABS: Glucose Point of Care 120 mg/dL (70-110)
--- NOTE | 2022-08-30 18:03 | NMCV_ITS ---
NM kiana perf SPECT r/s* [id number] Kellie Jurado Age: 67 Gender: M : 1955 Exam Date: 08/30/2022 18:03 Ordering Phys: Stew Ambrose MD ([email or web address]) Technologist: STEPHANIE Johnson Exam Location: [facility] Indications: CHEST PAIN STRESS TEST Please see separate stress test report in [facility] for full findings IMAGE PROTOCOL Rest/Stress 1 Lexiscan Day Radiopharmaceutical Dose (mCi) Administration Site Administered by Rest: Tc-99m 10.9 IV STEPHANIE Nicholas Sestamibi Stress:Tc-99m 32.7 IV STEPHANIE Nicholas Sestamibi Rest: 30-Aug-2022 60 Discovery 630 Stress: 30-Aug-2022 30 Discovery 630 0.4mg Lexiscan. Supine position only as patient was unable to lay prone. SPECT RESULTS Technical Quality: Excellent Raw Data Analysis: Normal Image Corrections: No attenuation or motion correction applied Summed Stress Score: 0 Summed Rest Score: 0 Summed Difference Score: 0 PERFUSION FINDINGS Fairly uniform myocardial tracer uptake with no significant perfusion abnormalities FUNCTIONAL RESULTS (calculated via Gated SPECT) Stress Image LV EF (%): 85 Stress EDV (mL):84 TID: 0.82 Stress ESV (mL):13 FUNCTIONAL FINDINGS: Segmental wall motion analysis revealing no gross wall motion abnormalities IMPRESSIONS 1. Myocardial perfusion imaging revealing fairly uniform myocardial tracer uptake with no significant perfusion normalities. 2. Normal LV ejection fraction of 85%. 3. LV wall motion analysis revealing no gross wall motion normalities. 4. Normal LV volume. Low probability for coronary ischemia, based on the above findings Dr Stew Ambrose MD FACC (Electronically Signed) Final Date: 30 August 2022 10:58 S
[2022-08-30 21:41] LABS: Glucose Point of Care 122 mg/dL (70-110)
[2022-08-30] MEDS: temazepam 15 mg Capsule PO (21:52)
--- NOTE | 2022-08-30 21:56 | PC.NURSE ---
12.5 mg Metoprolol for 2100 Not Given, approved. Dr. Blankenship called and updated on pt HR 49-50's, irregular sinus lolis.
[2022-08-30 22:26] LABS: Partial Thromboplastin Time 85.2 SECONDS (23.9-36.7)
[2022-08-31] VITALS (25 sets, daily range): BP systolic 116–153; BP diastolic 74–109; PULSE 44–67; RESP 9–18; TEMP 36.9–37.1; O2SAT 90–97
[2022-08-31] MEDS: piperacillin-tazobactam 3.375 GM in sodium chloride 0.9% (plus) 50 ML IV (03:43)
[2022-08-31 05:15] LABS: Basophils % 0.5 %; Eosinophils # 0.2 10^3/uL (0.0-0.8); Eosinophils % 2.6 %; Hematocrit 39.8 % (42.0-52.0); Hemoglobin 13.9 g/dL (11.7-16.6); Lymphocytes # 1.5 10^3/uL (0.8-4.8); Lymphocytes % 19.6 %; Mean Corpuscular HGB Conc 34.9 g/dL (30.0-36.0); Mean Corpuscular Hemoglobin 31.2 pg (28.0-34.0); Mean Corpuscular Volume 89.2 fl (80-94); Mean Platelet Volume 9.6 fL (7.4-10.4); Monocytes # 0.9 10^3/uL (0.2-0.9); Monocytes % 11.4 %; Neutrophils # 4.88 10^3/uL (1.8-7.7); Neutrophils % 65.6 %; Nucleated Red Blood Cells % 0 %; Platelet Count 139 10^3/cmm (130-400); Red Blood Count 4.46 10^6/uL (4.1-5.3); Red Cell Distribution Width 12.3 % (12.1-15.1); White Blood Count 7.4 10^3/uL (4.0-10.0)
[2022-08-31 05:27] LABS: Partial Thromboplastin Time 61.5 SECONDS (23.9-36.7)
[2022-08-31 05:33] LABS: Anion Gap 16.4 (5-19); Blood Urea Nitrogen 61 mg/dL (8-23); Calcium 8.5 mg/dL (8.5-10.5); Carbon Dioxide 23 mmol/L (22-29); Chloride 106 mmol/L (98-107); Glomerular Filtration Rate 16.5 mL/min (90-130); Glucose 114 mg/dL (65-115); Osmolality Calculated 312 mOsm/kg (285-295); Potassium 3.4 mmol/L (3.5-5.1); Sodium 142 mmol/L (136-145)
[2022-08-31 05:36] LABS: Creatine Phosphokinase 749 U/L (39-308)
[2022-08-31 06:18] LABS: CKMB 1.4 ng/mL (0-10.4)
[2022-08-31 07:37] LABS: Glucose Point of Care 115 mg/dL (70-110)
[2022-08-31] MEDS: guaiFENesin 600 mg Tablet 1200 MG PO ×2 (08:13→17:09)
[2022-08-31] MEDS: pantoprazole 40 mg SDV IVP (08:13)
--- NOTE | 2022-08-31 08:17 | PC.NURSE ---
heart rate remains in rate of 40 metoprolol held at this time .. also had several loose bm last night and colace held. at bedside
[2022-08-31] MEDS: potassium chloride ER 20 mEq Tablet PO (08:47)
--- NOTE | 2022-08-31 09:50 | P.PN_ITS ---
Subjective Subjective: doing well Medications: Reviewed: Yes Vitals/I&O/Wt Last Vital Signs Temp 98.4 F 08/31/22 01:00 Pulse 47 L 08/31/22 08:00 Resp 9 L 08/31/22 08:00 BP 131/82 08/31/22 08:00 Pulse Ox 93 08/31/22 06:00 O2 Del Method 08/31/22 06:00 O2 Flow Rate 2 08/27/22 23:30 FiO2 30 08/27/22 14:21 08/30/22 08/31/22 08/31/22 22:59 06:59 14:59 Intake Total 980 / 1963.432 812.767 / 2776.199 300 / 300 Output Total 1200 / 2500 2200 / 4700 Balance -220 / -536.568 -1387.233 / -1923.801 300 / 300 Weight last 48 hrs Weight 97.795 kg Weight 99.926 kg Physical Exam Narrative: Patient is awake, alert no acute distress HEENT, S1-S2 regular rate and rhythm per report Clear to auscultation per report 1+ pedal edema Urinary Catheter Management: Shirley: Cath Placed During This Visit: yes Reason for Continuing Indwelling Catheter: Accurate Measurement of Urinary Output in Critically Ill Patients Urinary Catheter Date of Insertion: 08/28/22 Urinary Catheter Time of Insertion: 16:48 Data 08/31/22 04:53 08/31/22 04:53 Micro: Microbiology 08/26/22 08:55 Blood Culture - Final Blood NO GROWTH AFTER 5 DAYS 08/26/22 08:40 Blood Culture - Final Blood NO GROWTH AFTER 5 DAYS A&P Assessment and plan (1) Acute kidney injury: Plan 1. Acute kidney injury: Unknown creatinine baseline, creatinine on presenta tion was 1.5, peaked 5.9,. Creatinine improved to 5.2 Etiology of PERCY likely hemodynamic changes due to rapid A-fib with fluctuating blood pressures, possibly have developed ATN. -Noted renal ultrasound results with no hydronephrosis but questionable abscess versus mass versus pyelo on ultrasound-CT scan showed hemorrhagic cyst, no abscess no mass. -Renal fxn improving , Expect renal function To improve back to baseline . Watch for polyuria and maintain even fluid balance . 2. Metabolic acidosis: s/p bicarbonate drip, follow closely, lactate normal. 3. Possible sepsis: ? Source of infection. Dosed vancomycin and Zosyn per GFR 4. Rhabdomyolysis: Mild, monitor CPK trend, s/p bicarbonate drip 5. Thrombocytopenia: Mild, improved 6. NSTEMI 7. Diabetes Patient evaluated using audiovisual cart. Time spent 45 minutes Attestations Medical Necessity Statement*: can DC IN 1-2 DAYS Coding Level of Care Code Acute Code for [facility] Fwd Diagnoses Acute kidney injury N17.9
[2022-08-31 12:30] LABS: Glucose Point of Care 119 mg/dL (70-110)
[2022-08-31] MEDS: apixaban 5 mg Tablet PO ×2 (12:31→21:56)
--- NOTE | 2022-08-31 13:00 | P.PN_ITS ---
Subjective Subjective: Intubated, sedated, family at bedside. Feet mottled with cyanosis. Medications: Reviewed: Yes Vitals/I&O/Wt Last Vital Signs Temp 98.5 F 09/01/22 04:00 Pulse 151 H 09/01/22 12:15 Resp 18 09/01/22 12:15 BP 123/74 09/01/22 12:15 Pulse Ox 94 09/01/22 12:15 O2 Del Method 09/01/22 06:00 O2 Flow Rate 2 08/27/22 23:30 FiO2 30 08/27/22 14:21 08/31/22 09/01/22 09/01/22 22:59 06:59 14:59 Intake Total 350 / 1300 450 / 450 Output Total 1000 / 2800 1500 / 4300 1000 / 1000 Balance -650 / -1500 -1500 / -3000 -550 / -550 Weight last 48 hrs Weight 214 lb 1.76 oz Weight 215 lb 9.6 oz Physical Exam Narrative: Morbidly obese Resp: OTHER: Intubated Cardio: OTHER: Tachy Extremity: NARRATIVE EXTREMITY EXAM: Mottled, cyanotic Urinary Catheter Management: Shirley: Cath Placed During This Visit: yes Reason for Continuing Indwelling Catheter: Accurate Measurement of Urinary Outp ut in Critically Ill Patients Urinary Catheter Date of Insertion: 08/28/22 Urinary Catheter Time of Insertion: 16:48 Data 09/01/22 02:55 09/01/22 02:55 Micro: Microbiology 08/26/22 08:55 Blood Culture - Final Blood NO GROWTH AFTER 5 DAYS 08/26/22 08:40 Blood Culture - Final Blood NO GROWTH AFTER 5 DAYS A&P Assessment and plan (1) Type 2 acute myocardial infarction: (2) Tachycardia, unspecified: Due to tachcardia increase metoprolol. One time dose digoxin in the setting of PERCY to see how she responds to it. Foot warmers. If needed, obtain LE arterial duplex Plan as above Attestations Medical Necessity Statement*: Inpatient 2 [place] Coding Level of Care Code 03402 Diagnoses Type 2 acute myocardial infarction I21.A1 Tachycardia, unspecified R00.0 Time Spent (min) 30
--- NOTE | 2022-08-31 13:02 | PM.PN ---
Subjective Subjective: Patient was seen and examined this morning,overall he is doing better, was complaining of hiccups. SCR is trending down.Heparin drip has been discontinued and he has been transitioned to eliquis. Medications: Reviewed: Yes Medication Review Details: Generic Name Dose Route Start Last Admin Trade Name Freq PRN Reason Stop Dose Admin Acetaminophen 650 mg 08/26/22 07:15 08/27/22 19:51 Acetaminophen 32 5 Mg Tablet PO 650 mg Q6H PRN Administration MILD PAIN Apixaban 5 mg 08/31/22 12:00 08/31/22 12:31 Apixaban 5 Mg Ta blet PO 5 mg BID@0900,2100 COUNTS INCLUDE 234 BEDS AT THE [facility] Administration Docusate Sodium 100 mg 08/26/22 09:00 08/31/22 08:16 Docusate Sodium 100 Mg Capsule PO Not Given BID COUNTS INCLUDE 234 BEDS AT THE [facility] Guaifenesin 1,200 mg 08/28/22 18:00 08/31/22 08:13 Guaifenesin 600 Mg Tablet PO 1,200 mg BID LIZZETTE Administration Piperacillin Sod/T azobactam 50 mls @ 12.5 mls /hr 08/28/22 16:00 08/31/22 07:47 Sod 3.375 gm/ So dium Chloride IV Infused Q12H COUNTS INCLUDE 234 BEDS AT THE [facility] Infusion Protocol Insulin Human Lisp ro 0 unit 08/26/22 21:00 08/30/22 21:47 Insulin Lispro 1 00 Unit/1 Ml SUBCUT Not Given BEDTIME COUNTS INCLUDE 234 BEDS AT THE [facility] Protocol Insulin Human Lisp ro 0 unit 08/26/22 08:00 08/31/22 12:27 Insulin Lispro 1 00 Unit/1 Ml SUBCUT Not Given TIDWM COUNTS INCLUDE 234 BEDS AT THE [facility] Protocol Metoprolol Tartrat e 12.5 mg 08/30/22 09:30 08/31/22 08:16 Metoprolol Tartr ate 25 Mg Tablet PO Not Given BID@0900,2100 COUNTS INCLUDE 234 BEDS AT THE [facility] Pantoprazole Sodiu m 40 mg 08/31/22 09:00 08/31/22 08:[address] 40 Mg Tablet PO Not Given DAILY COUNTS INCLUDE 234 BEDS AT THE [facility] Temazepam 15 mg 08/29/22 16:58 08/30/22 21:52 Temazepam 15 Mg Capsule PO 15 mg BEDTIME PRN Administration INSOMNIA Vitals/I&O/Wt Last Vital Signs Temp 98.4 F 08/31/22 01:00 Pulse 53 L 08/31/22 12:00 Resp 18 08/31/22 12:00 BP 129/79 08/31/22 12:00 Pulse Ox 93 08/31/22 06:00 O2 Del Method 08/31/22 06:00 O2 Flow Rate 2 08/27/22 23:30 FiO2 30 08/27/22 14:21 08/30/22 08/31/22 08/31/22 22:59 06:59 14:59 Intake Total 980 / 1963.432 812.767 / 2776.199 300 / 300 Output Total 1200 / 2500 2200 / 4700 Balance -220 / -536.568 -1387.233 / -1923.801 300 / 300 Weight last 48 hrs Weight 97.795 kg Weight 99.926 kg Physical Exam Const: COMMON NORMALS: patient oriented x3 HENMT: COMMON NORMALS: normocephalic and atraumatic HEAD & SCALP: normocephalic and atraumatic Resp: COMMON NORMALS: clear to auscultation bilaterally EFFORT & INSPECTION: Yes symmetric chest movement AUSCULTATION: clear to auscultation bilaterally Cardio: COMMON NORMALS: regular rate, regular rhythm, S1 normal heart sound present, S2 normal heart sound present, No gallops present (Cardio), No murmurs present (Cardio), No rub (Cardio) and Peripheral pulses 2+ throughout RATE: regular rate RHYTHM: regular rhythm HEART SOUNDS: S1 normal heart sound present and S2 normal heart sound present PERIPHERAL PULSES: Peripheral pulses 2+ throughout GI: COMMON NORMALS: Normal to inspection, nondistended, normoactive bowel sounds present, Soft to palpation, non-tender, No hepatosplenomegaly present and no masses AUSCULTATION: Yes normoactive bowel sounds PALPATION: Yes Soft to palpation and Yes No hepatosplenomegaly present RECTAL EXAM: Yes deferred Extremity: COMMON NORMALS: no clubbing, cyanosis or edema and no pedal edema Neuro: COMMON NORMALS: patient oriented x3 Urinary Catheter Management: Shirley: Cath Placed During This Visit: yes Reason for Continuing Indwelling Catheter: Accurate Measurement of Urinary Output in Critically Ill Patients Urinary Catheter Date of Insertion: 08/28/22 Urinary Catheter Time of Insertion: 16:48 Data 08/31/22 04:53 08/31/22 04:53 Micro: Microbiology 08/26/22 08:55 Blood Culture - Final Blood NO GROWTH AFTER 5 DAYS 08/26/22 08:40 Blood Culture - Final Blood NO GROWTH AFTER 5 DAYS A&P Assessment and plan (1) Syncope: Associated with loss of consciousness.? Specific etiology of event is unclear.? Differential includes acute MS, CVA, thrombotic event, arrhythmia, medication effect, seizure, accidental trauma, among others. Lower extremity doppler vein : Negative for DVT CV carotid duplex BI: No flow limiting stenosis CT cervical spin wo con: No fracture. C.T head without Contrast : No acute intracranial pathology 2D Echo result appreciated Continue telemetry monitoring. (2) Acute respiratory failure with hypoxia and hypercapnia: When specifically asked patient does have a history of sleep apnea as he has a CPAP machine at home though he does not use it.? No other known respiratory disease.? He was hypoxic and hypercapnic at presentation necessitating intubation. s/p successful extubation. Currently saturating well on R/A (3) Atrial fibrillation with rapid ventricular response: Continue M.T :12.5 MG PO BID Will initiate heparin drip will switch to oral Ac on discharge. (4) Acidosis, lactic: Could be secondary to hypoxemia, does have leukocytosis and was initially tachycardic but has maintained blood pressures.? Chest x-ray with some hazy opacities but no recent respiratory symptoms. (5) Acute kidney injury: PERCY on CKD: Possibly secondary to ATN precipitated by relative hypotension precipitated by sepsis. Patient is also chronically on meloxicam. Possible contribution from rhabdomyolysis. Baseline serum creatinine is unknown Admission serum creatinine was 2.1 Renal ultrasound:?No hydronephrosis or cortical thinning. No renal atrophy. Random urine sodium: 46 Random urine creatinine:48 Random urine total protein: 23 FENA: 4% UPCR Monitor intake output charting. Was on bicarb drip has been switched to N.s Avoid nephrotoxic's Nephrology on board. (6) Hyperglycemia: Without a known history of diabetes Hba1C: 6.7 On SSI,monitor FSG (7) PTSD (post-traumatic stress disorder): On chronic sertraline and as needed hydralazine (8) Restless legs syndrome (RLS): On chronic tizanidine (9) Osteoarthritis: On chronic meloxicam (10) NSTEMI (non-ST elevated myocardial infarction): Likely NSTEMI type II: In the setting of A-fib with RVR and sepsis Troponin trend: 14-27-34 2D echo: Normal LV size and systolic function with LVEF of 72%, no RWMA, mild LVH, grade 1 diastolic dysfunction. Nuclear Stress test : No evident ischemia noted. Cardiology on board (11) Sepsis: Patient meets sepsis criteria: Has elevated white cell count , elevated lactic acid, fever, hypotension, Endorgan dysfunction in the form of PERCY, elevated troponin. Patient has received IV fluid bolus, to which he has responded appropriately. Blood culture:NTD MRSA PCR: Positive CT chest abdomen and pelvis without contrast: No acute pathology found. Urine culture: Sputum Gram stain and culture: Rare gram-positive cocci in pairs Currently empirically covered with broad-spectrum antibiotics (12) Thrombocytopenia: Patient platelet count on admission was:214 Current platelet count is:122 Differential diagnosis includes: Possibly secondary to sepsis, follow DIC panel:Negative peripheral smear evaluation for possible schistocytosis, for TTP initiate assessment, low clinical suspicion for HIT(4T Score ) , low clinical suspicion for ITP. Monitor platelet count for now.? Currently has no active bleeding petechiae purpura. (13) Rhabdomyolysis: Continue IV hydration with bicarb drip Monitor CPK (14) Seizure: Possible seizure-like episode at home.Nothing noted during the hospital stay. Follow prolactin (I am not sure of its utility ) : 14 Continue monitoring for now may be neurology follow-up as outpatient. Attestations Medical Necessity Statement*: needs to be in hospital for the management of PERCY.Need for monitoring of kidney function. Coding Level of Care Code 57944 Diagnoses Syncope R55 Acute respiratory failure with hypoxia and hypercapnia J96.01; J96.02 Atrial fibrillation with rapid ventricular response I48.91 Acidosis, lactic E87.20 Acute kidney injury N17.9 Hyperglycemia R73.9 PTSD (post-traumatic stress disorder) F43.10 Restless legs syndrome (RLS) G25.81 Osteoarthritis M19.90 NSTEMI (non-ST elevated myocardial infarction) I21.4 Sepsis A41.9 Thrombocytopenia D69.6 Rhabdomyolysis M62.82 Seizure R56.9
--- NOTE | 2022-08-31 13:04 | PM.PN ---
Subjective Subjective: Converted to NSR. Heparin off. Started on Eliquis. Unable to tolerate Metoprolol due to bradycardia, dose reduced. Medications: Reviewed: Yes Vitals/I&O/Wt Last Vital Signs Temp 98.5 F 09/01/22 04:00 Pulse 151 H 09/01/22 12:15 Resp 18 09/01/22 12:15 BP 123/74 09/01/22 12:15 Pulse Ox 94 09/01/22 12:15 O2 Del Method 09/01/22 06:00 O2 Flow Rate 2 08/27/22 23:30 FiO2 30 08/27/22 14:21 08/31/22 09/01/22 09/01/22 22:59 06:59 14:59 Intake Total 350 / 1300 450 / 450 Output Total 1000 / 2800 1500 / 4300 1000 / 1000 Balance -650 / -1500 -1500 / -3000 -550 / -550 Weight last 48 hrs Weight 214 lb 1.76 oz Weight 215 lb 9.6 oz Physical Exam HENMT: COMMON NORMALS: normocephalic HEAD & SCALP: normocephalic Resp: COMMON NORMALS: normal respiratory effort Cardio: COMMON NORMALS: regular rate RATE: regular rate Urinary Catheter Management: Shirley: Cath Placed During This Visit: yes Reason for Continuing Indwelling Catheter: Accurate Measurement of Urinary Output in Critically Ill Patients Urinary Catheter Date of Insertion: 08/28/22 Urinary Catheter Time of Insertion: 16:48 Data 09/01/22 02:55 09/01/22 02:55 Micro: Microbiology 08/26/22 08:55 Blood Culture - Final Blood NO GROWTH AFTER 5 DAYS 08/26/22 08:40 Blood Culture - Final Blood NO GROWTH AFTER 5 DAYS A&P Assessment and plan (1) Syncope: (2) Atrial fibrillation with rapid ventricular response: Plan Continue monitoring on adjusted medical therapy Attestations Medical Necessity Statement*: Req 2 [place] Coding Level of Care Code 43347 Diagnoses Syncope R55 Atrial fibrillation with rapid ventricular response I48.91 Time Spent (min) 30
--- NOTE | 2022-08-31 13:20 | PC.SOCIAL ---
Imm update Imm updated with patient at bedside. Copy of page 2 explained, patient verbalized understanding. Copy in chart initialed, dated and timed.
[2022-08-31 17:05] LABS: Glucose Point of Care 140 mg/dL (70-110)
[2022-08-31 21:52] LABS: Glucose Point of Care 130 mg/dL (70-110)
[2022-08-31] MEDS: temazepam 15 mg Capsule PO (21:56)
--- NOTE | 2022-08-31 21:59 | PC.NURSE ---
Metoprolol 12.5 mg Not Given, contraindicated per vital sings. HR irregular SB, dropping to the 40's.
[2022-09-01] VITALS (73 sets, daily range): BP systolic 102–172; BP diastolic 71–103; PULSE 47–167; RESP 11–34; TEMP 36.6–36.9; O2SAT 88–98
[2022-09-01 04:13] LABS: Basophils # 0.1 10^3/uL (0.0-0.1); Basophils % 0.7 %; Eosinophils # 0.2 10^3/uL (0.0-0.8); Eosinophils % 3.2 %; Hematocrit 42.1 % (42.0-52.0); Hemoglobin 14.8 g/dL (11.7-16.6); Lymphocytes # 1.4 10^3/uL (0.8-4.8); Lymphocytes % 18.1 %; Mean Corpuscular HGB Conc 35.2 g/dL (30.0-36.0); Mean Corpuscular Hemoglobin 31.1 pg (28.0-34.0); Mean Corpuscular Volume 88.4 fl (80-94); Mean Platelet Volume 9.8 fL (7.4-10.4); Monocytes % 13.2 %; Neutrophils % 64.4 %; Nucleated Red Blood Cells % 0 %; Platelet Count 128 10^3/cmm (130-400); Red Blood Count 4.76 10^6/uL (4.1-5.3); Red Cell Distribution Width 12.2 % (12.1-15.1); White Blood Count 7.5 10^3/uL (4.0-10.0)
[2022-09-01 04:33] LABS: Blood Urea Nitrogen 50 mg/dL (8-23); Calcium 8.8 mg/dL (8.5-10.5); Carbon Dioxide 23 mmol/L (22-29); Chloride 99 mmol/L (98-107); Glucose 117 mg/dL (65-115); Osmolality Calculated 288 mOsm/kg (285-295); Sodium 132 mmol/L (136-145)
[2022-09-01 05:02] LABS: Anion Gap 13.1 (5-19); Potassium 3.1 mmol/L (3.5-5.1)
[2022-09-01] MEDS: chlorPROMazine 25 mg Tablet PO (07:34)
[2022-09-01 07:35] LABS: Glucose Point of Care 118 mg/dL (70-110)
[2022-09-01] MEDS: amlodipine 5 mg Tablet PO (08:24)
[2022-09-01] MEDS: pantoprazole DR 40 mg Tablet PO (08:24)
[2022-09-01] MEDS: potassium chloride ER 20 mEq Tablet 40 MEQ PO (08:24)
[2022-09-01] MEDS: apixaban 5 mg Tablet PO (08:24)
[2022-09-01] MEDS: guaiFENesin 600 mg Tablet 1200 MG PO ×2 (08:24→17:41)
--- NOTE | 2022-09-01 08:43 | PC.NURSE ---
Dr Diaz here metoprolol po not given per heart rate remains below 50
[2022-09-01 09:14] LABS: Vancomycin Trough 7.4 ug/mL (10-15)
--- NOTE | 2022-09-01 09:47 | PM.DCS ---
Discharge Providers Date of Admission: 08/26/22 07:28 Date of Discharge: September 01, 2022 Attending Provider at Admission: Sabrina Yoon MD Attending Provider at Discharge: Cade Diaz MD Diagnoses at Discharge Discharge Diagnosis (1) Syncope: Status: Acute (2) Acute respiratory failure with hypoxia and hypercapnia: Status: Acute (3) Atrial fibrillation with rapid ventricular response: Status: Acute (4) Acidosis, lactic: Status: Acute (5) Acute kidney injury: Status: Acute (6) Hyperglycemia: Status: Acute (7) PTSD (post-traumatic stress disorder): Status: Chronic (8) Restless legs syndrome (RLS): Status: Chronic (9) Osteoarthritis: Status: Chronic (10) NSTEMI (non-ST elevated myocardial infarction): Status: Acute (11) Sepsis: Status: Acute (12) Thrombocytopenia: Status: Acute (13) Rhabdomyolysis: Status: Acute (14) Seizure: Status: Acute Reason for Visit Reason for Visit: agonal breathing Physical Exam Urinary Catheter Management: Shirley: Cath Placed During This Visit: yes Reason for Continuing Indwelling Catheter: Accurate Measurement of Urinary Output in Critically Ill Patients Urinary Catheter Date of Insertion: 08/28/22 Urinary Catheter Time of Insertion: 16:48 Discharge Data Studies Completed and Pending Completed Studies During Hospitalization Category Date Time Status CT cervical spin wo con* [id number] Stat Cat Scan 08/26/22 01:[address] chest abdomen pelvis [[place] [id number] Cat Scan 08/28/22 08:04 Completed ] Routine CT head wo con* [id number] Stat Cat Scan 08/26/22 00:53 Completed CXRP [XR chest 1V portable [id number]] Routine Exams 08/27/22 09:22 Completed Cardiac Stress Test MIBI [Sestamibi Stress Test Request Exams 08/29/22 18:03 Completed ] Routine XR chest 1V portable [id number] Stat Exams 08/26/22 01:02 Completed NM kiana perf SPECT r/s* [id number] Routine Nuc Med 08/30/22 18:03 Completed CV carotid duplex BI* [id number] Routine Ultrasound 08/26/22 07:56 Completed CV. echo complete* [id number] Routine Ultrasound 08/26/22 07:20 Completed US renal BI* [id number] Routine Ultrasound 08/27/22 13:00 Completed US venous duplex lower extremity bilat [CV venous Ultrasound 08/26/22 13:22 [place] [id number]] Routine Pending at discharge Category Date Time Status BMP [Basic Metabolic Panel] AM LABS Lab 09/02/22 04:00 Ordered CBC Auto Diff [Complete Blood Count w/Auto] AM LABS Lab 09/02/22 04:00 Ordered Platelet Count Q2D Lab 09/02/22 04:00 Ordered Radiology Impressions Head CT 08/26/22 00:53 IMPRESSION: 1. No acute infarct or hemorrhage. 2. No calvarial or skull base fracture. Cervical Spine CT 08/26/22 01:02 IMPRESSION: No fracture. Chest X-Ray 08/27/22 09:22 IMPRESSION: 1. No acute cardiopulmonary finding. 2. ET tube and NG tube both in satisfactory position. Renal Ultrasound 08/27/22 13:00 IMPRESSION: 1. No hydronephrosis or cortical thinning. No renal atrophy. 2. Interruption of the normal sinus fat in the RIGHT kidney. This may be normal for this patient but should be further evaluated by CT. CT is pending. Differential would include abscess, mass or pyelonephritis. Chest/Abdomen/Pelvis CT 08/28/22 08:04 IMPRESSION: No infectious source identified within the chest. IMPRESSION: No infectious source identified within the abdomen/pelvis. COMMENTS: Consistent with the [employer] [place] [employer]'s Incidental Findings Committee white paper (J Am Hamida Radiol 2018): Any incidental renal lesion less than 1 cm or classified as too small to characterize, or any incidental cystic renal lesion characterized as simple-appearing, is likely benign. No follow-up imaging is recommended for these lesions per consensus recommendations based on imaging criteria. Laboratory Results WBC 7.5 10^3/uL (4.0-10.0) 09/01/22 02:55 Corrected WBC Cancelled 08/27/22 03:09 RBC 4.76 10^6/uL (4.1-5.3) 09/01/22 02:55 Hgb 14.8 g/dL (11.7-16.6) 09/01/22 02:55 Hct 42.1 % (42.0-52.0) 09/01/22 02:55 MCV 88.4 fl (80-94) 09/01/22 02:55 MCH 31.1 pg (28.0-34.0) 09/01/22 02:55 MCHC 35.2 g/dL (30.0-36.0) 09/01/22 02:55 RDW 12.2 % (12.1-15.1) 09/01/22 02:55 Plt Count 128 10^3/cmm (130-400) L 09/01/22 02:55 MPV 9.8 fL (7.4-10.4) 09/01/22 02:55 Gran % Cancelled 08/27/22 03:09 Neut % (Auto) 64.4 % 09/01/22 02:55 Lymph % (Auto) 18.1 % 09/01/22 02:55 [place] % (Auto) 13.2 % 09/01/22 02:55 Eos % (Auto) 3.2 % 09/01/22 02:55 Baso % (Auto) 0.7 % 09/01/22 02:55 Neut # (Auto) 4.80 10^3/uL (1.8-7.7) 09/01/22 02:55 Lymph # (Auto) 1.4 10^3/uL (0.8-4.8) 09/01/22 02:55 [place] # (Auto) 1.0 10^3/uL (0.2-0.9) H 09/01/22 02:55 Eos # (Auto) 0.2 10^3/uL (0.0-0.8) 09/01/22 02:55 Baso # (Auto) 0.1 10^3/uL (0.0-0.1) 09/01/22 02:55 Absolute Gran (auto) Cancelled 08/27/22 03:09 Nucleated RBC % (auto) 0 % 09/01/22 02:55 Nucleated RBCs # 0.0 /100WBC 09/01/22 02:55 PT 16.70 SECONDS (12.1-14.9) H 08/30/22 02:29 INR 1.31 (0.8-1.2) H 08/30/22 02:29 APTT 61.5 SECONDS (23.9-36.7) H 08/31/22 04:53 Fibrinogen 630 mg/dL (174-498) H 08/30/22 02:29 Fibrin Degrad Products Pos, 10-40 ug/mL (NEG) H 08/30/22 02:29 D-Dimer 0.62 ug/mIFEU (0-0.59) H 08/26/22 00:55 Specimen Type Arterial 08/28/22 03:41 Sample Site Radial, right 08/28/22 03:41 ABG pH 7.36 (7.35-7.45) 08/28/22 03:41 ABG pCO2 34.0 mmHg (35-45) L 08/28/22 03:41 ABG pO2 72.1 mmHg (80.0-100.0) L 08/28/22 03:41 ABG HCO3 19.1 mmol/L (22-26) L 08/28/22 03:41 ABG O2 Saturation 96.2 08/28/22 03:41 ABG Base Excess -5.5 mmol/L (-2.0-2.0) L 08/28/22 03:41 Luis Fernando Test Pos 08/28/22 03:41 A-a O2 Gradient 4.7 mmHg (5-10) L 08/28/22 03:41 Hematocrit 45.2 % (42-52) 08/28/22 03:41 Hgb O2 Saturation 94.4 % (95-100) L 08/28/22 03:41 Carboxyhemoglobin 1.7 %THgb (0.4-20.1) 08/28/22 03:41 Methemoglobin 0.2 % (0.4-1.5) L 08/28/22 03:41 Total Hemoglobin 14.8 g/dL (14-18) 08/28/22 03:41 Sodium 137.0 mmol/L (131-143) 08/28/22 03:41 Potassium 4.0 mmol/L (3.5-5.0) 08/28/22 03:41 Glucose 174.0 mg/dL (70-115) H 08/28/22 03:41 Ionized Calcium 1.1 mmol/L (1.1-1.4) 08/28/22 03:41 O2 Delivery Device None 08/28/22 03:41 FiO2 21.0 % 08/28/22 03:41 Tidal Volume 0.45 08/27/22 04:00 PEEP 8.0 cmH20 08/27/22 04:00 It Operations Manager ID Alewe 08/28/22 03:41 Sodium 132 mmol/L (136-145) L 09/01/22 02:55 Potassium 3.1 mmol/L (3.5-5.1) L 09/01/22 02:55 Chloride 99 mmol/L (98-107) 09/01/22 02:55 Carbon Dioxide 23 mmol/L (22-29) 09/01/22 02:55 Anion Gap 13.1 (5-19) 09/01/22 02:55 BUN 50 mg/dL (8-23) H 09/01/22 02:55 Creatinine 2.5 mg/dL (0.7-1.2) H 09/01/22 02:55 GFR Calculation 26.0 mL/min (90-130) L 09/01/22 02:55 Glucose 117 mg/dL (65-115) H 09/01/22 02:55 POC Glucose 118 mg/dL (70-110) H 09/01/22 07:32 Estimat Average Glucose 146 08/26/22 07:41 Hemoglobin A1c 6.7 % (4.0-6.0) H 08/26/22 07:41 Calculated Osmolality 288 mOsm/kg (285-295) 09/01/22 02:55 Lactate 1.8 mmol/L (0.5-2.2) 08/28/22 07:50 Calcium 8.8 mg/dL (8.5-10.5) 09/01/22 02:55 Magnesium 2.2 mg/dL (1.7-2.3) 08/29/22 03:45 Total Bilirubin 0.8 mg/dL (0.15-1.2) 08/29/22 03:45 AST 60 U/L (0-40) H 08/29/22 03:45 ALT 20 U/L (0-41) 08/29/22 03:45 Alkaline Phosphatase 75 U/L (40-130) 08/29/22 03:45 Creatine Kinase 749 U/L (39-308) H* 08/31/22 04:53 CK-MB (CK-2) 1.4 ng/mL (0-10.4) 08/31/22 04:53 CK-MB (CK-2) Rel Index % (0.0-5.3) 08/31/22 04:53 Troponin T Baseline 14 ng/L (0-15) 08/26/22 00:55 Troponin T 120 Minute 27.62 ng/L (0-15) H 08/26/22 05:05 Delta Troponin T 13.62 ABS# (0-10) H* 08/26/22 05:05 Troponin T Hi Sens 6Hr 34.65 ng/L (0-15) H 08/26/22 07:01 Troponin T Hi Sens 6Hr Delta 20.65 ng/L (0-12) H* 08/26/22 07:01 NT-Pro-B Natriuret Pep 105 pg/mL (0-125) 08/26/22 00:55 Total Protein 6.0 g/dL (6.6-8.7) L 08/29/22 03:45 Albumin 3.2 g/dL (3.5-5.2) L 08/29/22 03:45 Globulin 2.8 g/dL (1.3-4.6) 08/29/22 03:45 Triglycerides 265 mg/dL (0-150) H 08/26/22 07:41 Cholesterol 185 mg/dL (0-200) 08/26/22 07:41 LDL Cholesterol, Calc 99 mg/dL (50-129) 08/26/22 07:41 HDL Cholesterol 33 mg/dL (60-100) L 08/26/22 07:41 LDL/HDL Ratio 3.00 RATIO (0.00-3.22) 08/26/22 07:41 Cholesterol/HDL Ratio 5.61 mg/dL (1.0-5.00) H 08/26/22 07:41 TSH 9.22 uIU/mL (0.27-4.20) H 08/26/22 00:55 Free T4 0.98 ng/dL (0.82-1.77) 08/26/22 07:41 Free T3 3.2 PG/ML (2.0-4.4) 08/26/22 07:41 Prolactin 14.94 ng/mL (4.0-15.2) 08/29/22 03:45 Urine Color Yellow (Yellow) 08/26/22 00:58 Urine Appearance Clear (CLEAR) 08/26/22 00:58 Urine pH 5 (5-7) 08/26/22 00:58 Ur Specific [place] 1.020 (1.005-1.030) 08/26/22 00:58 Urine Protein 1+ (Negative) H 08/26/22 00:58 Urine Glucose (UA) Norm (Normal) 08/26/22 00:58 Urine Ketones 1+ (Negative) H 08/26/22 00:58 Urine Blood 3+ (Negative) H 08/26/22 00:58 Urine Nitrate Negative (Negative) 08/26/22 00:58 Urine Bilirubin Neg (Negative) 08/26/22 00:58 Urine Urobilinogen Neg mg/dL (Negative) 08/26/22 00:58 Ur Leukocyte Esterase Negative (Negative) 08/26/22 00:58 Urine RBC 0-4 /hpf (0-2) H 08/26/22 00:58 Urine WBC 0-4 /hpf (0-5) H 08/26/22 00:58 Ur Squamous Epith Cells 0-4 /hpf (0-5) H 08/26/22 00:58 Amorphous Sediment Not Reportable 08/26/22 00:58 Urine Bacteria None /hpf (NONE) 08/26/22 00:58 U Random Total Protein 23 mg/dL 08/28/22 17:05 Ur Random Sodium 46 mmol/L 08/28/22 17:05 Ur Random Chloride 28 mmol/L 08/28/22 17:05 Urine Creatinine 48 mg/dL (39-259) 08/28/22 17:05 Vancomycin Trough 7.4 ug/mL (10-15) L 09/01/22 08:22 Urine Opiates Screen Negative ng/mL (Negative) 08/26/22 00:58 Ur Barbiturates Screen Negative ng/mL (Negative) 08/26/22 00:58 Ur Phencyclidine Scrn Negative ng/mL (Negative) 08/26/22 00:58 Ur Amphetamines Screen Negative ng/mL (Negative) 08/26/22 00:58 U Benzodiazepines Scrn Negative ng/mL (Negative) 08/26/22 00:58 Urine Cocaine Screen Negative ng/mL (Negative) 08/26/22 00:58 U Marijuana (THC) Screen Negative ng/mL (Negative) 08/26/22 00:58 Ethyl Alcohol < 10 mg/dL (0-10) 08/26/22 00:55 Vitals Last Vital Signs Temp 98.5 F 09/01/22 04:00 Pulse 53 L 09/01/22 08:00 Resp 19 H 09/01/22 08:00 BP 128/77 09/01/22 08:00 Pulse Ox 95 09/01/22 06:00 O2 Del Method 09/01/22 06:00 O2 Flow Rate 2 08/27/22 23:30 FiO2 30 08/27/22 14:21 Discharge Plan Discharge Patient Disposition: Home Health Service Condition: Stable Prescriptions: New amlodipine 5 mg Tablet 5 mg PO DAILY 30 Days Qty: 30 3RF chlorpromazine 25 mg Tablet 25 mg PO Q6H PRN (Reason: Agitation) 14 Days Qty: 20 0RF Eliquis 5 mg Tablet 5 mg PO BID@0900,2100 30 Days Qty: 60 2RF temazepam 15 mg Capsule 15 mg PO BEDTIME PRN (Reason: Insomnia) 30 Days Qty: 30 0RF Continued tizanidine 4 mg Tablet 4 mg PO BEDTIME PRN (Reason: Muscle Pain) hydroxyzine HCl 25 mg Tablet 25 mg PO BEDTIME PRN (Reason: Anxiety) Zoloft 50 mg Tablet 25 mg PO DAILY Discontinued meloxicam 15 mg Tablet 15 mg PO DAILY Discharge Orders: Discharge Order (Routine); Ordered 09/01/22 Ordered By: Cade Diaz Other Ambulatory Orders: Basic Metabolic Panel (Routine) Timeframe: 1 Week Facility: [facility] - Location: Lab - Main Lab Ordered By: Cade Diaz DME: Don (Order) Location: None Selected Ordered By: Cade Diaz Patient Instructions: Chlorpromazine (By mouth), Amlodipine (By mouth), Apixaban (By mouth), Opioid Safety Coding Level of Care Code Acute Code for Chg Fwd Diagnoses Syncope R55 Acute respiratory failure with hypoxia and hypercapnia J96.01; J96.02 Atrial fibrillation with rapid ventricular response I48.91 Acidosis, lactic E87.20 Acute kidney injury N17.9 Hyperglycemia R73.9 PTSD (post-traumatic stress disorder) F43.10 Restless legs syndrome (RLS) G25.81 Osteoarthritis M19.90 NSTEMI (non-ST elevated myocardial infarction) I21.4 Sepsis A41.9 Thrombocytopenia D69.6 Rhabdomyolysis M62.82 Seizure R56.9
[2022-09-01] MEDS: dilTIAZem 5 mg/mL SDV 5 mL 10 MG IVP ×2 (10:07→11:04)
--- NOTE | 2022-09-01 10:17 | PC.NURSE ---
went into afib rate 140s and 150 doctor notified and cardizem iv given as per order monitor vs and rate
[2022-09-01] MEDS: metoprolol tartrate 25 mg Tablet PO (11:04)
[2022-09-01 11:26] LABS: Glucose Point of Care 162 mg/dL (70-110)
--- NOTE | 2022-09-01 11:27 | PC.NURSE ---
remains in afib repeat cardizem and po metoprolol given as per order
--- NOTE | 2022-09-01 12:20 | P.PN_ITS ---
Subjective Subjective: Patient was seen and examined this morning,went into a.fib with rvr with rate in 130s got 2 doses of cardizem 10 mg I.V as well as one dose 25 po metoprolol. Later he was started on flecainide by cardiology. Medications: Reviewed: Yes Medication Review Details: Generic Name Dose Route Start Last Admin Trade Name Freq PRN Reason Stop Dose Admin Acetaminophen 650 mg 08/26/22 07:15 08/27/22 19:51 Acetaminophen 32 5 Mg Tablet PO 650 mg Q6H PRN Administration MILD PAIN Apixaban 5 mg 08/31/22 12:00 08/31/22 12:31 Apixaban 5 Mg Ta blet PO 5 mg BID@0900,2100 [facility] Administration Docusate Sodium 100 mg 08/26/22 09:00 08/31/22 08:16 Docusate Sodium 100 Mg Capsule PO Not Given BID [facility] Guaifenesin 1,200 mg 08/28/22 18:00 08/31/22 08:13 Guaifenesin 600 Mg Tablet PO 1,200 mg BID LIZZETTE Administration Piperacillin Sod/T azobactam 50 mls @ 12.5 mls /hr 08/28/22 16:00 08/31/22 07:47 Sod 3.375 gm/ So dium Chloride IV Infused Q12H [facility] Infusion Protocol Insulin Human Lisp ro 0 unit 08/26/22 21:00 08/30/22 21:47 Insulin Lispro 1 00 Unit/1 Ml SUBCUT Not Given BEDTIME [facility] Protocol Insulin Human Lisp ro 0 unit 08/26/22 08:00 08/31/22 12:27 Insulin Lispro 1 00 Unit/1 Ml SUBCUT Not Given TIDWM [facility] Protocol Metoprolol Tartrat e 12.5 mg 08/30/22 09:30 08/31/22 08:16 Metoprolol Tartr ate 25 Mg Tablet PO Not Given BID@0900,2100 [facility] Pantoprazole Sodiu m 40 mg 08/31/22 09:00 08/31/22 08:[address] 40 Mg Tablet PO Not Given DAILY [facility] Temazepam 15 mg 08/29/22 16:58 08/30/22 21:52 Temazepam 15 Mg Capsule PO 15 mg BEDTIME PRN Administration INSOMNIA Vitals/I&O/Wt Last Vital Signs Temp 98.5 F 09/01/22 04:00 Pulse 134 H 09/01/22 10:15 Resp 21 H 09/01/22 10:15 BP 116/95 09/01/22 10:15 Pulse Ox 93 09/01/22 10:15 O2 Del Method 09/01/22 06:00 O2 Flow Rate 2 08/27/22 23:30 FiO2 30 08/27/22 14:21 08/31/22 09/01/22 09/01/22 22:59 06:59 14:59 Intake Total 350 / 1300 450 / 450 Output Total 1000 / 2800 1500 / 4300 1000 / 1000 Balance -650 / -1500 -1500 / -3000 -550 / -550 Weight last 48 hrs Weight 97.119 kg Weight 97.795 kg Physical Exam Const: COMMON NORMALS: patient oriented x3 HENMT: COMMON NORMALS: normocephalic and atraumatic HEAD & SCALP: normocephalic and atraumatic Resp: COMMON NORMALS: clear to auscultation bilaterally EFFORT & INSPECTION: Yes symmetric chest movement AUSCULTATION: clear to auscultation bilaterally Cardio: COMMON NORMALS: Peripheral pulses 2+ throughout PERIPHERAL PULSES: Peripheral pulses 2+ throughout OTHER: Irregularly irregular rhythm ,S1-S2 variable intensity GI: COMMON NORMALS: Normal to inspection, nondistended, normoactive bowel sounds present, Soft to palpation, non-tender, No hepatosplenomegaly present and no masses AUSCULTATION: Yes normoactive bowel sounds PALPATION: Yes Soft to palpation and Yes No hepatosplenomegaly present RECTAL EXAM: Yes deferred Extremity: COMMON NORMALS: no clubbing, cyanosis or edema and no pedal edema Neuro: COMMON NORMALS: patient oriented x3 Urinary Catheter Management: Shirley: Cath Placed During This Visit: yes Reason for Continuing Indwelling Catheter: Accurate Measurement of Urinary Output in Critically Ill Patients Urinary Catheter Date of Insertion: 08/28/22 Urinary Catheter Time of Insertion: 16:48 Data 09/01/22 02:55 09/01/22 02:55 Micro: Microbiology 08/26/22 08:55 Blood Culture - Final Blood NO GROWTH AFTER 5 DAYS 08/26/22 08:40 Blood Culture - Final Blood NO GROWTH AFTER 5 DAYS A&P Assessment and plan (1) Syncope: Associated with loss of consciousness.? Specific etiology of event is unclear.? Differential includes acute OH, CVA, thrombotic event, arrhythmia, medication effect, seizure, accidental trauma, among others. Lower extremity doppler vein : Negative for DVT CV carotid duplex BI: No flow limiting stenosis CT cervical spin wo con: No fracture. C.T head without Contrast : No acute intracranial pathology 2D Echo result appreciated Continue telemetry monitoring. (2) Acute respiratory failure with hypoxia and hypercapnia: When specifically asked patient does have a history of sleep apnea as he has a CPAP machine at home though he does not use it.? No other known respiratory disease.? He was hypoxic and hypercapnic at presentation necessitating intubation. s/p successful extubation. Currently saturating well on R/A (3) Atrial fibrillation with rapid ventricular response: Patient was initially kept on low-dose metoprolol, 25 mg p.o. twice daily, which was further reduced to 12.5 mg p.o. twice daily, as the patient heart rate was dipping into 40s, later 12.5 p.o. twice daily was also kept on Hold, due to his heart rate. Today patient again went into A-fib with RVR, received Cardizem IV push 10 mg *2, as well as 1 dose of p.o. metoprolol 25, later he was started on, flecainide by cardiology. Currently he is being monitored, for possible underlying,SSS, tachybradycardia syndrome. Patient may be a candidate for pacemaker. Cardiology on board. Currently on Lovenox for anticoagulation. (4) Acidosis, lactic: Could be secondary to hypoxemia, does have leukocytosis and was initially tachycardic but has maintained blood pressures.? Chest x-ray with some hazy opacities but no recent respiratory symptoms. (5) Acute kidney injury: PERCY on CKD: Possibly secondary to ATN precipitated by relative hypotension preci pitated by sepsis. Patient is also chronically on meloxicam. Possible contribution from rhabdomyolysis.: Currently improving. Baseline serum creatinine is unknown Admission serum creatinine was 2.1 Renal ultrasound:?No hydronephrosis or cortical thinning. No renal atrophy. Random urine sodium: 46 Random urine creatinine:48 Random urine total protein: 23 FENA: 4% UPCR Monitor intake output charting. Was on bicarb drip and later switched to N.s. Avoid nephrotoxic's Nephrology on board. (6) Hyperglycemia: Without a known history of diabetes Hba1C: 6.7 On SSI,monitor FSG (7) PTSD (post-traumatic stress disorder): On chronic sertraline and as needed hydralazine (8) Restless legs syndrome (RLS): On chronic tizanidine (9) Osteoarthritis: On chronic meloxicam (10) NSTEMI (non-ST elevated myocardial infarction): Likely NSTEMI type II: In the setting of A-fib with RVR and sepsis Troponin trend: 2D echo: Normal LV size and systolic function with LVEF of 72%, no RWMA, mild LVH, grade 1 diastolic dysfunction. Nuclear Stress test : No evident ischemia noted. Cardiology on board (11) Sepsis: Patient meets sepsis criteria: Has elevated white cell count , elevated lactic acid, fever, hypotension, Endorgan dysfunction in the form of [place], elevated troponin. Patient has received IV fluid bolus, to which he has responded appropriately. Blood culture:NTD MRSA PCR: Positive CT chest abdomen and pelvis without contrast: No acute pathology found. Urine culture: Sputum Gram stain and culture: Rare gram-positive cocci in pairs Was covered with broad-spectrum antibiotics, which was later discontinued, given the overall clinical, progression of the patient. (12) Thrombocytopenia: Patient platelet count on admission was:214 Current platelet count is:122 Differential diagnosis includes: Possibly secondary to sepsis, follow DIC panel:Negative peripheral smear evaluation for possible schistocytosis, for TTP initiate assessment, low clinical suspicion for HIT(4T Score ) , low clinical suspicion for ITP. Monitor platelet count for now.? Currently has no active bleeding petechiae purpura. (13) Rhabdomyolysis: Was on IV hydration with bicarb drip. Monitor CPK (14) Seizure: Possible seizure-like episode at home.Nothing noted during the hospital stay. Follow prolactin (I am not sure of its utility ) : 14 Continue monitoring for now may be neurology follow-up as outpatient. Attestations Medical Necessity Statement*: Needs to be in hospital for management of A-fib with RVR. Critical Care Time: The high probability of a clinically significant, sudden or life threatening deterioration of the patient's [] system(s) required my full and direct attention, intervention and personal management. The critical care time is as shown. This time is in addition to time spent performing any reported procedures but includes the following: [x] Data and vital sign review and interpretation [x] Patient assessment, examination and intervention [x] Documentation [x] Medication orders and management Critical Care Time (min): 32 Coding Level of Care Code Critical Care >/= 30 minutes Diagnoses Syncope R55 Acute respiratory failure with hypoxia and hypercapnia J96.01; J96.02 Atrial fibrillation with rapid ventricular response I48.91 Acidosis, lactic E87.20 Acute kidney injury N17.9 Hyperglycemia R73.9 PTSD (post-traumatic stress disorder) F43.10 Restless legs syndrome (RLS) G25.81 Osteoarthritis M19.90 NSTEMI (non-ST elevated myocardial infarction) I21.4 Sepsis A41.9 Thrombocytopenia D69.6 Rhabdomyolysis M62.82 Seizure R56.9
[2022-09-01] MEDS: insulin lispro 100 unit/1 mL SUBCUT ×3 (12:25→21:03)
--- NOTE | 2022-09-01 13:36 | PM.PN ---
Subjective Subjective: Patient went back into AF RVR. His metoprolol was reduced due to resting bradycardia in the 30's and 40's. He was started back up on diltiazem and metoprolol with concern. He voices no complaints. He is agreeable to try an antiarrhythmic with low side effect potential for bradycardia. Medications: Reviewed: Yes Vitals/I&O/Wt Last Vital Signs Temp 98.5 F 09/01/22 04:00 Pulse 151 H 09/01/22 12:15 Resp 18 09/01/22 12:15 BP 123/74 09/01/22 12:15 Pulse Ox 94 09/01/22 12:15 O2 Del Method 09/01/22 06:00 O2 Flow Rate 2 08/27/22 23:30 FiO2 30 08/27/22 14:21 08/31/22 09/01/22 09/01/22 22:59 06:59 14:59 Intake Total 350 / 1300 450 / 450 Output Total 1000 / 2800 1500 / 4300 1000 / 1000 Balance -650 / -1500 -1500 / -3000 -550 / -550 Weight last 48 hrs Weight 214 lb 1.76 oz Weight 215 lb 9.6 oz Physical Exam Cardio: OTHER: Irregularly Irregular with rates in the 90's and low 100's Urinary Catheter Management: Shirley: Cath Placed During This Visit: yes Reason for Continuing Indwelling Catheter: Accurate Measurement of Urinary Output in Critically Ill Patients Urinary Catheter Date of Insertion: 08/28/22 Urinary Catheter Time of Insertion: 16:48 Data 09/01/22 02:55 09/01/22 02:55 Micro: Microbiology 08/26/22 08:55 Blood Culture - Final Blood NO GROWTH AFTER 5 DAYS 08/26/22 08:40 Blood Culture - Final Blood NO GROWTH AFTER 5 DAYS A&P Assessment and plan (1) Tachycardia, unspecified: (2) Atrial fibrillation with rapid ventricular response: Plan Trial of flecainide 50 mg BID. If unable to find the right medical therapy for his SSS Tachy/Antonino may have to evaluate for device therapy, permanent pacemaker Attestations Medical Necessity Statement*: 2 [place] Coding Level of Care Code 57478 Diagnoses Tachycardia, unspecified R00.0 Atrial fibrillation with rapid ventricular response I48.91 Time Spent (min) 30
--- NOTE | 2022-09-01 14:22 | PM.PN ---
Subjective Subjective: doing well Medications: Reviewed: Yes Vitals/I&O/Wt Last Vital Signs Temp 98.5 F 09/01/22 04:00 Pulse 69 09/01/22 14:00 Resp 20 H 09/01/22 14:00 BP 116/79 09/01/22 14:00 Pulse Ox 94 09/01/22 14:00 O2 Del Method 09/01/22 06:00 O2 Flow Rate 2 08/27/22 23:30 FiO2 30 08/27/22 14:21 08/31/22 09/01/22 09/01/22 22:59 06:59 14:59 Intake Total 350 / 1300 450 / 450 Output Total 1000 / 2800 1500 / 4300 1000 / 1000 Balance -650 / -1500 -1500 / -3000 -550 / -550 Weight last 48 hrs Weight 97.119 kg Weight 97.795 kg Physical Exam Narrative: Patient is awake, alert no acute distress HEENT, S1-S2 regular rate and rhythm per report Clear to auscultation per report 1+ pedal edema Urinary Catheter Management: Shirley: Cath Placed During This Visit: yes Reason for Continuing Indwelling Catheter: Accurate Measurement of Urinary Output in Critically Ill Patients Urinary Catheter Date of Insertion: 08/28/22 Urinary Catheter Time of Insertion: 16:48 Data 09/01/22 02:55 09/01/22 02:55 A&P Assessment and plan (1) Acute kidney injury: Plan 1. Acute kidney injury: Unknown creatinine baseline, creatinine on presentation was 1.5, peaked 5.9,. Creatinine improving Etiology of PERCY likely hemodynamic changes due to rapid A-fib with fluctuating blood pressures, possibly have developed ATN. -Noted renal ultrasound results with no hydronephrosis but questionable abscess versus mass versus pyelo on ultrasound-CT scan showed hemorrhagic cyst, no abscess no mass. -Renal fxn improving , Expect renal function To improve back to baseline . . 2. Metabolic acidosis: s/p bicarbonate drip, follow closely, lactate normal. 3. Possible sepsis: ? Source of infection. Dosed vancomycin and Zosyn per GFR 4. Rhabdomyolysis: Mild, monitor CPK trend, s/p bicarbonate drip 5. Thrombocytopenia: Mild, improved 6. NSTEMI 7. Diabetes Patient evaluated using audiovisual cart. Time spent 45 minutes Attestations Medical Necessity Statement*: per primary Coding Level of Care Code Acute Code for Chg Fwd Diagnoses Acute kidney injury N17.9
[2022-09-01] MEDS: flecainide 100 mg Tablet 50 MG PO (14:30)
--- NOTE | 2022-09-01 18:20 | PC.NURSE ---
discharge orders placed this am while preparing patient went back in to afib rvr rate 150s doctor called and mediction started as ordered,, helicopter dispatcher in to see started zach noted patient back to sr ... at bedside discharge orders stopped for now
[2022-09-01] MEDS: temazepam 15 mg Capsule PO (20:38)
[2022-09-01] MEDS: metoprolol tartrate 25 mg Tablet 12.5 MG PO (20:38)
[2022-09-01 20:43] LABS: Glucose Point of Care 167 mg/dL (70-110)
[2022-09-02] VITALS (55 sets, daily range): BP systolic 119–192; BP diastolic 77–119; PULSE 55–77; RESP 12–25; TEMP 36.4–37.4; O2SAT 88–97
[2022-09-02] MEDS: flecainide 100 mg Tablet 50 MG PO ×2 (02:17→13:55)
[2022-09-02 03:23] LABS: Anion Gap 12.6 (5-19); Blood Urea Nitrogen 38 mg/dL (8-23); Calcium 8.8 mg/dL (8.5-10.5); Carbon Dioxide 25 mmol/L (22-29); Chloride 101 mmol/L (98-107); Glomerular Filtration Rate 37.9 mL/min (90-130); Glucose 148 mg/dL (65-115); Osmolality Calculated 292 mOsm/kg (285-295); Potassium 3.6 mmol/L (3.5-5.1); Sodium 135 mmol/L (136-145)
[2022-09-02 08:11] LABS: Basophils # 0.1 10^3/uL (0.0-0.1); Basophils % 0.6 %; Eosinophils # 0.1 10^3/uL (0.0-0.8); Eosinophils % 1.1 %; Hematocrit 43.7 % (42.0-52.0); Hemoglobin 15.7 g/dL (11.7-16.6); Lymphocytes # 1.7 10^3/uL (0.8-4.8); Lymphocytes % 17.7 %; Mean Corpuscular HGB Conc 35.9 g/dL (30.0-36.0); Mean Corpuscular Hemoglobin 31.6 pg (28.0-34.0); Mean Corpuscular Volume 87.9 fl (80-94); Mean Platelet Volume 9.5 fL (7.4-10.4); Monocytes # 1.1 10^3/uL (0.2-0.9); Monocytes % 11.8 %; Neutrophils # 6.44 10^3/uL (1.8-7.7); Neutrophils % 68.2 %; Nucleated Red Blood Cells % 0 %; Platelet Count 149 10^3/cmm (130-400); Red Blood Count 4.97 10^6/uL (4.1-5.3); Red Cell Distribution Width 12.3 % (12.1-15.1); White Blood Count 9.4 10^3/uL (4.0-10.0)
[2022-09-02] MEDS: enoxaparin 100 mg/mL Syringe SUBCUT (08:13)
[2022-09-02 08:20] LABS: Glucose Point of Care 165 mg/dL (70-110)
[2022-09-02 08:20] LABS: Glucose Point of Care 131 mg/dL (70-110)
[2022-09-02] MEDS: amlodipine 5 mg Tablet PO (08:23)
[2022-09-02] MEDS: metoprolol tartrate 25 mg Tablet 12.5 MG PO (08:23)
[2022-09-02] MEDS: docusate sodium 100 mg Capsule PO (08:24)
[2022-09-02] MEDS: guaiFENesin 600 mg Tablet 1200 MG PO (08:24)
[2022-09-02] MEDS: pantoprazole DR 40 mg Tablet PO (08:25)
--- NOTE | 2022-09-02 08:35 | PM.PN ---
Subjective Subjective: Denies any complaints Medications: Reviewed: Yes Vitals/I&O/Wt Last Vital Signs Temp 99.3 F 09/02/22 08:15 Pulse 63 09/02/22 08:15 Resp 20 H 09/02/22 08:15 BP 165/96 09/02/22 08:15 Pulse Ox 88 L 09/02/22 03:00 O2 Del Method 09/02/22 08:15 O2 Flow Rate 2 08/27/22 23:30 FiO2 30 08/27/22 14:21 09/01/22 09/02/22 09/02/22 22:59 06:59 14:59 Intake Total 500 / 950 120 / 1070 Output Total 1800 / 2800 1200 / 4000 Balance -1300 / -1850 -1080 / -2930 Weight last 48 hrs Weight 97.069 kg Weight 97.119 kg Physical Exam Narrative: Patient is awake, alert no acute distress HEENT, S1-S2 regular rate and rhythm per report Clear to auscultation per report 1+ pedal edema Urinary Catheter Management: Shirley: Cath Placed During This Visit: yes Reason for Continuing Indwelling Catheter: Accurate Measurement of Urinary Output in Critically Ill Patients Urinary Catheter Date of Insertion: 08/28/22 Urinary Catheter Time of Insertion: 16:48 Data 09/02/22 07:54 09/02/22 02:42 A&P Assessment and plan (1) Acute kidney injury: Plan 1. Acute kidney injury: Unknown creatinine baseline, creatinine on presentation was 1.5, peaked 5.9,. Creatinine improving Etiology of PERCY likely hemodynamic changes due to rapid A-fib with fluctuating blood pressures, possibly have developed ATN. -Noted renal ultrasound results with no hydronephrosis but questionable abscess versus mass versus pyelo on ultrasound-CT scan showed hemorrhagic cyst, no abscess no mass. -Renal fxn improving , Expect renal function To improve back to baseline . . 2. Metabolic acidosis: s/p bicarbonate drip, follow closely, lactate normal. 3. Possible sepsis: ? Source of infection. 4. Rhabdomyolysis: Mild, improved 5. Thrombocytopenia: Mild, improved 6. NSTEMI 7. Diabetes 8. A fib with RVR Patient evaluated using audiovisual cart. Time spent 45 minutes Attestations Medical Necessity Statement*: per primary Coding Level of Care Code Acute Code for Chg Fwd Diagnoses Acute kidney injury N17.9
--- NOTE | 2022-09-02 08:55 | PC.SOCIAL ---
IMM update IMM Updated with patient and . Copy Pg 2 provided. Verbalized an understanding. Initialled, dated, timed, and placed in chart.
--- NOTE | 2022-09-02 10:38 | P.DS_ITS ---
Discharge Providers Date of Admission: 08/26/22 07:28 Date of Discharge: September 02, 2022 Attending Provider at Admission: Sabrina Yoon MD Attending Provider at Discharge: aDnica Leigh MD Consults: Cardiology Diagnoses at Discharge Discharge Diagnosis (1) Acute kidney injury: Status: Acute Reason for Visit Reason for Visit: agonal breathing Hospital Course Hospital Course Kellie Jurado is a 67 year old male who presented to the emergency room after his found him unresponsive in the bathroom.? He was his usual self the day preceding and day of admission. He was not responsive in the bathroom but he was still breathing.? Some of his breathing was shallow.? He did not lose pulse. When EMS arrived he was hypoxic with room air sats around 80, improved on oxygen therapy to the 90s initially.? On arrival here he had agonal breathing and again was hypoxemic.? He was subsequently intubated.? He was noted to be in atrial fibrillation with rapid ventricular response with heart rates as high as the 140s.No recent reports of fevers, chest pain, respiratory problems. He was admitted to the hospital in view of syncope, acute respiratory failure with hypoxia and hypercarbia, new history of A-fib and RVR.. No acute ischemic changes were noted on EKG monitoring. Troponin series with mildly elevated troponins likely secondary to type II SD from A-fib. To further evaluate for ischemic etiology, he underwent a stress test on August 30, 2022 which showed no significant perfusion abnormalities. Echocardiogram had shown an LVEF of 72%, no regional wall motion abnormalities, grade 1 diastolic dysfunction. Thickened aortic valve with trace aortic regurgitation. Lower extremity duplex was negative for DVT. CTA could not be performed due to PERCY with creatinine at 5.9 on admission. Patient was initially started on treatment with metoprolol 25 mg p.o. twice daily which was reduced to 12.5 mg p.o. twice daily as his heart rate was bradycardic down to 40s. He was planned to be discharged on September 01, 2022, however went back into A-fib with RVR which improved after being given Cardizem pushes 10 mg x 2. Thereafter he has been started on flecainide 50 mg p.o. twice daily by cardiology. He has not had any recurrence of events since yesterday. Currently denies any chest pain dyspnea or palpitations. Overall feeling improved since admission. He is currently on room air. His hospital course is also notable for PERCY, creatinine of 5.[address] of the chest abdomen and pelvis showed a 2 cm cyst on the right kidney and a 1.2 cm hyperdense lesion in the right kidney most compatible with a hemorrhagic cyst. No acute infectious sources were identified in the chest or the abdomen. He had a Shirley placed upon admission, no history of urinary retention. Shirley was placed for accurate output charting. At the time of discharge his creatinine has improved to 1.8. Likely etiology of PERCY is ATN from hypotension and cardiac arrhythmia with poor perfusion. His urine output is over 4 L by the time of discharge. We will remove Shirley catheter at time of discharge. It is suspected that patient may have tachybradycardia syndrome and with initiation of new medications, he is being discharged with an event monitor toda y at the advice of cardiology service. Patient is recommended to follow-up as an outpatient with cardiology, he prefers to keep within the [facility] and will be reaching out to the [facility] for referral. In the interim if there are any acute emergencies he is instructed to present to the nearest ER. Patient will be traveling to live in [place] with his . He is instructed to wear his CPAP as prescribed, currently noncompliant with it due to reported claustrophobia. Patient was febrile upon admission, CT of the chest abdomen and pelvis did not reveal any focal infectious source, sputum culture showed normal respiratory jah, blood culture has remained negative to date, urine analysis negative for leukocyte Estrace, negative nitrate, no urine bacteria. His fever has since resolved. Last febrile on 08/27/2022. Physical Exam Narrative: General: No acute distress, AO x3 HEENT: PERRLA, pupils bilaterally equal and reactive, pallors not present Chest: Normal vesicular breath sounds, no added sounds, equal good air entry bilaterally CVS: S1-S2 regular, no murmurs, no tachycardia, no gallops, no rubs Abdomen: Soft, nontender, no organomegaly, bowel sounds present Neuro: No focal deficits, no facial deformity, AO x3, power 5/5 in all limbs Extremities: no edema, clubbing or cyanosis Urinary Catheter Management: Shirley: Cath Placed During This Visit: yes Reason for Continuing Indwelling Catheter: Accurate Measurement of Urinary Output in Critically Ill Patients Urinary Catheter Date of Insertion: 08/28/22 Urinary Catheter Time of Insertion: 16:48 Discharge Data Studies Completed and Pending Completed Studies During Hospitalization Category Date Time Status CT cervical spin wo con* [id number] Stat Cat Scan 08/26/22 01:[address] chest abdomen pelvis [[place] [id number] Cat Scan 08/28/22 08:04 Completed ] Routine CT head wo con* [id number] Stat Cat Scan 08/26/22 00:53 Completed CXRP [XR chest 1V portable [id number]] Routine Exams 08/27/22 09:22 Completed Cardiac Stress Test MIBI [Sestamibi Stress Test Request Exams 08/29/22 18:03 Completed ] Routine XR chest 1V portable [id number] Stat Exams 08/26/22 01:02 Completed NM kiana perf SPECT r/s* [id number] Routine Nuc Med 08/30/22 18:03 Completed CV carotid duplex BI* [id number] Routine Ultrasound 08/26/22 07:56 Completed CV. echo complete* [id number] Routine Ultrasound 08/26/22 07:20 Completed US renal BI* [id number] Routine Ultrasound 08/27/22 13:00 Completed US venous duplex lower extremity bilat [CV venous Ultrasound 08/26/22 13:22 [place] [id number]] Routine Radiology Impressions Head CT 08/26/22 00:53 IMPRESSION: 1. No acute infarct or hemorrhage. 2. No calvarial or skull base fracture. Cervical Spine CT 08/26/22 01:02 IMPRESSION: No fracture. Chest X-Ray 08/27/22 09:22 IMPRESSION: 1. No acute cardiopulmonary finding. 2. ET tube and NG tube both in satisfactory position. Renal Ultrasound 08/27/22 13:00 IMPRESSION: 1. No hydronephrosis or cortical thinning. No renal atrophy. 2. Interruption of the normal sinus fat in the RIGHT kidney. This may be normal for this patient but should be further evaluated by CT. CT is pending. Differential would include abscess, mass or pyelonephritis. Chest/Abdomen/Pelvis CT 08/28/22 08:04 IMPRESSION: No infectious source identified within the chest. IMPRESSION: No infectious source identified within the abdomen/pelvis. COMMENTS: Consistent with the [employer]'s Incidental Findings Committee white paper (J Am Hamida Radiol 2018): Any incidental renal lesion less than 1 cm or classified as too small to characterize, or any incidental cystic renal lesion characterized as simple-appearing, is likely benign. No follow-up imaging is recommended for these lesions per consensus recommendations based on imaging criteria. Laboratory Results WBC 9.4 10^3/uL (4.0-10.0) 09/02/22 07:54 Corrected WBC Cancelled 09/02/22 02:42 RBC 4.97 10^6/uL (4.1-5.3) 09/02/22 07:54 Hgb 15.7 g/dL (11.7-16.6) 09/02/22 07:54 Hct 43.7 % (42.0-52.0) 09/02/22 07:54 MCV 87.9 fl (80-94) 09/02/22 07:54 MCH 31.6 pg (28.0-34.0) 09/02/22 07:54 MCHC 35.9 g/dL (30.0-36.0) 09/02/22 07:54 RDW 12.3 % (12.1-15.1) 09/02/22 07:54 Plt Count 149 10^3/cmm (130-400) 09/02/22 07:54 MPV 9.5 fL (7.4-10.4) 09/02/22 07:54 Gran % Cancelled 09/02/22 02:42 Neut % (Auto) 68.2 % 09/02/22 07:54 Lymph % (Auto) 17.7 % 09/02/22 07:54 [place] % (Auto) 11.8 % 09/02/22 07:54 Eos % (Auto) 1.1 % 09/02/22 07:54 Baso % (Auto) 0.6 % 09/02/22 07:54 Neut # (Auto) 6.44 10^3/uL (1.8-7.7) 09/02/22 07:54 Lymph # (Auto) 1.7 10^3/uL (0.8-4.8) 09/02/22 07:54 [place] # (Auto) 1.1 10^3/uL (0.2-0.9) H 09/02/22 07:54 Eos # (Auto) 0.1 10^3/uL (0.0-0.8) 09/02/22 07:54 Baso # (Auto) 0.1 10^3/uL (0.0-0.1) 09/02/22 07:54 Absolute Gran (auto) Cancelled 09/02/22 02:42 Nucleated RBC % (auto) 0 % 09/02/22 07:54 Nucleated RBCs # 0.0 /100WBC 09/02/22 07:54 PT 16.70 SECONDS (12.1-14.9) H 08/30/22 02:29 INR 1.31 (0.8-1.2) H 08/30/22 02:29 APTT 61.5 SECONDS (23.9-36.7) H 08/31/22 04:53 Fibrinogen 630 mg/dL (174-498) H 08/30/22 02:29 Fibrin Degrad Products Pos, 10-40 ug/mL (NEG) H 08/30/22 02:29 D-Dimer 0.62 ug/mIFEU (0-0.59) H 08/26/22 00:55 Specimen Type Arterial 08/28/22 03:41 Sample Site Radial, right 08/28/22 03:41 ABG pH 7.36 (7.35-7.45) 08/28/22 03:41 ABG pCO2 34.0 mmHg (35-45) L 08/28/22 03:41 ABG pO2 72.1 mmHg (80.0-100.0) L 08/28/22 03:41 ABG HCO3 19.1 mmol/L (22-26) L 08/28/22 03:41 ABG O2 Saturation 96.2 08/28/22 03:41 ABG Base Excess -5.5 mmol/L (-2.0-2.0) L 08/28/22 03:41 Luis Fernando Test Pos 08/28/22 03:41 A-a O2 Gradient 4.7 mmHg (5-10) L 08/28/22 03:41 Hematocrit 45.2 % (42-52) 08/28/22 03:41 Hgb O2 Saturation 94.4 % (95-100) L 08/28/22 03:41 Carboxyhemoglobin 1.7 %THgb (0.4-20.1) 08/28/22 03:41 Methemoglobin 0.2 % (0.4-1.5) L 08/28/22 03:41 Total Hemoglobin 14.8 g/dL (14-18) 08/28/22 03:41 Sodium 137.0 mmol/L (131-143) 08/28/22 03:41 Potassium 4.0 mmol/L (3.5-5.0) 08/28/22 03:41 Glucose 174.0 mg/dL (70-115) H 08/28/22 03:41 Ionized Calcium 1.1 mmol/L (1.1-1.4) 08/28/22 03:41 O2 Delivery Device None 08/28/22 03:41 FiO2 21.0 % 08/28/22 03:41 Tidal Volume 0.45 08/27/22 04:00 PEEP 8.0 cmH20 08/27/22 04:00 Junior Software Developer ID Alewe 08/28/22 03:41 Sodium 135 mmol/L (136-145) L 09/02/22 02:42 Potassium 3.6 mmol/L (3.5-5.1) 09/02/22 02:42 Chloride 101 mmol/L (98-107) 09/02/22 02:42 Carbon Dioxide 25 mmol/L (22-29) 09/02/22 02:42 Anion Gap 12.6 (5-19) 09/02/22 02:42 BUN 38 mg/dL (8-23) H 09/02/22 02:42 Creatinine 1.8 mg/dL (0.7-1.2) H 09/02/22 02:42 GFR Calculation 37.9 mL/min (90-130) L 09/02/22 02:42 Glucose 148 mg/dL (65-115) H 09/02/22 02:42 POC Glucose 131 mg/dL (70-110) H 09/02/22 07:59 Estimat Average Glucose 146 08/26/22 07:41 Hemoglobin A1c 6.7 % (4.0-6.0) H 08/26/22 07:41 Calculated Osmolality 292 mOsm/kg (285-295) 09/02/22 02:42 Lactate 1.8 mmol/L (0.5-2.2) 08/28/22 07:50 Calcium 8.8 mg/dL (8.5-10.5) 09/02/22 02:42 Magnesium 2.2 mg/dL (1.7-2.3) 08/29/22 03:45 Total Bilirubin 0.8 mg/dL (0.15-1.2) 08/29/22 03:45 AST 60 U/L (0-40) H 08/29/22 03:45 ALT 20 U/L (0-41) 08/29/22 03:45 Alkaline Phosphatase 75 U/L (40-130) 08/29/22 03:45 Creatine Kinase 749 U/L (39-308) H* 08/31/22 04:53 CK-MB (CK-2) 1.4 ng/mL (0-10.4) 08/31/22 04:53 CK-MB (CK-2) Rel Index % (0.0-5.3) 08/31/22 04:53 Troponin T Baseline 14 ng/L (0-15) 08/26/22 00:55 Troponin T 120 Minute 27.62 ng/L (0-15) H 08/26/22 05:05 Delta Troponin T 13.62 ABS# (0-10) H* 08/26/22 05:05 Troponin T Hi Sens 6Hr 34.65 ng/L (0-15) H 08/26/22 07:01 Troponin T Hi Sens 6Hr Delta 20.65 ng/L (0-12) H* 08/26/22 07:01 NT-Pro-B Natriuret Pep 105 pg/mL (0-125) 08/26/22 00:55 Total Protein 6.0 g/dL (6.6-8.7) L 08/29/22 03:45 Albumin 3.2 g/dL (3.5-5.2) L 08/29/22 03:45 Globulin 2.8 g/dL (1.3-4.6) 08/29/22 03:45 Triglycerides 265 mg/dL (0-150) H 08/26/22 07:41 Cholesterol 185 mg/dL (0-200) 08/26/22 07:41 LDL Cholesterol, Calc 99 mg/dL (50-129) 08/26/22 07:41 HDL Cholesterol 33 mg/dL (60-100) L 08/26/22 07:41 LDL/HDL Ratio 3.00 RATIO (0.00-3.22) 08/26/22 07:41 Cholesterol/HDL Ratio 5.61 mg/dL (1.0-5.00) H 08/26/22 07:41 TSH 9.22 uIU/mL (0.27-4.20) H 08/26/22 00:55 Free T4 0.98 ng/dL (0.82-1.77) 08/26/22 07:41 Free T3 3.2 PG/ML (2.0-4.4) 08/26/22 07:41 Prolactin 14.94 ng/mL (4.0-15.2) 08/29/22 03:45 Urine Color Yellow (Yellow) 08/26/22 00:58 Urine Appearance Clear (CLEAR) 08/26/22 00:58 Urine pH 5 (5-7) 08/26/22 00:58 Ur Specific [place] 1.020 (1.005-1.030) 08/26/22 00:58 Urine Protein 1+ (Negative) H 08/26/22 00:58 Urine Glucose (UA) Norm (Normal) 08/26/22 00:58 Urine Ketones 1+ (Negative) H 08/26/22 00:58 Urine Blood 3+ (Negative) H 08/26/22 00:58 Urine Nitrate Negative (Negative) 08/26/22 00:58 Urine Bilirubin Neg (Negative) 08/26/22 00:58 Urine Urobilinogen Neg mg/dL (Negative) 08/26/22 00:58 Ur Leukocyte Esterase Negative (Negative) 08/26/22 00:58 Urine RBC 0-4 /hpf (0-2) H 08/26/22 00:58 Urine WBC 0-4 /hpf (0-5) H 08/26/22 00:58 Ur Squamous Epith Cells 0-4 /hpf (0-5) H 08/26/22 00:58 Amorphous Sediment Not Reportable 08/26/22 00:58 Urine Bacteria None /hpf (NONE) 08/26/22 00:58 U Random Total Protein 23 mg/dL 08/28/22 17:05 Ur Random Sodium 46 mmol/L 08/28/22 17:05 Ur Random Chloride 28 mmol/L 08/28/22 17:05 Urine Creatinine 48 mg/dL (39-259) 08/28/22 17:05 Vancomycin Trough 7.4 ug/mL (10-15) L 09/01/22 08:22 Urine Opiates Screen Negative ng/mL (Negative) 08/26/22 00:58 Ur Barbiturates Screen Negative ng/mL (Negative) 08/26/22 00:58 Ur Phencyclidine Scrn Negative ng/mL (Negative) 08/26/22 00:58 Ur Amphetamines Screen Negative ng/mL (Negative) 08/26/22 00:58 U Benzodiazepines Scrn Negative ng/mL (Negative) 08/26/22 00:58 Urine Cocaine Screen Negative ng/mL (Negative) 08/26/22 00:58 U Marijuana (THC) Screen Negative ng/mL (Negative) 08/26/22 00:58 Ethyl Alcohol < 10 mg/dL (0-10) 08/26/22 00:55 Vitals Last Vital Signs Temp 99.3 F 09/02/22 08:15 Pulse 65 09/02/22 10:00 Resp 19 H 09/02/22 10:00 BP 131/80 09/02/22 10:00 Pulse Ox 88 L 09/02/22 03:00 O2 Del Method 09/02/22 08:15 O2 Flow Rate 2 08/27/22 23:30 FiO2 30 08/27/22 14:21 Discharge Plan Discharge Patient Disposition: Home Health Service Condition: Stable Prescriptions: New amlodipine 5 mg Tablet 5 mg PO DAILY 30 Days Qty: 30 3RF chlorpromazine 25 mg Tablet 25 mg PO Q6H PRN (Reason: Agitation) 14 Days Qty: 20 0RF Eliquis 5 mg Tablet 5 mg PO BID@0900,2099 30 Days Qty: 60 2RF temazepam 15 mg Capsule 15 mg PO BEDTIME PRN (Reason: Insomnia) 30 Days Qty: 30 0RF pantoprazole 40 mg Tablet,Delayed Release (Dr/Ec) 40 mg PO DAILY 30 Days Qty: 30 0RF flecainide 100 mg Tablet 50 mg PO Q12H 30 Days Qty: 30 1RF metoprolol tartrate 25 mg Tablet 12.5 mg PO BID@0900,2100 30 Days Qty: 30 1RF Continued tizanidine 4 mg Tablet 4 mg PO BEDTIME PRN (Reason: Muscle Pain) hydroxyzine HCl 25 mg Tablet 25 mg PO BEDTIME PRN (Reason: Anxiety) Zoloft 50 mg Tablet 25 mg PO DAILY Discontinued meloxicam 15 mg Tablet 15 mg PO DAILY Discharge Orders: Discharge Order (Routine); Ordered 09/01/22 Ordered By: Cade Diaz Other Ambulatory Orders: Basic Metabolic Panel (Routine) Timeframe: 1 Week Facility: [facility] - Location: Lab - Main Lab Ordered By: Cade Diaz DME: Walker (Order) Location: None Selected Ordered By: Cade Diaz MCT/Event Monitor 30 Days (Routine) Timeframe: [id number] Facility: [facility] - Location: Radiology Ordered By: Danica Leigh Referrals: Stew Ambrose MD [Physician] - 2 weeks Discharge Diet: Cardiac Discharge Activity: Resume usual activity Patient Instructions: Temazepam (By mouth), Chlorpromazine (By mouth), Amlodipine (By mouth), Apixaban (By mouth), Opioid Safety Discharge Attestations Time Spent in Discharge Care*: greater than 30 min Quality Metrics Clinical Quality Measures [ No reported AMI, CVA or VTE this stay] Coding Level of Care Code Acute Code for Chg Fwd Diagnoses Acute kidney injury N17.9
--- NOTE | 2022-09-02 10:42 | PC.NURSE ---
Remove Shirley Catheter Shirley catheter removed per doctor orders, 9 mls of urine returned from balloon. Catheter tip intact upon removal.
[2022-09-02] MEDS: ALPRAZolam 0.5 mg Tablet 0.25 MG PO (11:30)
[2022-09-02 11:43] LABS: Glucose Point of Care 159 mg/dL (70-110)
[2022-09-02] MEDS: insulin lispro 100 unit/1 mL SUBCUT (12:00)
--- NOTE | 2022-09-02 16:32 | P.PN_ITS ---
Subjective Subjective: Patient had some episodes of bradycardia yesterday. For that reason, the dose of the metoprolol was cut back to 12.5 mg p.o. twice daily. He also was started on flecainide 50 mg p.o. twice daily. So far he seems to be tolerating the medications well. The BUN/creatinine is coming down. The pat ient is feeling much better. No chest pain or shortness of breath. Remains afebrile. Medications: Medication Review Details: Current Medications Acetaminophen (Acetaminophen 325 Mg Tablet) 650 mg PO Q6H PRN PRN Reason: MILD PAIN Last Admin: 08/27/22 19:51 Dose: 650 mg Albuterol/Ipratropium (Ipratropium-Albuterol 3 Ml Neb) 3 ml INHALATION Q6H PRN PRN Reason: SHORTNESS OF BREATH Alprazolam (Alprazolam 0.5 Mg Tablet) 0.25 mg PO TID PRN PRN Reason: ANXIETY Last Admin: 09/02/22 11:30 Dose: 0.25 mg Amlodipine Besylate (Amlodipine 5 Mg Tablet) 5 mg PO DAILY [facility] Last Admin: 09/02/22 08:23 Dose: 5 mg Chlorpromazine HCl (Chlorpromazine 25 Mg Tablet) 25 mg PO Q6H PRN PRN Reason: AGITATION Last Admin: 09/01/22 07:34 Dose: 25 mg Dextrose (Dextrose 50% Syringe 50 Ml) 25 ml IVP ONCE PRN; Protocol PRN Reason: hypoglycemia protocol Dextrose (Dextrose 50% Syringe 50 Ml) 50 ml IVP PRN PRN; Protocol PRN Reason: hypoglycemia protocol Docusate Sodium (Docusate Sodium 100 Mg Capsule) 100 mg PO BID [facility] Last Admin: 09/02/22 08:24 Dose: 100 mg Enoxaparin Sodium (Enoxaparin 100 Mg/Ml Syringe) 100 mg 1 mg/kg (100 mg) SUBCUT Q12H [facility] Flecainide Acetate (Flecainide 100 Mg Tablet) 50 mg PO Q12H [facility] Last Admin: 09/02/22 13:55 Dose: 50 mg Glucagon (Glucagon 1 Mg/Ml Inj 1 Ml) 1 mg IM ONCE PRN; Protocol PRN Reason: Adult Acute Hypoglycemia Prot. Guaifenesin (Guaifenesin 600 Mg Tablet) 1,200 mg PO BID [facility] Last Admin: 09/02/22 08:24 Dose: 1,200 mg Heparin Sodium (Porcine) (Heparin 5,000 Unit/Ml Inj 1 Ml) 0 unit IV PRN PRN; Protocol PRN Reason: Heparin weight-base protocol Dextrose (D5w) 500 mls @ 100 mls/hr IV ONCE PRN; Protocol PRN Reason: Adult Acute Hypoglycemia Prot Insulin Human Lispro (Insulin Lispro 100 Unit/1 Ml) 0 unit SUBCUT BEDTIME [facility]; Protocol Last Admin: 09/01/22 21:03 Dose: 1 unit Insulin Human Lispro (Insulin Lispro 100 Unit/1 Ml) 0 unit SUBCUT TIDWM [facility]; Protocol Last Admin: 09/02/22 12:00 Dose: 2 unit Metoprolol Tartrate (Metoprolol Tartrate 25 Mg Tablet) 12.5 mg PO BID@0900,2100 [facility] Last Admin: 09/02/22 08:23 Dose: 12.5 mg Ondansetron HCl (Ondansetron 2 Mg/Ml Sdv 2 Ml) 4 mg IVP Q6H PRN PRN Reason: NAUSEA AND VOMITING Ondansetron HCl (Ondansetron 2 Mg/Ml Sdv 2 Ml) 4 mg IVP Q2M PRN PRN Reason: NAUSEA Pantoprazole Sodium (Pantoprazole Dr 40 Mg Tablet) 40 mg PO DAILY [facility] Last Admin: 09/02/22 08:25 Dose: 40 mg Temazepam (Temazepam 15 Mg Capsule) 15 mg PO BEDTIME PRN PRN Reason: INSOMNIA Last Admin: 09/01/22 20:38 Dose: 15 mg Vitals/I&O/Wt Last Vital Signs Temp 97.6 F 09/02/22 14:04 Pulse 68 09/02/22 14:04 Resp 16 09/02/22 14:04 BP 169/96 09/02/22 14:04 Pulse Ox 96 09/02/22 14:04 O2 Del Method 09/02/22 08:15 O2 Flow Rate 2 08/27/22 23:30 FiO2 30 08/27/22 14:21 09/02/22 09/02/22 09/02/22 06:59 14:59 22:59 Intake Total 120 / 1070 360 / 360 Output Total 1200 / 4000 900 / 900 Balance -1080 / -2930 -540 / -540 Weight last 48 hrs Weight 214 lb Weight 214 lb 1.76 oz Physical Exam Narrative: GENERAL: The patient is alert and oriented times three. Not in any acute distress. HEENT: No significant pallor, icterus or lymphadenopathy.Oral cavity: There are no mucous membrane lesions. NECK: Trachea appears to be central. No masses noted. No JVD or thyromegaly appreciated. RESPIRATORY: Chest is symmetrical. No intercostals muscle retraction or any accessory muscle activation. There is no chest wall tenderness. Breath sounds are heard bilaterally. No rales or rhonchi heard. No evidence of any consolidation. BREASTS: Deferred. HEART: The heart sounds are normal. No S3 or S4. No significant murmurs. No pericardial rub ABDOMEN: No vessel pulsations or distention. No tenderness. No organomegaly appreciated. Bowel sounds are normally heard. : Deferred. RECTAL: Deferred. LYMPHATIC: No lymphadenopathy noted in the neck. EXTREMITIES: No edema or cyanosis. No clubbing. MUSCULOSKELETAL: No acute joint deformities or swelling SKIN: There are no significant rashes or ecchymosis NEUROPSYCHIATRIC: The patient is alert and oriented x3. Appears to be in a good mood. No tremors or rigidity noted. Urinary Catheter Management: Shirley: Cath Placed During This Visit: yes, but has since been removed by the nurse Reason for Continuing Indwelling Catheter: Accurate Measurement of Urinary Output in Critically Ill Patients Urinary Catheter Date of Insertion: 08/28/22 Urinary Catheter Time of Insertion: 16:48 Date Urinary Catheter Removed: 09/02/22 Time Urinary Catheter Discontinued: 10:40 Data 09/02/22 07:54 09/02/22 02:42 Other Labs: Laboratory Last Values WBC 9.4 10^3/uL (4.0-10.0) 09/02/22 07:54 Corrected WBC Cancelled 09/02/22 02:42 RBC 4.97 10^6/uL (4.1-5.3) 09/02/22 07:54 Hgb 15.7 g/dL (11.7-16.6) 09/02/22 07:54 Hct 43.7 % (42.0-52.0) 09/02/22 07:54 MCV 87.9 fl (80-94) 09/02/22 07:54 MCH 31.6 pg (28.0-34.0) 09/02/22 07:54 MCHC 35.9 g/dL (30.0-36.0) 09/02/22 07:54 RDW 12.3 % (12.1-15.1) 09/02/22 07:54 Plt Count 149 10^3/cmm (130-400) 09/02/22 07:54 MPV 9.5 fL (7.4-10.4) 09/02/22 07:54 Gran % Cancelled 09/02/22 02:42 Neut % (Auto) 68.2 % 09/02/22 07:54 Lymph % (Auto) 17.7 % 09/02/22 07:54 Greenlee % (Auto) 11.8 % 09/02/22 07:54 Eos % (Auto) 1.1 % 09/02/22 07:54 Baso % (Auto) 0.6 % 09/02/22 07:54 Neut # (Auto) 6.44 10^3/uL (1.8-7.7) 09/02/22 07:54 Lymph # (Auto) 1.7 10^3/uL (0.8-4.8) 09/02/22 07:54 Greenlee # (Auto) 1.1 10^3/uL (0.2-0.9) H 09/02/22 07:54 Eos # (Auto) 0.1 10^3/uL (0.0-0.8) 09/02/22 07:54 Baso # (Auto) 0.1 10^3/uL (0.0-0.1) 09/02/22 07:54 Absolute Gran (auto) Cancelled 09/02/22 02:42 Nucleated RBC % (auto) 0 % 09/02/22 07:54 Nucleated RBCs # 0.0 /100WBC 09/02/22 07:54 PT 16.70 SECONDS (12.1-14.9) H 08/30/22 02:29 INR 1.31 (0.8-1.2) H 08/30/22 02:29 APTT 61.5 SECONDS (23.9-36.7) H 08/31/22 04:53 Fibrinogen 630 mg/dL (174-498) H 08/30/22 02:29 Fibrin Degrad Products Pos, 10-40 ug/mL (NEG) H 08/30/22 02:29 D-Dimer 0.62 ug/mIFEU (0-0.59) H 08/26/22 00:55 Specimen Type Arterial 08/28/22 03:41 Sample Site Radial, right 08/28/22 03:41 ABG pH 7.36 (7.35-7.45) 08/28/22 03:41 ABG pCO2 34.0 mmHg (35-45) L 08/28/22 03:41 ABG pO2 72.1 mmHg (80.0-100.0) L 08/28/22 03:41 ABG HCO3 19.1 mmol/L (22-26) L 08/28/22 03:41 ABG O2 Saturation 96.2 08/28/22 03:41 ABG Base Excess -5.5 mmol/L (-2.0-2.0) L 08/28/22 03:41 Luis Fernando Test Pos 08/28/22 03:41 A-a O2 Gradient 4.7 mmHg (5-10) L 08/28/22 03:41 Hematocrit 45.2 % (42-52) 08/28/22 03:41 Hgb O2 Saturation 94.4 % (95-100) L 08/28/22 03:41 Carboxyhemoglobin 1.7 %THgb (0.4-20.1) 08/28/22 03:41 Methemoglobin 0.2 % (0.4-1.5) L 08/28/22 03:41 Total Hemoglobin 14.8 g/dL (14-18) 08/28/22 03:41 Sodium 137.0 mmol/L (131-143) 08/28/22 03:41 Potassium 4.0 mmol/L (3.5-5.0) 08/28/22 03:41 Glucose 174.0 mg/dL (70-115) H 08/28/22 03:41 Ionized Calcium 1.1 mmol/L (1.1-1.4) 08/28/22 03:41 O2 Delivery Device None 08/28/22 03:41 FiO2 21.0 % 08/28/22 03:41 Tidal Volume 0.45 08/27/22 04:00 PEEP 8.0 cmH20 08/27/22 04:00 Bounty Trapper ID Alewe 08/28/22 03:41 Sodium 135 mmol/L (136-145) L 09/02/22 02:42 Potassium 3.6 mmol/L (3.5-5.1) 09/02/22 02:42 Chloride 101 mmol/L (98-107) 09/02/22 02:42 Carbon Dioxide 25 mmol/L (22-29) 09/02/22 02:42 Anion Gap 12.6 (5-19) 09/02/22 02:42 BUN 38 mg/dL (8-23) H 09/02/22 02:42 Creatinine 1.8 mg/dL (0.7-1.2) H 09/02/22 02:42 GFR Calculation 37.9 mL/min (90-130) L 09/02/22 02:42 Glucose 148 mg/dL (65-115) H 09/02/22 02:42 POC Glucose 159 mg/dL (70-110) H 09/02/22 11:33 Estimat Average Glucose 146 08/26/22 07:41 Hemoglobin A1c 6.7 % (4.0-6.0) H 08/26/22 07:41 Calculated Osmolality 292 mOsm/kg (285-295) 09/02/22 02:42 Lactate 1.8 mmol/L (0.5-2.2) 08/28/22 07:50 Calcium 8.8 mg/dL (8.5-10.5) 09/02/22 02:42 Magnesium 2.2 mg/dL (1.7-2.3) 08/29/22 03:45 Total Bilirubin 0.8 mg/dL (0.15-1.2) 08/29/22 03:45 AST 60 U/L (0-40) H 08/29/22 03:45 ALT 20 U/L (0-41) 08/29/22 03:45 Alkaline Phosphatase 75 U/L (40-130) 08/29/22 03:45 Creatine Kinase 749 U/L (39-308) H* 08/31/22 04:53 CK-MB (CK-2) 1.4 ng/mL (0-10.4) 08/31/22 04:53 CK-MB (CK-2) Rel Index % (0.0-5.3) 08/31/22 04:53 Troponin T Baseline 14 ng/L (0-15) 08/26/22 00:55 Troponin T 120 Minute 27.62 ng/L (0-15) H 08/26/22 05:05 Delta Troponin T 13.62 ABS# (0-10) H* 08/26/22 05:05 Troponin T Hi Sens 6Hr 34.65 ng/L (0-15) H 08/26/22 07:01 Troponin T Hi Sens 6Hr Delta 20.65 ng/L (0-12) H* 08/26/22 07:01 NT-Pro-B Natriuret Pep 105 pg/mL (0-125) 08/26/22 00:55 Total Protein 6.0 g/dL (6.6-8.7) L 08/29/22 03:45 Albumin 3.2 g/dL (3.5-5.2) L 08/29/22 03:45 Globulin 2.8 g/dL (1.3-4.6) 08/29/22 03:45 Triglycerides 265 mg/dL (0-150) H 08/26/22 07:41 Cholesterol 185 mg/dL (0-200) 08/26/22 07:41 LDL Cholesterol, Calc 99 mg/dL (50-129) 08/26/22 07:41 HDL Cholesterol 33 mg/dL (60-100) L 08/26/22 07:41 LDL/HDL Ratio 3.00 RATIO (0.00-3.22) 08/26/22 07:41 Cholesterol/HDL Ratio 5.61 mg/dL (1.0-5.00) H 08/26/22 07:41 TSH 9.22 uIU/mL (0.27-4.20) H 08/26/22 00:55 Free T4 0.98 ng/dL (0.82-1.77) 08/26/22 07:41 Free T3 3.2 PG/ML (2.0-4.4) 08/26/22 07:41 Prolactin 14.94 ng/mL (4.0-15.2) 08/29/22 03:45 Urine Color Yellow (Yellow) 08/26/22 00:58 Urine Appearance Clear (CLEAR) 08/26/22 00:58 Urine pH 5 (5-7) 08/26/22 00:58 Ur Specific Phyllis 1.020 (1.005-1.030) 08/26/22 00:58 Urine Protein 1+ (Negative) H 08/26/22 00:58 Urine Glucose (UA) Norm (Normal) 08/26/22 00:58 Urine Ketones 1+ (Negative) H 08/26/22 00:58 Urine Blood 3+ (Negative) H 08/26/22 00:58 Urine Nitrate Negative (Negative) 08/26/22 00:58 Urine Bilirubin Neg (Negative) 08/26/22 00:58 Urine Urobilinogen Neg mg/dL (Negative) 08/26/22 00:58 Ur Leukocyte Esterase Negative (Negative) 08/26/22 00:58 Urine RBC 0-4 /hpf (0-2) H 08/26/22 00:58 Urine WBC 0-4 /hpf (0-5) H 08/26/22 00:58 Ur Squamous Epith Cells 0-4 /hpf (0-5) H 08/26/22 00:58 Amorphous Sediment Not Reportable 08/26/22 00:58 Urine Bacteria None /hpf (NONE) 08/26/22 00:58 U Random Total Protein 23 mg/dL 08/28/22 17:05 Ur Random Sodium 46 mmol/L 08/28/22 17:05 Ur Random Chloride 28 mmol/L 08/28/22 17:05 Urine Creatinine 48 mg/dL (39-259) 08/28/22 17:05 Vancomycin Trough 7.4 ug/mL (10-15) L 09/01/22 08:22 Urine Opiates Screen Negative ng/mL (Negative) 08/26/22 00:58 Ur Barbiturates Screen Negative ng/mL (Negative) 08/26/22 00:58 Ur Phencyclidine Scrn Negative ng/mL (Negative) 08/26/22 00:58 Ur Amphetamines Screen Negative ng/mL (Negative) 08/26/22 00:58 U Benzodiazepines Scrn Negative ng/mL (Negative) 08/26/22 00:58 Urine Cocaine Screen Negative ng/mL (Negative) 08/26/22 00:58 U Marijuana (THC) Screen Negative ng/mL (Negative) 08/26/22 00:58 Ethyl Alcohol < 10 mg/dL (0-10) 08/26/22 00:55 A&P Assessment and plan (1) Syncope: The etiology is not clear. The patient did not have any prolonged pauses or high degree AV block on the monitor. Possibility of cardiac arrhythmia causing this cannot be completely excluded. He has intermittent atrial fibrillation and some evidence of sinus ann-marie dysfunction. It might be appropriate at this point to send him home with an event monitor to look for any spontaneous episodes of symptomatic bradycardia or tachyarrhythmias. (2) Atrial fibrillation with rapid ventricular response: Patient is currently on metoprolol 12.5 mg p.o. twice daily and flecainide 50 mg p.o. twice daily. He may be kept on the current medications. He also may be started on oral anticoagulation. (3) Acute respiratory failure with hypoxia and hypercapnia: Patient is extubated. Respiratory status seems to be stable. Patient has some hoarseness of voice, possibly from the intubation. This seems to be improving. (4) Elevated troponin: The Myocardial perfusion imaging results where discussed the patient. He was found no evidence of ischemia, based on the perfusion scan. (5) Elevated blood pressure reading: The blood pressure seems to be under control. May continue on the current medications. (6) Acute kidney injury: His creatinine and BUN level has remarkably come down. Plan Other problems are As mentioned above. Patient may go home with an event monitor for 21 days If the patient continues remain stable, may be discharged home today. He is going back to [place] with [place] where he lives. He also would like to get established with the cardiology services there in [place]. He is going to talk to the [place] clinic and make those arrangements. Discussed with Dr. Reese Barton Medical Necessity Statement*: Disposition as per the primary Coding Level of Care Code 46936 Diagnoses Syncope R55 Atrial fibrillation with rapid ventricular response I48.91 Acute respiratory failure with hypoxia and hypercapnia J96.01; J96.02 Elevated troponin R77.8 Elevated blood pressure reading R03.0 Acute kidney injury N17.9
--- NOTE | 2022-09-02 16:46 | PC.NURSE ---
Patient discharged. IV removed. activity, new medication, and appointment education provided to patient and . Meds to bed used so patient left with medications in hand. Patient signature form signed.
== END 2022-09-02 16:00 | disposition home health service (06) | DRG 208 ==
LOC: ER 04:26 → ICU 08:05
PROVIDERS: Hospitalist; Internal Medicine; Internal Medicine Cardiovascular Disease; Admitting Provider Hospitalist; Emergency Provider Emergency Medicine; Visit Provider Student in an Organized Health Care Education/Training Program
DX: J96.01 Acute respiratory failure with hypoxia (principal); I21.A1 Myocardial infarction type 2; N17.0 Acute kidney failure with tubular necrosis; M62.82 Rhabdomyolysis; E87.20 Acidosis, unspecified; J96.02 Acute respiratory failure with hypercapnia; I48.0 Paroxysmal atrial fibrillation; I12.9 Hypertensive chronic kidney disease with stage 1 through stage 4 chronic kidney disease, or unspecified chronic kidney disease; N18.9 Chronic kidney disease, unspecified; R55 Syncope and collapse; N28.1 Cyst of kidney, acquired; I95.9 Hypotension, unspecified; I49.5 Sick sinus syndrome; Z99.89 Dependence on other enabling machines and devices; Z91.199 Patient's noncompliance with other medical treatment and regimen due to unspecified reason; D69.6 Thrombocytopenia, unspecified; B95.62 Methicillin resistant Staphylococcus aureus infection as the cause of diseases classified elsewhere; E87.6 Hypokalemia; I51.7 Cardiomegaly; G89.29 Other chronic pain; F41.9 Anxiety disorder, unspecified; D75.1 Secondary polycythemia; M19.90 Unspecified osteoarthritis, unspecified site; R73.9 Hyperglycemia, unspecified; I25.10 Atherosclerotic heart disease of native coronary artery without angina pectoris; G25.81 Restless legs syndrome; F43.10 Post-traumatic stress disorder, unspecified; G47.33 Obstructive sleep apnea (adult) (pediatric); Z82.49 Family history of ischemic heart disease and other diseases of the circulatory system; F40.240 Claustrophobia
CPT/HCPCS: 12345; 36415; 36416; 36600; 51702; 70450; 71045; 71250; 72125; 74176; 76770; 78452; 80048; 80051; 80053; 80061; 80202; 80306; 80307; 81001; 82330; 82436; 82550; 82553; 82575; 82803; 82805; 82962; 83036; 83605; 83735; 83880; 84146; 84156; 84300; 84439; 84443; 84481; 84484; 85025; 85362; 85378; 85384; 85610; 85730; 87040; 87070; 87205; 87641; 92507; 92523; 92526; 92610; 93005; 93017; 93306; 93880; 93970; 94002; 94003; 94799; 96365; 96366; 96367; 96372; 96374; 96375; 96376; 97110; 97112; 97161; 97166; 97530; 97535; 99291; 99292; A9500; C9113; J0330; J1644; J1650; J1815; J1956; J2020; J2543; J2704; J2785; J3010; J3370; J3480; J3490; J7030; J7040; J7050; J7070; Q0161; Q3014